=== PATIENT | female | born 1940 | race Caucasian/White ===

== ENCOUNTER 2020-08-02 10:29 | Outpatient (REF) | payer MEDICARE, SELFPAY ==
[2020-08-02 11:45] LABS: Estimated Average Glucose 192 mg/dL; Hemoglobin A1c % 8.3 %
[2020-08-02 12:05] LABS: Alanine Aminotransferase 16 U/L (0-31); Albumin Level 4.2 g/dL (3.5-5.0); Alkaline Phosphatase 49 U/L (39-117); Anion Gap 13 (12-20); Aspartate Amino Transferase 18 U/L (5-31); Bilirubin Total 0.3 mg/dL (0.0-1.0); Blood Urea Nitrogen 17 mg/dL (9-16); Calcium 9.1 mg/dL (8.4-10.2); Carbon Dioxide 25 mmol/L (22-29); Chloride 106 mmol/L (96-108); Estimated Glomerular Filt Rate > 60; Glucose Random 160 mg/dL (60-115); Potassium 4.1 mmol/l (3.3-5.1); Sodium 140 mmol/L (135-145); Total Protein 7.2 g/dL (6.5-8.0)
[2020-08-02 12:15] LABS: Ferritin 18 ng/mL (10-250)
== END 2020-08-02 10:30 | disposition home or self-care (01) ==
LOC: HO.LAB 10:29
PROVIDERS: PCP Internal Medicine; Visit Provider Internal Medicine
DX: Z00.01 Encounter for general adult medical examination with abnormal findings (principal); D64.89 Other specified anemias; E11.65 Type 2 diabetes mellitus with hyperglycemia; N18.30 Chronic kidney disease, stage 3 unspecified; E78.00 Pure hypercholesterolemia, unspecified
CPT/HCPCS: 80053; 82728; 83036

== ENCOUNTER 2020-10-19 10:38 | Outpatient (REF) | payer MEDICARE, SELFPAY ==
[2020-10-19 12:13] LABS: Blood Urea Nitrogen 19 mg/dL (9-16); Estimated Glomerular Filt Rate > 60
== END 2020-10-19 10:39 | disposition home or self-care (01) ==
LOC: HO.LAB 10:38
PROVIDERS: PCP Internal Medicine; Visit Provider Radiology Vascular & Interventional Radiology
DX: R79.89 Other specified abnormal findings of blood chemistry (principal); R94.4 Abnormal results of kidney function studies
CPT/HCPCS: 36415; 82565; 84520

== ENCOUNTER 2021-04-19 11:36 | Outpatient (REF) | payer MEDICARE, SELFPAY ==
[2021-04-19 12:38] LABS: MANUAL DIFF FLAG NO
[2021-04-19 12:45] LABS: Basophils Percent Auto 0.5 % (0-2); Eosinophils Absolute Auto 0.2 X10*3/uL (0.0-0.4); Eosinophils Percent Auto 2.1 % (0-4); Hematocrit 37.2 % (37-47); Imm Gran Abs Auto 0.03 X10*3/uL (0.00-0.03); Imm Gran Pct Auto 0.4 % (0.0-0.4); Lymphocytes Absolute Auto 3.1 X10*3/uL (1.2-4.9); Lymphocytes Percent Auto 39.8 % (20-40); Mean Corpuscular HGB Conc 32.3 g/dl (31.0-35.0); Mean Corpuscular Hemoglobin 29.6 pg (27.0-33.0); Mean Corpuscular Volume 91.9 fL (80-98); Mean Platelet Volume 10.5 fL (9.4-12.3); Monocytes Absolute Auto 0.9 X10*3/uL (0.1-1.2); Monocytes Percent Auto 12.1 % (2-11); Neutrophils Absolute Auto 3.5 X10*3/uL (2.0-8.3); Neutrophils Percent Auto 45.1 % (45-73); Platelet Count 244 X10*3/uL (160-400); Red Blood Count 4.05 X10*6/uL (4.20-5.50); Red Cell Distribution Width 13.9 % (11.0-16.0); White Blood Count 7.8 X10*3/uL (4.8-10.8)
[2021-04-19 13:52] LABS: Alanine Aminotransferase 14 U/L (0-31); Albumin Level 4.2 g/dL (3.5-5.0); Alkaline Phosphatase 52 U/L (39-117); Anion Gap 14 (12-20); Aspartate Amino Transferase 20 U/L (5-31); Bilirubin Total 0.5 mg/dL (0.0-1.0); Blood Urea Nitrogen 20 mg/dL (9-16); Calcium 9.8 mg/dL (8.4-10.2); Carbon Dioxide 23 mmol/L (22-29); Chloride 107 mmol/L (96-108); Estimated Glomerular Filt Rate 59; Glucose Random 146 mg/dL (60-115); Potassium 4.2 mmol/L (3.3-5.1); Sodium 140 mmol/L (135-145); Total Protein 7.2 g/dL (6.5-8.0)
[2021-04-19 13:57] LABS: Vitamin B12 840 pg/mL (200-900)
[2021-04-19 14:12] LABS: Ferritin 31 ng/mL (10-250)
[2021-04-19 14:25] LABS: Estimated Average Glucose 171 mg/dL; Hemoglobin A1c % 7.6 %
== END 2021-04-19 11:37 | disposition home or self-care (01) ==
LOC: HO.LAB 11:36
PROVIDERS: PCP Internal Medicine; Visit Provider Internal Medicine
DX: D50.8 Other iron deficiency anemias (principal); E11.9 Type 2 diabetes mellitus without complications; E78.00 Pure hypercholesterolemia, unspecified; R80.9 Proteinuria, unspecified
CPT/HCPCS: 36415; 80053; 82607; 82728; 83036; 85025

== ENCOUNTER 2021-09-04 09:35 | Outpatient (REF) | payer MEDICARE, SELFPAY ==
[2021-09-04 10:21] LABS: Estimated Average Glucose 148 mg/dL; Hemoglobin A1c % 6.8 %
[2021-09-04 10:34] LABS: Alanine Aminotransferase 24 U/L (0-31); Albumin Level 4.3 g/dL (3.5-5.0); Alkaline Phosphatase 50 U/L (39-117); Anion Gap 13 (12-20); Aspartate Amino Transferase 32 U/L (5-31); Bilirubin Total 0.7 mg/dL (0.0-1.0); Blood Urea Nitrogen 20 mg/dL (9-16); Calcium 10.2 mg/dL (8.4-10.2); Carbon Dioxide 24 mmol/L (22-29); Chloride 107 mmol/L (96-108); Cholesterol 117 mg/dL; Estimated Glomerular Filt Rate 58; Glucose Random 109 mg/dL (60-115); HDL Cholesterol 40 mg/dL; LDL Cholesterol Calculated 57 mg/dl; Potassium 3.9 mmol/L (3.3-5.1); Sodium 140 mmol/L (135-145); Total Protein 7.4 g/dL (6.5-8.0); Triglycerides 103 mg/dL
== END 2021-09-04 09:36 | disposition home or self-care (01) ==
LOC: HO.LAB 09:35
PROVIDERS: PCP Internal Medicine; Visit Provider Internal Medicine
DX: Z00.00 Encounter for general adult medical examination without abnormal findings (principal); E11.9 Type 2 diabetes mellitus without complications; E78.00 Pure hypercholesterolemia, unspecified; I10 Essential (primary) hypertension
CPT/HCPCS: 36415; 80053; 80061; 83036

== ENCOUNTER 2021-12-04 08:12 | Outpatient (REF) | payer MEDICARE, SELFPAY ==
[2021-12-04 09:00] LABS: MANUAL DIFF FLAG NO
[2021-12-04 09:51] LABS: Basophils Absolute Auto 0.1 X10*3/uL (0.0-0.2); Basophils Percent Auto 0.6 % (0-2); Eosinophils Absolute Auto 0.2 X10*3/uL (0.0-0.4); Eosinophils Percent Auto 1.8 % (0-4); Hemoglobin 11.3 g/dl (12.0-16.0); Imm Gran Abs Auto 0.04 X10*3/uL (0.00-0.03); Imm Gran Pct Auto 0.4 % (0.0-0.4); Lymphocytes Absolute Auto 2.8 X10*3/uL (1.2-4.9); Lymphocytes Percent Auto 31.1 % (20-40); Mean Corpuscular HGB Conc 31.4 g/dl (31.0-35.0); Mean Corpuscular Hemoglobin 29.7 pg (27.0-33.0); Mean Corpuscular Volume 94.7 fL (80.0-98.0); Mean Platelet Volume 10.8 fL (9.4-12.3); Monocytes Absolute Auto 1.2 X10*3/uL (0.1-1.2); Monocytes Percent Auto 13.6 % (2-11); Neutrophils Absolute Auto 4.7 x10*3/uL (2.0-8.3); Neutrophils Percent Auto 52.5 % (45-73); Platelet Count 221 X10*3/uL (160-400); Red Cell Distribution Width 13.3 % (11.0-16.0); White Blood Count 8.9 X10*3/uL (4.8-10.8)
[2021-12-04 10:10] LABS: Estimated Average Glucose 143 mg/dL; Hemoglobin A1C 152.2565 umol/L; Hemoglobin A1c % 6.6 %
[2021-12-04 10:32] LABS: Alanine Aminotransferase 22 U/L (0-31); Albumin Level 4.1 g/dL (3.5-5.0); Alkaline Phosphatase 43 U/L (39-117); Anion Gap 15 (12-20); Aspartate Amino Transferase 26 U/L (5-31); Bilirubin Total 0.5 mg/dL (0.0-1.0); Blood Urea Nitrogen 16 mg/dL (9-16); Calcium 9.7 mg/dL (8.4-10.2); Carbon Dioxide 22 mmol/L (22-29); Chloride 105 mmol/L (96-108); Estimated Glomerular Filt Rate > 60; Glucose Random 125 mg/dL (60-115); Potassium 3.9 mmol/L (3.3-5.1); Sodium 138 mmol/L (135-145); Total Protein 6.8 g/dL (6.5-8.0)
[2021-12-04 10:51] LABS: Vitamin B12 1290 pg/mL (200-900)
[2021-12-04 11:29] LABS: Microalbum/Creatinine Ratio Ur 48.4 ug/mg cr
== END 2021-12-04 08:13 | disposition home or self-care (01) ==
LOC: HO.LAB 08:12
PROVIDERS: PCP Internal Medicine; Visit Provider Internal Medicine
DX: D51.0 Vitamin B12 deficiency anemia due to intrinsic factor deficiency (principal); E11.9 Type 2 diabetes mellitus without complications; E78.00 Pure hypercholesterolemia, unspecified; I10 Essential (primary) hypertension
CPT/HCPCS: 36415; 80053; 82043; 82607; 83036; 85025

== ENCOUNTER 2022-05-04 08:19 | Outpatient (REF) | payer MEDICARE, SELFPAY ==
[2022-05-04 08:37] LABS: MANUAL DIFF FLAG NO
[2022-05-04 09:30] LABS: Estimated Average Glucose 137 mg/dL; Hemoglobin A1c % 6.4 %
[2022-05-04 09:33] LABS: Basophils Absolute Auto 0.1 X10*3/uL (0.0-0.2); Basophils Percent Auto 0.6 % (0-2); Eosinophils Absolute Auto 0.2 X10*3/uL (0.0-0.4); Eosinophils Percent Auto 2.2 % (0-4); Hematocrit 35.6 % (37.0-47.0); Hemoglobin 11.7 g/dl (12.0-16.0); Imm Gran Abs Auto 0.04 X10*3/uL (0.00-0.03); Imm Gran Pct Auto 0.4 % (0.0-0.4); Lymphocytes Absolute Auto 3.1 X10*3/uL (1.2-4.9); Lymphocytes Percent Auto 32.7 % (20-40); Mean Corpuscular HGB Conc 32.9 g/dl (31.0-35.0); Mean Corpuscular Hemoglobin 30.6 pg (27.0-33.0); Mean Corpuscular Volume 93.2 fL (80.0-98.0); Mean Platelet Volume 10.7 fL (9.4-12.3); Monocytes Absolute Auto 1.1 X10*3/uL (0.1-1.2); Monocytes Percent Auto 11.4 % (2-11); Neutrophils Absolute Auto 4.9 x10*3/uL (2.0-8.3); Neutrophils Percent Auto 52.7 % (45-73); Platelet Count 248 X10*3/uL (160-400); Red Blood Count 3.82 X10*6/uL (4.20-5.50); White Blood Count 9.4 X10*3/uL (4.8-10.8)
[2022-05-04 09:51] LABS: Alanine Aminotransferase 17 U/L (0-31); Albumin Level 4.2 g/dL (3.5-5.0); Alkaline Phosphatase 47 U/L (39-117); Anion Gap 17 (12-20); Aspartate Amino Transferase 26 U/L (5-31); Bilirubin Total 0.5 mg/dL (0.0-1.0); Blood Urea Nitrogen 17 mg/dL (9-16); Calcium 10.1 mg/dL (8.4-10.2); Carbon Dioxide 23 mmol/L (22-29); Chloride 106 mmol/L (96-108); Cholesterol 130 mg/dL; Estimated Glomerular Filt Rate 54; Glucose Random 125 mg/dL (60-115); HDL Cholesterol 46 mg/dL; LDL Cholesterol Calculated 60 mg/dl; Potassium 4.3 mmol/L (3.3-5.1); Sodium 142 mmol/L (135-145); Triglycerides 120 mg/dL
== END 2022-05-04 08:20 | disposition home or self-care (01) ==
LOC: HO.LAB 08:19
PROVIDERS: PCP Internal Medicine; Visit Provider Internal Medicine
DX: E11.9 Type 2 diabetes mellitus without complications (principal); E78.00 Pure hypercholesterolemia, unspecified; I10 Essential (primary) hypertension
CPT/HCPCS: 36415; 80053; 80061; 83036; 85025

== ENCOUNTER 2023-08-06 10:25 | Inpatient (IN) | payer MEDICARE, OTHER, SELFPAY ==
--- NOTE | ~2023-08-06 | CT_ITS ---
EXAMINATION: CT HEAD WITHOUT CONTRAST CT CERVICAL SPINE WITHOUT CONTRAST CLINICAL INFORMATION: Fall. Head strike. COMPARISON: None available. TECHNIQUE: Contiguous axial imaging was performed from the skull base to vertex without intravenous administration of contrast. This CT examination was performed using dose optimization techniques as appropriate, variously including the following: *Automated exposure control *Adjustment of mA and/or kV according to patient size (this includes techniques or standardized protocols for targeted exams where dose is matched to indication/reason for exam; i.e. extremities or head) *Use of iterative reconstruction technique DLP: 863 mGy-cm FINDINGS: There is mild cerebral volume loss with prominence of the lateral and the third ventricles. The cortical sulci are widened appropriately. The fourth ventricle and basal cisterns are normally outlined. There is mild bilateral periventricular and central white matter diminished attenuation. There is no acute territorial defect, hemorrhage or midline shift. The extra-axial spaces are unremarkable. Calvarium: Intact. Maxilla facial sinuses and mastoids: Clear as visualized. Cervical spine: The alignment is within normal limits. There is mild diffuse cervical disc degenerative change with mild loss of disc space, mild endplate change and posterior osteophytes associated with facet osteoarthritic change with multilevel mild spinal canal and neuroforaminal narrowing. There is no fracture. The soft tissues are unremarkable. The visualized upper lung jackson are clear. CT/CT head/brain wo IV con IMPRESSION: Mild cerebral volume loss and mild bilateral periventricular and central white matter diminished attenuation which is nonspecific but likely represent microvascular disease. No acute intracranial abnormality. Mild cervical disc degenerative change. No fracture or malalignment.
--- NOTE | ~2023-08-06 | CT_ITS ---
EXAMINATION: CT CHEST, ABDOMEN AND PELVIS WITH CONTRAST. CLINICAL INFORMATION: fall urinating blood + thinners. COMPARISON: 11/22/2016. TECHNIQUE: Multidetector volumetric imaging was performed from the thoracic inlet through the pubic symphysis following administration of 85 mL Omnipaque 300 intravenous contrast. Sagittal and coronal reformatted images were obtained on the technologist's workstation. This CT examination was performed using dose optimization techniques as appropriate, variously including the following: *Automated exposure control *Adjustment of mA and/or kV according to patient size (this includes techniques or standardized protocols for targeted exams where dose is matched to indication/reason for exam; i.e. extremities or head) *Use of iterative reconstruction technique DLP: 565 mGy-cm FINDINGS: CHEST: Lung: Bibasilar dependent airspace changes more likely due to atelectasis. No dense consolidation or significant nodularity. Central airways unremarkable. Mediastinum: Vascular calcification within the aorta. Central vessels are patent with prominent vascular calcification in the aorta and coronary vessels. Small hiatal hernia. Pericardium/Pleura: Small pericardial effusion and tiny bilateral pleural effusions. Chest Wall/Axilla: Unremarkable. ABDOMEN/PELVIS: Peritoneal Space:No significant free air or free fluid identified. Liver, Gallbladder, Biliary Tree: The liver is normal in size, shape, and attenuation. No focal hepatic lesion or biliary ductal dilatation is present. The gallbladder is unremarkable with no evidence of radiopaque gallstones, gallbladder wall thickening, or obvious pericholecystic inflammatory changes. Pancreas: Atrophic Spleen: Unremarkable. Adrenal Glands: Mild fullness to the left adrenal gland similar to the 2017 study. Right adrenal gland unremarkable Kidneys and Ureters: Bilateral hydronephrosis and hydroureter with some heterogeneous attenuation within the left renal parenchyma. Pyelonephritis would be difficult to exclude in the acute setting. Bladder: Markedly abnormal bladder with a large 5 cm bladder calculi. There is concentric bladder wall thickening and mucosal enhancement concerning for underlying infectious etiology. Low-lying bladder Gastrointestinal Tract: Colon is redundant with scattered colonic diverticulosis. Majority of the colon is decompressed which makes evaluation for wall thickening difficult. Visualized small bowel is grossly unremarkable. Stomach is decompressed. Abdominal Wall: No significant hernia is appreciated. Lymphovascular Structures: Extensive vascular calcification within the aorta iliac system.. Pelvic Viscera: Unremarkable. Osseus Structures: Multilevel degenerative changes in the spine. I do not appreciate any acute bony abnormality on these images. CT/CT abdomen pelvis w IV con IMPRESSION: 1. I do not appreciate any acute bony abnormality. Chronic appearing changes as described above. 2. Markedly abnormal bladder with concentric bladder wall thickening and mucosal enhancement concerning for underlying infectious etiology. There is bilateral hydronephrosis and hydroureter with some heterogeneous attenuation to the left renal parenchyma. Pyelonephritis would be difficult to exclude in the acute setting.
--- NOTE | ~2023-08-06 | CT_ITS ---
EXAMINATION: CT ABDOMEN AND PELVIS WITH CONTRAST CLINICAL INFORMATION: Hydronephrosis COMPARISON: CT abdomen and pelvis 08/06/2023 TECHNIQUE: Multidetector volumetric images were obtained from the superior aspect of the liver through the pubic symphysis following administration 85 mL of Omnipaque 350 intravenous contrast. Sagittal and coronal reformatted images were obtained on the technologist's workstation. Oral contrast: No This CT examination was performed using dose optimization techniques as appropriate, variously including the following: *Automated exposure control *Adjustment of mA and/or kV according to patient size (this includes techniques or standardized protocols for targeted exams where dose is matched to indication/reason for exam; i.e. extremities or head) *Use of iterative reconstruction technique DLP: 565 mGy-cm FINDINGS: LUNG BASES: There is bibasilar dependent atelectasis. Is a small left pleural effusion LIVER, GALLBLADDER, AND BILIARY TREE: The liver is normal in size, shape, and attenuation. No focal hepatic lesion or biliary ductal dilatation is present. The gallbladder is unremarkable with no evidence of radiopaque gallstones, gallbladder wall thickening, or obvious pericholecystic inflammatory changes. PANCREAS: The pancreas is atrophic. SPLEEN: Unremarkable. ADRENAL GLANDS: The left adrenal gland is enlarged measuring 1.9 x 1.5 cm. Right adrenal gland is normal. KIDNEYS AND URETERS: The kidneys are normal in size, shape, and attenuation. There is mild bilateral hydroureteronephrosis with dilated ureter extending into the bladder. BLADDER: Bladder is mildly distended with a large radiopaque measuring 5 cm. There is mild bladder wall thickening. GASTROINTESTINAL TRACT: There is scattered diverticula and moderate stool seen throughout the colon without colonic distention. The small bowel loops are normal caliber. The stomach is distended and recently ingested food. The appendix is normal caliber. ABDOMINAL WALL: No significant hernia is appreciated. LYMPH NODES: Normal. VASCULAR: Unremarkable. PELVIC VISCERA: No free fluid or free air. The uterus is midline. OSSEOUS STRUCTURES: Degenerative disc changes with vacuum disc phenomena at every disc level. Grade [address] over L[address]/CT abdomen pelvis w IV con IMPRESSION: 1. Mild bilateral hydroureteronephrosis with dilated ureter extending into the bladder. There is a large bladder calculus measuring 5 cm. There is mild bladder wall thickening. 2. Colonic diverticulosis without diverticulitis. 3. Small left pleural effusion with bibasilar dependent atelectasis. 4. Left adrenal gland enlargement. 5. Degenerative disc changes with vacuum disc phenomena at every disc level. Grade 1 anterolisthesis L4 over L5. 6. There is no major change compared to previous CT abdomen exam 08/06/2023 Fleischner guidelines were followed.
--- NOTE | ~2023-08-06 | CT_ITS ---
EXAMINATION: CT HEAD WITHOUT CONTRAST CT CERVICAL SPINE WITHOUT CONTRAST CLINICAL INFORMATION: Fall. Head strike. COMPARISON: None available. TECHNIQUE: Contiguous axial imaging was performed from the skull base to vertex without intravenous administration of contrast. This CT examination was performed using dose optimization techniques as appropriate, variously including the following: *Automated exposure control *Adjustment of mA and/or kV according to patient size (this includes techniques or standardized protocols for targeted exams where dose is matched to indication/reason for exam; i.e. extremities or head) *Use of iterative reconstruction technique DLP: 863 mGy-cm FINDINGS: There is mild cerebral volume loss with prominence of the lateral and the third ventricles. The cortical sulci are widened appropriately. The fourth ventricle and basal cisterns are normally outlined. There is mild bilateral periventricular and central white matter diminished attenuation. There is no acute territorial defect, hemorrhage or midline shift. The extra-axial spaces are unremarkable. Calvarium: Intact. Maxilla facial sinuses and mastoids: Clear as visualized. Cervical spine: The alignment is within normal limits. There is mild diffuse cervical disc degenerative change with mild loss of disc space, mild endplate change and posterior osteophytes associated with facet osteoarthritic change with multilevel mild spinal canal and neuroforaminal narrowing. There is no fracture. The soft tissues are unremarkable. The visualized upper lung jackson are clear. CT/CT cervical spine wo IV con IMPRESSION: Mild cerebral volume loss and mild bilateral periventricular and central white matter diminished attenuation which is nonspecific but likely represent microvascular disease. No acute intracranial abnormality. Mild cervical disc degenerative change. No fracture or malalignment.
[2023-08-06 10:52] VITALS: BP 120/72; BP 128/51; PULSE 69; PULSE 74; RESP 14; TEMP 36.7; O2SAT 97; O2SAT 98; BMI 19.7
[2023-08-06 11:08] LABS: Glucose, Whole Blood 172 mg/dL (60-115)
[2023-08-06 12:18] VITALS: BP 123/44; PULSE 73; RESP 15; O2SAT 98
--- NOTE | 2023-08-06 12:59 | MHC.EDTECH ---
pt was cleaned and changed into hospital gown. pt in bed comfortable with warm blankets. rn aware.
[2023-08-06 14:06] VITALS: BP 124/51; PULSE 67; RESP 20; TEMP 37; O2SAT 98
--- NOTE | 2023-08-06 15:34 | PC.NURSE ---
LATE ENTRY: PT FROM HOME VIA AMBULANCE. PER EMS PT FELL DOWN CARPETED STAIRS ON SATURDAY. PT'S SON RANCHO REPORTED THAT HE HEARD HE FALL AND FOUND HER LAYING ON HER BACK. HE HELPED HER UP OFF THE FLOOR. SINCE FALL PT HAS HAD INCREASED WEAKNESS. PT REPORTED THAT SHE HAS PAIN IN HER R ARM, R LEG, AND LOWER BACK. SHE DENIES HEADACHE/DIZZINESS.
--- NOTE | 2023-08-06 16:08 | ED.FALL ---
HPI - Fall General Chief Complaint: Fall Stated Complaint: FALL T-2,+HS,+THINNERS,HEAD LAC Time Seen by Provider: 08/06/23 16:05 Source: patient and EMS Mode of arrival: EMS Limitations: other (poor historian ) History of Present Illness HPI Narrative: 83-year-old female presents today for evaluation of sustaining a fall down 5 stairs 2 days ago. She reports head strike but denies loss of consciousness. Her son was there to assist here. She reports pain of the right hip and lower back worsened by weightbearing. Ambulation is difficult due to the pain. She reports increased weakness and slight confusion. She denies loss of sensation and foot drop. Patient has history of urinary incontinence-- she denies worsening of this. No nausea or vomiting. Reports hematuria this morning, no dysuria. No chest pain, palpitations, or shortness of breath. No dizziness or syncope. Related Data Home Medications Medication Instructions Recorded Confirmed atorvastatin 40 mg tablet 40 mg PO DAILY 08/06/23 08/06/23 clopidogrel 75 mg tablet 75 mg PO DAILY 08/06/23 08/06/23 metformin 1,000 mg tablet 1,000 mg PO Q12H 08/06/23 08/06/23 nitrofurantoin 1 cap PO BID 08/06/23 08/06/23 monohydrate/macrocrystals 100 mg capsule sitagliptin phosphate 100 mg 100 mg PO DAILY 08/06/23 08/06/23 tablet (Januvia) Allergies Allergy/AdvReac Type Severity Reaction Status Date / Time No Known Allergies Allergy Verified 08/06/23 11:19 [No Known Allergies*] Review of Systems Review of Systems: Constitutional : No Weight loss, No Fever, No Chills, ENT:: No visual changes Cardiovascular : No Chest Pain, No SOB Respiratory : No Cough, No Dyspnea Gastrointestinal : No Nausea, No Vomiting, No Diarrhea, No abdominal Pain, No Hematochezia, No Melena Genitourinary : No Dysuria, No Urinary Frequency, No Hematuria, No Urinary Incontinence, Musculoskeletal : positive lower back pain and hip pain Skin : No Skin Lesions, No rash Neuro : +Weakness. No Numbness, No Paresthesias, no loss of bowel or bladder incontinence, no saddle anesthesia PMFSH Past Medical History Medical History Mixed hyperlipidemia Essential hypertension Non-insulin dependent type 2 diabetes mellitus Social History Patient Tobacco Use Status: Never used Tobacco Physical Exam Vital Signs: Vital Signs: Last Vital Signs Temp 97.9 F 08/06/23 19:34 Pulse 74 08/06/23 19:34 Resp 16 08/06/23 19:34 BP 147/60 H 08/06/23 19:34 Pulse Ox 98 08/06/23 19:34 O2 Del Method Room Air 08/06/23 19:34 BMI result Body Mass Index 19.7 Appearance: Alert.? Oriented X3.? No acute distress.?Slow to follow commands. Head: Normocephalic, atraumatic, no step-offs or deformities Eyes: Pupils equal, round and reactive to light.? Neck: Normal inspection.? Neck supple.? CVS: Normal heart rate and rhythm.? Pulses normal.? Respiratory: No respiratory distress.? Breath sounds normal.? Abdomen: Soft and nontender.? Skin: Skin warm and dry.? Normal skin color.? Normal skin turgor.? Extremities: + echymosis overlying the right elbow. +Pain to palpation of the right hip. No overlying echymosis of the right hip. Right hip ROM limited by pain. Left hip with 5/5 strength and full ROM. 2+ DP and PT pulses bilaterally. Sensation intact in bilateral lower extremities. No lower extremity edema.? No calf ttp. Back: No midline tenderness, no C-spine tenderness, full range of motion, no CVA tenderness bilaterally Neuro: Oriented X 3.? No motor deficit.? No sensory deficit. CN 2-12 intact Course Reevaluation(s) Reevaluation #1: CBC with leukocytosis and a normocytic anemia significantly deviating from her baseline, will obtain an OBS rule out lower GI bleed. Chemistry revealing slightly elevated BUN likely secondary to poor p.o. intake dehydration, CPK within normal limits. Troponin 12.2, EKG nonischemic unlikely ACS. Urine is grossly infected 4+ bacteria, at this time infection suspected blood cultures, lactic acid and ceftriaxone ordered. Time: 18:09 Reevaluation #2: No bony abnormality. On CT chest. Markedly abnormal bladder with concentric bladder wall thickening and mucosal enhancement bilateral hydronephrosis and hydroureter with some heterogeneous attenuation in the left renal parenchyma pyelo cannot be excluded patient receiving ceftriaxone. No CVA tenderness. She is complaining of back pain but no acute findings of osseous structures on CT. The pelvis unremarkable. Head CT no acute intracranial abnormality no fracture or malalignment of cervical spine. Cerebral volume loss. Plan is hospital admission. Time: 19:48 Reevaluation #3: OBS negative. COVID negative. Patient will be seen by Urology tomorrow I did discuss this case with them. Plan hospital admission Time: 21:10 Medications Administered Discontinued Medications Generic Name Dose Route Start Last Admin Trade Name Freq PRN Reason Stop Dose Admin Ceftriaxone Sodium 1 gm/ 50 mls @ 100 mls/hr 08/06/23 18:08 08/06/23 19:55 Sodium Chloride IV 08/06/23 18:37 Infused ONCE ONE Infusion Iohexol 100 ml 08/06/23 18:34 08/06/23 18:35 Iohexol 350 Mg/Ml 100 Ml Infus..Btl IV 08/06/23 18:35 85 ml ONCE ONE Administration Medical Decision Making Medical Decision Making [facility] Narrative: 83-year-old female here for evaluation of increased weakness and right hip and lower back pain after sustaining a witnessed fall down carpeted stairs with associated head strike and no LOC. Physical exam + echymosis overlying the right elbow. +Pain to palpation of the right hip. No overlying echymosis of the right hip. Right hip ROM limited by pain. Left hip with 5/5 strength and full ROM. 2+ DP and PT pulses bilaterally. Sensation intact in bilateral lower extremities. No lower extremity edema.? No calf ttp. Likely right hip fracture, lumbar fracture, UTI, concussion unlikely rhabdomyolisis, cauda equinae, intracranial hemorrhage, ischemic stroke, posterior stroke, osteomyelitis, DE. Will rule out dysrthmia, electrolyte abnormalities and anemia . No preceding sx to fall unlikley acs, pe Plan: CT of chest, abdomen, and pelvis, CMP, CBC, CPK, urinalysis, lipase, troponin Differential Diagnosis Differential Diagnoses: The differential diagnosis associated with the presentation includes Likely right hip fracture, lumbar fracture, UTI, concussion unlikely rhabdomyolisis, cauda equinae, intracranial hemorrhage, ischemic stroke, posterior stroke, osteomyelitis, DE. Will rule out dysrthmia, electrolyte abnormalities and anemia . No preceding sx to fall unlikley acs, pe Admission/Observation Consideration of admission/observation: Escalation of care including admission/observation considered Consult Healthcare Provider Management of the patient was discussed with: Hospitalist Lab Data MDM Lab Attestation statement: I reviewed the patient's lab results. 08/06/23 17:07 08/06/23 17:07 Labs: Lab Results 08/06/23 08/06/23 08/06/23 Range/Units 11:05 16:55 17:07 WBC 15.0 H (4.8-10.8) X10*3/uL RBC 2.74 L D (4.20-5.50) X10*6/uL Hgb 7.4 L D (12.0-16.0) g/dl Hct 23.1 L D (37.0-47.0) % MCV 84.3 (80.0-98.0) fL MCH 27.0 (27.0-33.0) pg MCHC 32.0 (31.0-35.0) g/dl RDW 15.9 (11.0-16.0) % Plt Count 417 H D (160-400) X10*3/uL MPV 10.1 (9.4-12.3) fL Immature Gran % (Auto) 2.3 H (0.0-0.4) % Neut % (Auto) 71.2 (45-73) % Lymph % (Auto) 12.7 L (20-40) % [place] % (Auto) 12.7 H (2-11) % Eos % (Auto) 0.9 (0-4) % Baso % (Auto) 0.2 (0-2) % Lymph # (Auto) 1.9 (1.2-4.9) X10*3/uL [place] # (Auto) 1.9 H (0.1-1.2) X10*3/uL Eos # (Auto) 0.1 (0.0-0.4) X10*3/uL Baso # (Auto) 0.0 (0.0-0.2) X10*3/uL Abs Immat Gran (auto) 0.34 H (0.00-0.03) X10*3/uL Absolute Neuts (auto) 10.7 H (2.0-8.3) x10*3/uL Absolute Nucleated RBC 0.000 (0.0-0.012) X10*3/uL Nucleated RBC % (auto) 0.0 (0.0-0.2) /100WBC Smear Tech's Comments VERIFIED Sodium 134 L (135-145) mmol/L Potassium 4.3 (3.3-5.1) mmol/L Chloride 104 (96-108) mmol/L Carbon Dioxide 21 L (22-29) mmol/L Anion Gap 13 (12-20) BUN 19 H (9-16) mg/dL Creatinine 0.98 (0.5-1.4) mg/dL Estim Creat Clear Calc 37.4 Estimated GFR 54 POC Glucose 172 H (60-115) mg/dL Random Glucose 139 H (60-115) mg/dL Lactic Acid (0.5-2.0) mmol/L Calcium 8.3 L D (8.4-10.2) mg/dL Magnesium 1.7 (1.6-2.6) mg/dL Total Bilirubin 0.7 (0.0-1.0) mg/dL AST 48 H (5-31) U/L ALT 27 (0-31) U/L Alkaline Phosphatase 62 (39-117) U/L Total Creatine Kinase 55 (26-140) U/L Troponin I High Sens 12.2 (<3.5-17.0) ng/L Total Protein 6.3 L (6.5-8.0) g/dL Albumin 2.7 L (3.5-5.0) g/dL Lipase 18 (8-78) U/L Urine Color Yellow Urine Appearance Turbid Urine pH 7.0 (5.0-9.0) Ur Specific [place] 1.010 (1.005-1.025) Urine Protein 300 (3+) H (Neg-Trace) mg/dL Urine Glucose (UA) Negative (Negative) mg/dL Urine Ketones Negative (Negative) mg/dL Urine Blood Moderate (2+) H (Negative) Urine Nitrite Negative (Negative) Ur Leukocyte Esterase Large (3+) H (Negative) Urine RBC >20 H (0-2) /HPF Urine WBC >50 H (0-5) /HPF Ur Squamous Epith Cells 6-10 (0-2) /HPF Urine Bacteria 4+ (None Seen) Hyaline Casts 0-2 (0-2) /LPF COVID-19 (ABIODUN) Negative (Negative) COVID-19 Clin Com See Note 08/06/23 Range/Units 19:01 WBC (4.8-10.8) X10*3/uL RBC (4.20-5.50) X10*6/uL Hgb (12.0-16.0) g/dl Hct (37.0-47.0) % MCV (80.0-98.0) fL MCH (27.0-33.0) pg MCHC (31.0-35.0) g/dl RDW (11.0-16.0) % Plt Count (160-400) X10*3/uL MPV (9.4-12.3) fL Immature Gran % (Auto) (0.0-0.4) % Neut % (Auto) (45-73) % Lymph % (Auto) (20-40) % [place] % (Auto) (2-11) % Eos % (Auto) (0-4) % Baso % (Auto) (0-2) % Lymph # (Auto) (1.2-4.9) X10*3/uL [place] # (Auto) (0.1-1.2) X10*3/uL Eos # (Auto) (0.0-0.4) X10*3/uL Baso # (Auto) (0.0-0.2) X10*3/uL Abs Immat Gran (auto) (0.00-0.03) X10*3/uL Absolute Neuts (auto) (2.0-8.3) x10*3/uL Absolute Nucleated RBC (0.0-0.012) X10*3/uL Nucleated RBC % (auto) (0.0-0.2) /100WBC Smear Tech's Comments Sodium (135-145) mmol/L Potassium (3.3-5.1) mmol/L Chloride (96-108) mmol/L Carbon Dioxide (22-29) mmol/L Anion Gap (12-20) BUN (9-16) mg/dL Creatinine (0.5-1.4) mg/dL Estim Creat Clear Calc Estimated GFR POC Glucose (60-115) mg/dL Random Glucose (60-115) mg/dL Lactic Acid 1.1 (0.5-2.0) mmol/L Calcium (8.4-10.2) mg/dL Magnesium (1.6-2.6) mg/dL Total Bilirubin (0.0-1.0) mg/dL AST (5-31) U/L ALT (0-31) U/L Alkaline Phosphatase (39-117) U/L Total Creatine Kinase (26-140) U/L Troponin I High Sens (<3.5-17.0) ng/L Total Protein (6.5-8.0) g/dL Albumin (3.5-5.0) g/dL Lipase (8-78) U/L Urine Color Urine Appearance Urine pH (5.0-9.0) Ur Specific [place] (1.005-1.025) Urine Protein (Neg-Trace) mg/dL Urine Glucose (UA) (Negative) mg/dL Urine Ketones (Negative) mg/dL Urine Blood (Negative) Urine Nitrite (Negative) Ur Leukocyte Esterase (Negative) Urine RBC (0-2) /HPF Urine WBC (0-5) /HPF Ur Squamous Epith Cells (0-2) /HPF Urine Bacteria (None Seen) Hyaline Casts (0-2) /LPF COVID-19 (ABIODUN) (Negative) COVID-19 Clin Com Independent Interpretation I performed an independent interpretation of an: Plain X-Ray and CT Scan Radiology Impression Discussion of test interpretation with radiology: I have reviewed the radiologist's reading. Critical Care Time Critical Care Time Critical Care Time: Yes Total Critical Care Time: 45 Attestation: I attest to this time spent taking care of the patient, obtaining history, physical, reviewing labs, imaging, speaking to my attending, speaking to specialist. Discharge Plan Discharge Clinical Impression: Fall, Acute UTI, Physical deconditioning, Lower back pain, Bladder outlet obstruction Patient Disposition: Admitted As Inpatient Interventions: Admission Worksheet (ED) Last Done: 08/06/23 20:49 Discharge Date/Time: 08/06/23 20:49
--- NOTE | 2023-08-06 16:10 | ECG_ITS ---
Test Reason : FALL Blood Pressure : / mmHG Vent. Rate : 070 BPM Atrial Rate : 070 BPM P-R Int : 156 ms QRS Dur : 138 ms QT Int : 474 ms P-R-T Axes : 051 081 001 degrees QTc Int : 511 ms Normal sinus rhythm Right bundle branch block Abnormal ECG When compared with ECG of 27-NOV-2017 22:14, Minimal criteria for Inferior infarct are no longer Present Referred By: Iam Medina Electronically Signed By:SHANDA CLARK MD
[2023-08-06 16:30] VITALS: BP 164/66; PULSE 70; RESP 16; TEMP 37.1; O2SAT 98
--- NOTE | 2023-08-06 16:31 | MHC.EDTECH ---
This pct assumed care of pt at 1500 ,vitals taken ,ekg done and was read by Provider Pt was incontinent of urine ,vito care given ,clen gown on ,bed pads change and warm blanket given ,Pt call gonzalez within reach .
--- NOTE | 2023-08-06 16:56 | MHC.EDTECH ---
Patient was assisted unto bedpan ,void ,care given ,urine sample collected ,also covid swab all sent to lab .
[2023-08-06 17:06] LABS: Appearance Urine Turbid; Color Urine Yellow; Glucose Urine UA Negative (Negative); Leukocyte Esterase Urine Large (3+) (Negative); Nitrite Urine Negative (Negative); UMIC TRIGGER UACC YES; Urine Blood Moderate (2+) (Negative); Urine Ketones Negative (Negative); Urine Protein 300 (3+) mg/dL (Neg-Trace)
[2023-08-06 17:15] LABS: Bacteria Urine 4+ (None Seen); Hyaline Casts Urine 0-2 /LPF (0-2); RBC Urine >20 /HPF (0-2); UACC Culture Trigger YES; WBC Urine >50 /HPF (0-5)
[2023-08-06 17:17] LABS: COVID-19 Test Negative (Negative); IDNOW Serial# 08D9AD1C
[2023-08-06 17:28] LABS: Basophils Percent Auto 0.2 % (0-2); Eosinophils Absolute Auto 0.1 X10*3/uL (0.0-0.4); Eosinophils Percent Auto 0.9 % (0-4); Hematocrit 23.1 % (37.0-47.0); Hemoglobin 7.4 g/dl (12.0-16.0); Imm Gran Abs Auto 0.34 X10*3/uL (0.00-0.03); Imm Gran Pct Auto 2.3 % (0.0-0.4); Lymphocytes Absolute Auto 1.9 X10*3/uL (1.2-4.9); Lymphocytes Percent Auto 12.7 % (20-40); MANUAL DIFF FLAG SCAN; Mean Corpuscular Volume 84.3 fL (80.0-98.0); Mean Platelet Volume 10.1 fL (9.4-12.3); Monocytes Absolute Auto 1.9 X10*3/uL (0.1-1.2); Monocytes Percent Auto 12.7 % (2-11); Neutrophils Absolute Auto 10.7 x10*3/uL (2.0-8.3); Neutrophils Percent Auto 71.2 % (45-73); Platelet Count 417 X10*3/uL (160-400); Red Blood Count 2.74 X10*6/uL (4.20-5.50); Red Cell Distribution Width 15.9 % (11.0-16.0); SCAN SMEAR FLAG 1
[2023-08-06 17:34] LABS: Alanine Aminotransferase 27 U/L (0-31); Albumin Level 2.7 g/dL (3.5-5.0); Alkaline Phosphatase 62 U/L (39-117); Anion Gap 13 (12-20); Aspartate Amino Transferase 48 U/L (5-31); Bilirubin Total 0.7 mg/dL (0.0-1.0); Blood Urea Nitrogen 19 mg/dL (9-16); Calcium 8.3 mg/dL (8.4-10.2); Carbon Dioxide 21 mmol/L (22-29); Chloride 104 mmol/L (96-108); Creatinine Clr Calc Pharmacy 37.4; Estimated Glomerular Filt Rate 54; Glucose Random 139 mg/dL (60-115); Lipase 18 U/L (8-78); Magnesium 1.7 mg/dL (1.6-2.6); Potassium 4.3 mmol/L (3.3-5.1); Sodium 134 mmol/L (135-145); Total Protein 6.3 g/dL (6.5-8.0)
[2023-08-06 17:41] LABS: Troponin-I High Sensitivity 12.2 ng/L (<3.5-17.0)
[2023-08-06 18:11] LABS: SLIDE REVIEW VERIFIED
--- NOTE | 2023-08-06 18:15 | PC.NURSE ---
20g iv inserted in LAC. labs drawn and sent. pt tolerated well.
[2023-08-06] MEDS: iohexoL 350 MG/ML 100 ML INFUS..BTL IV (18:35)
[2023-08-06 19:04] VITALS: BP 156/57; PULSE 72; RESP 16; TEMP 36.7
--- NOTE | 2023-08-06 19:04 | MHC.EDTECH ---
lACTIC ACID DRAWN INCLUDING BOTH SETS OF BLOOD CULTURE ,AND SENT TO LAB ,VITALS TAKEN ,PATIENT CALL HOLMAN WITHIN PT REACH .
--- NOTE | 2023-08-06 19:07 | PC.NURSE ---
assumed care of pt at this time 2nd blood cultures drawn however pt ripped out iv. attempting to reestablish access at this time.
[2023-08-06 19:16] LABS: Lactic Acid 1.1 mmol/L (0.5-2.0)
[2023-08-06] MEDS: cefTRIAXone sodium 1 GM in 0.9 % Sodium Chloride 50 ML IV (19:19)
--- NOTE | 2023-08-06 19:22 | PC.NURSE ---
iv established; abx infusing.
--- NOTE | 2023-08-06 19:33 | MHC.EDTECH ---
Patient was inconient of urine ,care given and bedding change ,warm blanket given .
[2023-08-06 19:34] VITALS: BP 147/60; PULSE 74; RESP 16; TEMP 36.6; O2SAT 98
--- NOTE | 2023-08-06 19:46 | P.HPHOSP_ITS ---
History of Present Illness Date of Service: 08/06/23 Chief Complaint: Fall This is a 83-year-old female with pertinent history of tqq-zspzgja-rrldekapt diabetes mellitus, essential hypertension, mixed hyperlipidemia who presents to the emergency department after a fall. Patient states she missed a step and fell down from the stairs. Did hit her head and has pain of the right hip after the fall. Did not lose consciousness prior to the fall. No chest pain or palpitations prior to the fall. No dizziness, lightheadedness or loss of consciousness. Has associated generalized weakness. Patient also complains of difficulty with urination, unclear duration. No dysuria. No fever, chills, chest discomfort, nausea, vomiting, palpitations, shortness of breath, abdominal pain, changes in bowel habits In the emergency department, imaging with bladder wall thickening and bilateral hydronephrosis with hydroureter. Urine concerning for UTI. Review of Systems 2 Constitutional: Constitutional: Reports fatigue and Reports weakness Cardiovascular: Cardiovascular: Reports no additional cardiovascular complaints Respiratory: Respiratory: Reports no additional respiratory complaints Gastrointestinal: Gastrointestinal: Reports no additional gastrointestinal complaints Genitourinary: Genitourinary: Reports urinary incontinence and Reports urinary hesitancy Neurologic: Reports weakness Endocrine: Endocrine: Reports fatigue PMFSH Medical History Mixed hyperlipidemia Essential hypertension Non-insulin dependent type 2 diabetes mellitus Pertinent family history: No family history of early CAD Patient Tobacco Use Status: Never used Tobacco Meds Allergies Allergy/AdvReac Type Severity Reaction Status Date / Time No Known Allergies Allergy Verified 08/06/23 11:19 [No Known Allergies*] Active Medications: Current Medications Acetaminophen (Acetaminophen 325 Mg Tablet) 650 mg PO Q6H PRN PRN Reason: Pain, Mild (Pain Scale 1-3) Dextrose (Dextrose 50 % 25 Gm/50 Ml Syringe) 25 gm IVPUSH Q15M PRN; Protocol PRN Reason: per Hypoglycemia Standing Ord. Enoxaparin Sodium (Enoxaparin Sodium 40 Mg/0.4 Ml Syringe) 40 mg SUBCUT Q24H JAZMYN Glucose (Glucose Gel 15 Gm Gel..Gram.) 15 gm PO Q15M PRN; Protocol PRN Reason: per Hypoglycemia Standing Ord. Ceftriaxone Sodium 1 gm/ (Sodium Chloride) 50 mls @ 100 mls/hr IV Q24H [facility] Insulin Human Lispro (Insulin Lispro 100 Unit/Ml 3 Ml Vial) 0 unit SUBCUT QIDACHS [facility]; Protocol Melatonin (Melatonin 3 Mg Tablet) 6 mg PO BEDTIME PRN PRN Reason: Insomnia Ondansetron HCl (Ondansetron Hcl 4 Mg/2 Ml Vial) 4 mg IVPUSH Q8H PRN PRN Reason: Nausea and Vomiting Sodium Chloride (0.9 % Sodium Chloride Flush 3 Ml Syringe) 3 ml IVFLUSH QSHIFT [facility] Home Medications Medication Instructions Recorded Confirmed Last Taken Type atorvastatin 40 mg tablet 40 mg PO DAILY 08/06/23 08/06/23 Unknown History clopidogrel 75 mg tablet 75 mg PO DAILY 08/06/23 08/06/23 Unknown History metformin 1,000 mg tablet 1,000 mg PO Q12H 08/06/23 08/06/23 Unknown History nitrofurantoin 1 cap PO BID 08/06/23 08/06/23 Unknown History monohydrate/macrocrystals 100 mg capsule sitagliptin phosphate 100 mg 100 mg PO DAILY 08/06/23 08/06/23 Unknown History tablet (Januvia) Physical Exam 2 Vital Signs and Narrative: Vital Signs: Last Vital Signs Temp 97.9 F 08/06/23 19:34 Pulse 74 08/06/23 19:34 Resp 16 08/06/23 19:34 BP 147/60 H 08/06/23 19:34 Pulse Ox 98 08/06/23 19:34 O2 Del Method Room Air 08/06/23 19:34 BMI result Body Mass Index 19.7 Elderly female lying in bed in no distress Neck supple, no JVD Regular rate and rhythm, S1-S2 heard Regular breath sounds bilaterally, no wheezing or crackles appreciated Abdomen soft nontender, no guarding, no rigidity, no CVA tenderness Patient is awake, alert and oriented to self, place, time and person ; follows commands Extremities: Ecchymosis over right upper extremity, limited range of motion of her right lower extremity due to pain Psych: Normal mood No pedal edema Results Labs 08/06/23 17:07 08/06/23 17:07 Labs: Laboratory Results - last 24 hr 08/06/23 08/06/23 08/06/23 11:05 16:55 17:07 MCV 84.3 MCH 27.0 MCHC 32.0 RDW 15.9 Plt Count 417 H D MPV 10.1 Immature Gran % (Auto) 2.3 H Neut % (Auto) 71.2 Lymph % (Auto) 12.7 L [place] % (Auto) 12.7 H Eos % (Auto) 0.9 Baso % (Auto) 0.2 Lymph # (Auto) 1.9 [place] # (Auto) 1.9 H Eos # (Auto) 0.1 Baso # (Auto) 0.0 Abs Immat Gran (auto) 0.34 H Absolute Neuts (auto) 10.7 H Absolute Nucleated RBC 0.000 Nucleated RBC % (auto) 0.0 Smear Tech's Comments VERIFIED Anion Gap 13 Estim Creat Clear Calc 37.4 Estimated GFR 54 POC Glucose 172 H Random Glucose 139 H Lactic Acid Calcium 8.3 L D Magnesium 1.7 Total Bilirubin 0.7 AST 48 H ALT 27 Alkaline Phosphatase 62 Total Creatine Kinase 55 Total Protein 6.3 L Albumin 2.7 L Lipase 18 Urine Color Yellow Urine Appearance Turbid Urine pH 7.0 Ur Specific [place] 1.010 Urine Protein 300 (3+) H Urine Glucose (UA) Negative Urine Ketones Negative Urine Blood Moderate (2+) H Urine Nitrite Negative Ur Leukocyte Esterase Large (3+) H Urine RBC >20 H Urine WBC >50 H Ur Squamous Epith Cells 6-10 Urine Bacteria 4+ Hyaline Casts 0-2 COVID-19 (ABIODUN) Negative COVID-19 Clin Com See Note 08/06/23 19:01 MCV MCH MCHC RDW Plt Count MPV Immature Gran % (Auto) Neut % (Auto) Lymph % (Auto) [place] % (Auto) Eos % (Auto) Baso % (Auto) Lymph # (Auto) [place] # (Auto) Eos # (Auto) Baso # (Auto) Abs Immat Gran (auto) Absolute Neuts (auto) Absolute Nucleated RBC Nucleated RBC % (auto) Smear Tech's Comments Anion Gap Estim Creat Clear Calc Estimated GFR POC Glucose Random Glucose Lactic Acid 1.1 Calcium Magnesium Total Bilirubin AST ALT Alkaline Phosphatase Total Creatine Kinase Total Protein Albumin Lipase Urine Color Urine Appearance Urine pH Ur Specific [place] Urine Protein Urine Glucose (UA) Urine Ketones Urine Blood Urine Nitrite Ur Leukocyte Esterase Urine RBC Urine WBC Ur Squamous Epith Cells Urine Bacteria Hyaline Casts COVID-19 (ABIODUN) COVID-19 Clin Com Imaging Radiologist's Impressions: Impressions Cervical Spine CT 08/06/23 18:35 IMPRESSION: Mild cerebral volume loss and mild bilateral periventricular and central white matter diminished attenuation which is nonspecific but likely represent microvascular disease. No acute intracranial abnormality. Mild cervical disc degenerative change. No fracture or malalignment. Head CT 08/06/23 18:35 IMPRESSION: Mild cerebral volume loss and mild bilateral periventricular and central white matter diminished attenuation which is nonspecific but likely represent microvascular disease. No acute intracranial abnormality. Mild cervical disc degenerative change. No fracture or malalignment. Abdomen/Pelvis CT 08/06/23 18:37 IMPRESSION: 1. I do not appreciate any acute bony abnormality. Chronic appearing changes as described above. 2. Markedly abnormal bladder with concentric bladder wall thickening and mucosal enhancement concerning for underlying infectious etiology. There is bilateral hydronephrosis and hydroureter with some heterogeneous attenuation to the left renal parenchyma. Pyelonephritis would be difficult to exclude in the acute setting. Chest CT 08/06/23 18:37 IMPRESSION: 1. I do not appreciate any acute bony abnormality. Chronic appearing changes as described above. 2. Markedly abnormal bladder with concentric bladder wall thickening and mucosal enhancement concerning for underlying infectious etiology. There is bilateral hydronephrosis and hydroureter with some heterogeneous attenuation to the left renal parenchyma. Pyelonephritis would be difficult to exclude in the acute setting. Assessment and Plan (1) Bilateral hydronephrosis: Status: Acute (2) Acute UTI: Status: Acute (3) Fall: Status: Acute Plan This is a 83-year-old female with pertinent history of vqr-lvbpccm-clugnvpuz diabetes mellitus, essential hypertension, mixed hyperlipidemia who presents to the emergency department after a fall. #. Acute UTI: Initiating empiric IV antibiotics. Follow urine culture. No sepsis #. Bilateral hydronephrosis with bilateral hydroureter: Grace catheter placed in the ER due to urinary retention. Urology consulted, appreciate assistance #. Right lower extremity pain with difficulty ambulation in the setting of mechanical fall: Consulting Physical therapy to evaluate and treat #. Normocytic anemia: Monitor H&H. Stool occult negative in the ER #. Asv-gkfnmbd-zlhvzwgzx diabetes mellitus: Initiating Accu-Cheks with sliding scale insulin #. Mixed hyperlipidemia: On statin DVT prophylaxis: Lovenox Admit as inpatient and will require two night minimum hospital stay for treatment of acute UTI with bilateral hydronephrosis with IV antibiotics (as above), which is not possible in a lesser acute setting. Specialist consult pending Quality Stroke Does the patient have a stroke diagnosis?: No VTE Prior VTE?: No VTE Risk Level:: Medical - moderate - high VTE Device Contraindication: Treatment Not Indicated VTE Drug Contraindication: N/A - Med Ordered
--- NOTE | 2023-08-06 19:49 | MHC.EDTECH ---
Patient was given tuna fish sandwich ,pudding and yaquelin radha for dinner ,Pt belongings list done .
--- NOTE | 2023-08-06 19:55 | PHA.MEDREC ---
Pharmacy Consult ? Medication Reconciliation Pharmacy has completed the medication reconciliation. Spoke with patient's son Alvaro. He recognize some of the names but not all of them. He is unsure if patient on nitrofurantoin but it was filled 08/02 for a 7 day supply. Danelle Goodman, PharmD
--- NOTE | 2023-08-06 20:03 | MHC.EDTECH ---
Patient stool cult collected and sent to lab .
[2023-08-06 20:09] LABS: OBS Int Ctl Valid YES; OBS1 NEGATIVE (NEGATIVE)
[2023-08-06 22:07] LABS: Glucose, Whole Blood 201 mg/dL (60-115)
[2023-08-07] VITALS (7 sets, daily range): BP systolic 120–140; BP diastolic 59–81; PULSE 69–78; RESP 16–18; TEMP 36.1–36.8; O2SAT 96–99
[2023-08-07] MEDS: 0.9 % Sodium Chloride Flush 3 ML SYRINGE IVFLUSH ×4 (00:50→19:11)
[2023-08-07 06:27] LABS: Basophils Percent Auto 0.3 % (0-2); Eosinophils Absolute Auto 0.1 X10*3/uL (0.0-0.4); Eosinophils Percent Auto 0.3 % (0-4); Hematocrit 21.7 % (37.0-47.0); Imm Gran Abs Auto 0.24 X10*3/uL (0.00-0.03); Imm Gran Pct Auto 1.7 % (0.0-0.4); Lymphocytes Absolute Auto 1.6 X10*3/uL (1.2-4.9); MANUAL DIFF FLAG SCAN; Mean Corpuscular HGB Conc 32.3 g/dl (31.0-35.0); Mean Corpuscular Hemoglobin 27.8 pg (27.0-33.0); Mean Corpuscular Volume 86.1 fL (80.0-98.0); Mean Platelet Volume 10.6 fL (9.4-12.3); Monocytes Absolute Auto 1.7 X10*3/uL (0.1-1.2); Monocytes Percent Auto 11.8 % (2-11); Neutrophils Absolute Auto 10.8 x10*3/uL (2.0-8.3); Neutrophils Percent Auto 74.9 % (45-73); Platelet Count 425 X10*3/uL (160-400); Red Blood Count 2.52 X10*6/uL (4.20-5.50); Red Cell Distribution Width 16.2 % (11.0-16.0); SCAN SMEAR FLAG 1; White Blood Count 14.4 X10*3/uL (4.8-10.8)
[2023-08-07 06:43] LABS: Anion Gap 13 (12-20); Blood Urea Nitrogen 18 mg/dL (9-16); Calcium 8.1 mg/dL (8.4-10.2); Carbon Dioxide 20 mmol/L (22-29); Chloride 106 mmol/L (96-108); Creatinine Clr Calc Pharmacy 35.3; Estimated Glomerular Filt Rate 51; Glucose Random 167 mg/dL (60-115); Potassium 3.5 mmol/L (3.3-5.1); Sodium 135 mmol/L (135-145)
[2023-08-07 07:56] LABS: Iron 18 mcg/dL (30-160); Percent Iron Saturation 8 % (15-50); Total Iron Binding Capacity 213 mcg/dL (228-428); Unsaturated Iron Binding 195 ug/dL
[2023-08-07 07:57] LABS: Glucose, Whole Blood 149 mg/dL (60-115)
[2023-08-07 08:30] LABS: SLIDE REVIEW VERIFIED
--- NOTE | 2023-08-07 09:08 | MHC.CLN ---
NUTRITION DIET CHANGED TO DIABETIC 1800 KCALS. PATIENT WITH DX DM AND TAKES DM MEDS.
[2023-08-07] MEDS: Atorvastatin Calcium 40 MG TABLET PO (09:09)
[2023-08-07] MEDS: SITagliptin Phosphate 100 MG TABLET PO (09:10)
[2023-08-07] MEDS: metFORMIN HCl 1,000 MG TABLET 1000 MG PO ×2 (09:10→16:40)
--- NOTE | 2023-08-07 11:10 | MHC.CM.PN ---
EMR REVIEWED, H&H DECREASING, TRANSFUCING AT TIME OF THIS NOTE, PT EVAL PENDING, NO PLAN FOR DC AT THIS TIME, CM WILL CONT TO FOLLOW.
--- NOTE | 2023-08-07 11:48 | P.PNIM_ITS ---
Subjective Subjective Date of Service: 08/07/23 Interval History: Seen and evaluated Feels weak Hb close to 7 no reported bleeding pending urine culture Review of Systems Review of Systems: Yes all other systems are reviewed and are negative Physical Exam 2 Vital Signs: Vital Signs: Last Vital Signs Temp 98 F 08/07/23 11:06 Pulse 73 08/07/23 11:06 Resp 17 08/07/23 11:06 BP 132/61 08/07/23 11:06 Pulse Ox 99 08/07/23 07:44 O2 Del Method Room Air 08/07/23 07:44 BMI result Body Mass Index 19.7 Const: Other: Constitutional : Awake, interactive, frail looking ,not in distress Neck : Normal inspection, Supple Cardiovascular : RRR, no JVP, no lower extremity edema Respiratory : good bilateral air entry, no crackles, wheezes or rhonchi Gastrointestinal: soft, lax, Normal bowel sounds, Non tender Skin : Warm, Dry Neurological : Alert & oriented to self and place, No focal deficit Objective Data Active Medications Acetaminophen (Acetaminophen 325 Mg Tablet) 650 mg PO Q6H PRN PRN Reason: Pain, Mild (Pain Scale 1-3) Atorvastatin Calcium (Atorvastatin Calcium 40 Mg Tablet) 40 mg PO DAILY [facility] Last Admin: 08/07/23 09:09 Dose: 40 mg Documented By: ALISON Clopidogrel Bisulfate (Clopidogrel Bisulfate 75 Mg Tablet) 75 mg PO DAILY [facility] Last Admin: 08/07/23 10:07 Dose: Not Given Documented By: ALISON Non-Admin Reason: hold per Dextrose (Dextrose 50 % 25 Gm/50 Ml Syringe) 25 gm IVPUSH Q15M PRN; Protocol PRN Reason: per Hypoglycemia Standing Ord. Enoxaparin Sodium (Enoxaparin Sodium 40 Mg/0.4 Ml Syringe) 40 mg SUBCUT Q24H [facility] Last Admin: 08/06/23 22:13 Dose: Not Given Documented By: ELLIE Non-Admin Reason: Patient Refused Glucose (Glucose Gel 15 Gm Gel..Gram.) 15 gm PO Q15M PRN; Protocol PRN Reason: per Hypoglycemia Standing Ord. Ceftriaxone Sodium 1 gm/ (Sodium Chloride) 50 mls @ 100 mls/hr IV Q24H [facility] Insulin Human Lispro (Insulin Lispro 100 Unit/Ml 3 Ml Vial) 0 unit SUBCUT QIDACHS [facility]; Protocol Last Admin: 08/07/23 08:39 Dose: Not Given Documented By: ALISON Non-Admin Reason: No Insulin Coverage Melatonin (Melatonin 3 Mg Tablet) 6 mg PO BEDTIME PRN PRN Reason: Insomnia Metformin HCl (Metformin Hcl 1,000 Mg Tablet) 1,000 mg PO BIDWM [facility] Last Admin: 08/07/23 09:10 Dose: 1,000 mg Documented By: ALISON Ondansetron HCl (Ondansetron Hcl 4 Mg/2 Ml Vial) 4 mg IVPUSH Q8H PRN PRN Reason: Nausea and Vomiting Sitagliptin Phosphate (Sitagliptin Phosphate 100 Mg Tablet) 100 mg PO DAILY [facility] Last Admin: 08/07/23 09:10 Dose: 100 mg Documented By: ALISON Sodium Chloride (0.9 % Sodium Chloride Flush 3 Ml Syringe) 3 ml IVFLUSH QSHIFT [facility] Last Admin: 08/07/23 09:10 Dose: 3 ml Documented By: ALISON Labs 08/08/23 05:45 08/08/23 05:45 Labs: Laboratory Results - last 24 hr 08/06/23 08/06/23 08/06/23 11:05 16:55 17:07 MCV 84.3 MCH 27.0 MCHC 32.0 RDW 15.9 Plt Count 417 H D MPV 10.1 Immature Gran % (Auto) 2.3 H Neut % (Auto) 71.2 Lymph % (Auto) 12.7 L [place] % (Auto) 12.7 H Eos % (Auto) 0.9 Baso % (Auto) 0.2 Lymph # (Auto) 1.9 [place] # (Auto) 1.9 H Eos # (Auto) 0.1 Baso # (Auto) 0.0 Abs Immat Gran (auto) 0.34 H Absolute Neuts (auto) 10.7 H Absolute Nucleated RBC 0.000 Nucleated RBC % (auto) 0.0 Smear Tech's Comments VERIFIED Anion Gap 13 Estim Creat Clear Calc 37.4 Estimated GFR 54 POC Glucose 172 H Random Glucose 139 H Lactic Acid Calcium 8.3 L D Magnesium 1.7 Iron TIBC % Saturation Unsat Iron Binding Total Bilirubin 0.7 AST 48 H ALT 27 Alkaline Phosphatase 62 Total Creatine Kinase 55 Total Protein 6.3 L Albumin 2.7 L Lipase 18 Urine Color Yellow Urine Appearance Turbid Urine pH 7.0 Ur Specific [place] 1.010 Urine Protein 300 (3+) H Urine Glucose (UA) Negative Urine Ketones Negative Urine Blood Moderate (2+) H Urine Nitrite Negative Ur Leukocyte Esterase Large (3+) H Urine RBC >20 H Urine WBC >50 H Ur Squamous Epith Cells 6-10 Urine Bacteria 4+ Hyaline Casts 0-2 Stool Occult Blood COVID-19 (ABIODUN) Negative COVID-19 Clin Com See Note Blood Type Antibody Screen Crossmatch 08/06/23 08/06/23 08/06/23 19:01 20:03 21:05 MCV MCH MCHC RDW Plt Count MPV Immature Gran % (Auto) Neut % (Auto) Lymph % (Auto) [place] % (Auto) Eos % (Auto) Baso % (Auto) Lymph # (Auto) [place] # (Auto) Eos # (Auto) Baso # (Auto) Abs Immat Gran (auto) Absolute Neuts (auto) Absolute Nucleated RBC Nucleated RBC % (auto) Smear Tech's Comments Anion Gap Estim Creat Clear Calc Estimated GFR POC Glucose 201 H Random Glucose Lactic Acid 1.1 Calcium Magnesium Iron TIBC % Saturation Unsat Iron Binding Total Bilirubin AST ALT Alkaline Phosphatase Total Creatine Kinase Total Protein Albumin Lipase Urine Color Urine Appearance Urine pH Ur Specific [place] Urine Protein Urine Glucose (UA) Urine Ketones Urine Blood Urine Nitrite Ur Leukocyte Esterase Urine RBC Urine WBC Ur Squamous Epith Cells Urine Bacteria Hyaline Casts Stool Occult Blood NEGATIVE COVID-19 (ABIODUN) COVID-19 Clin Com Blood Type Antibody Screen Crossmatch 08/07/23 08/07/23 08/07/23 05:36 07:43 08:49 MCV 86.1 MCH 27.8 MCHC 32.3 RDW 16.2 H Plt Count 425 H MPV 10.6 Immature Gran % (Auto) 1.7 H Neut % (Auto) 74.9 H Lymph % (Auto) 11.0 L [place] % (Auto) 11.8 H Eos % (Auto) 0.3 Baso % (Auto) 0.3 Lymph # (Auto) 1.6 [place] # (Auto) 1.7 H Eos # (Auto) 0.1 Baso # (Auto) 0.0 Abs Immat Gran (auto) 0.24 H Absolute Neuts (auto) 10.8 H Absolute Nucleated RBC 0.000 Nucleated RBC % (auto) 0.0 Smear Tech's Comments VERIFIED Anion Gap 13 Estim Creat Clear Calc 35.3 Estimated GFR 51 POC Glucose 149 H Random Glucose 167 H Lactic Acid Calcium 8.1 L Magnesium Iron 18 L TIBC 213 L % Saturation 8 L Unsat Iron Binding 195 Total Bilirubin AST ALT Alkaline Phosphatase Total Creatine Kinase Total Protein Albumin Lipase Urine Color Urine Appearance Urine pH Ur Specific [place] Urine Protein Urine Glucose (UA) Urine Ketones Urine Blood Urine Nitrite Ur Leukocyte Esterase Urine RBC Urine WBC Ur Squamous Epith Cells Urine Bacteria Hyaline Casts Stool Occult Blood COVID-19 (ABIODUN) COVID-19 Clin Com Blood Type A Negative Antibody Screen NEGATIVE Crossmatch See Detail Assessment and Plan (1) Symptomatic anemia: Status: Acute (2) Bilateral hydronephrosis: Status: Acute (3) Bladder outlet obstruction: Status: Acute (4) Acute UTI: Status: Acute (5) Fall: Status: Acute Plan This is a 83-year-old female with pertinent history of [id number] diabetes mellitus, essential hypertension, mixed hyperlipidemia who presents to the emergency department after a fall. # Acute UTI Pending urine culture IV antibiotics # Bilateral hydronephrosis with bilateral hydroureter Grace catheter placed urinary retention Urology consult # Right lower extremity pain with difficulty ambulation in the setting of mechanical fall Physical therapy to evaluate and treat # symptomatic Iron def. anemia patient feels weak and lethargic Hb down to 7 Transfuse a unit of PRBCs Stool occult negative, has mild Urine blood get GI eval # Nlo-[id number] diabetes mellitus Initiating Accu-Cheks with sliding scale insulin # Mixed hyperlipidemia On statin DVT prophylaxis: Lovenox Admit as inpatient and will require overnight hospital stay for treatment of acute UTI with bilateral hydronephrosis with IV antibiotics (as above), which is not possible in a lesser acute setting. Specialist consult pending Quality Stroke Does the patient have a stroke diagnosis?: No VTE Prior VTE?: No VTE Risk Level:: Medical - moderate - high VTE Device Contraindication: Treatment Not Indicated VTE Drug Contraindication: N/A - Med Ordered
[2023-08-07 11:49] LABS: Glucose, Whole Blood 206 mg/dL (60-115)
[2023-08-07] MEDS: Insulin Lispro 100 UNIT/ML 3 ML VIAL SUBCUT ×2 (11:55→20:59)
--- NOTE | 2023-08-07 12:17 | P.CNUR_ITS ---
History of Present Illness Consult details Consult date: 08/07/23 Narrative: CC: Bilateral hydronephrosis 83-year-old female Consult repeat bilateral hydronephrosis found on imaging Baseline creatinine 1.0 CT scan - Kidneys and Ureters: Bilateral hydronephrosis and hydroureter with some heterogeneous attenuation within the left renal parenchyma. Pyelonephritis would be difficult to exclude in the acute setting. Bladder: Markedly abnormal bladder with a large 5 cm bladder calculi. There is concentric bladder wall thickening and mucosal enhancement concerning for underlying infectious etiology. Low-lying bladder Neurogenic bladder with large bladder stone. Likely secondary to long-term diabetes although HbA1c has been relatively well controlled. Recommend Grace catheter at current hospital admission Will need outpatient bladder stone removal at later date. Review of Systems 2 Constitutional: Constitutional: Reports as per HPI and Reports no additional constitutional complaints Cardiovascular: Cardiovascular: Reports as per HPI and Reports no additional cardiovascular complaints Respiratory: Respiratory: Reports as per HPI and Reports no additional respiratory complaints Gastrointestinal: Gastrointestinal: Reports as per HPI and Reports no additional gastrointestinal complaints Genitourinary: Genitourinary: Reports as per HPI Musculoskeletal: Musculoskeletal: Reports no additional musculoskeletal complaints and Reports as per HPI Neurologic: Reports system reviewed and no additional complaints, except as documented and Reports as per HPI [facility] Past Medical History Medical History Mixed hyperlipidemia Essential hypertension Non-insulin dependent type 2 diabetes mellitus Social History Household Members: Family Housing: House Do you presently have visiting nurse or other home services: No Patient Tobacco Use Status: Never used Tobacco Meds Allergies Allergy/AdvReac Type Severity Reaction Status Date / Time No Known Allergies Allergy Verified 08/06/23 11:19 [No Known Allergies*] Active Medications: Current Medications Acetaminophen (Acetaminophen 325 Mg Tablet) 650 mg PO Q6H PRN PRN Reason: Pain, Mild (Pain Scale 1-3) Atorvastatin Calcium (Atorvastatin Calcium 40 Mg Tablet) 40 mg PO DAILY [facility] Last Admin: 08/07/23 09:09 Dose: 40 mg Clopidogrel Bisulfate (Clopidogrel Bisulfate 75 Mg Tablet) 75 mg PO DAILY [facility] Last Admin: 08/07/23 10:07 Dose: Not Given Dextrose (Dextrose 50 % 25 Gm/50 Ml Syringe) 25 gm IVPUSH Q15M PRN; Protocol PRN Reason: per Hypoglycemia Standing Ord. Enoxaparin Sodium (Enoxaparin Sodium 40 Mg/0.4 Ml Syringe) 40 mg SUBCUT Q24H [facility] Last Admin: 08/06/23 22:13 Dose: Not Given Glucose (Glucose Gel 15 Gm Gel..Gram.) 15 gm PO Q15M PRN; Protocol PRN Reason: per Hypoglycemia Standing Ord. Ceftriaxone Sodium 1 gm/ (Sodium Chloride) 50 mls @ 100 mls/hr IV Q24H [facility] Insulin Human Lispro (Insulin Lispro 100 Unit/Ml 3 Ml Vial) 0 unit SUBCUT QIDACHS [facility]; Protocol Last Admin: 08/07/23 11:55 Dose: 4 unit Melatonin (Melatonin 3 Mg Tablet) 6 mg PO BEDTIME PRN PRN Reason: Insomnia Metformin HCl (Metformin Hcl 1,000 Mg Tablet) 1,000 mg PO BIDWM [facility] Last Admin: 08/07/23 09:10 Dose: 1,000 mg Ondansetron HCl (Ondansetron Hcl 4 Mg/2 Ml Vial) 4 mg IVPUSH Q8H PRN PRN Reason: Nausea and Vomiting Sitagliptin Phosphate (Sitagliptin Phosphate 100 Mg Tablet) 100 mg PO DAILY [facility] Last Admin: 08/07/23 09:10 Dose: 100 mg Sodium Chloride (0.9 % Sodium Chloride Flush 3 Ml Syringe) 3 ml IVFLUSH QSHIFT [facility] Last Admin: 08/07/23 09:10 Dose: 3 ml Home Medications Medication Instructions Recorded Confirmed Last Taken Type atorvastatin 40 mg tablet 40 mg PO DAILY 08/06/23 08/06/23 Unknown History clopidogrel 75 mg tablet 75 mg PO DAILY 08/06/23 08/06/23 Unknown History metformin 1,000 mg tablet 1,000 mg PO Q12H 08/06/23 08/06/23 Unknown History nitrofurantoin 1 cap PO BID 08/06/23 08/06/23 Unknown History monohydrate/macrocrystals 100 mg capsule sitagliptin phosphate 100 mg 100 mg PO DAILY 08/06/23 08/06/23 Unknown History tablet (Januvia) Physical Exam 2 Vital Signs: Vital Signs: Last Vital Signs Temp 98 F 08/07/23 11:06 Pulse 73 08/07/23 11:06 Resp 17 08/07/23 11:06 BP 132/61 08/07/23 11:06 Pulse Ox 99 08/07/23 07:44 O2 Del Method Room Air 08/07/23 07:44 BMI result Body Mass Index 19.7 Const: General: cooperative, healthy appearing, comfortable and no acute distress Orientation/consciousness: patient oriented x3 HEENT: Face and sinus: Yes normal facial exam Mouth: moist mucous membranes Neck: Neck: Yes normal visual inspection, Yes full ROM and Yes trachea midline Chest: Chest palpation & inspection: normal inspection of the chest Resp: Effort & Inspection: normal respiratory effort, able to speak in complete sentences and no respiratory distress GI: Inspection: Yes normal to inspection Back/Spine/Pelvis: Cervical Spine: normal cervical lordosis Thoracic/Lumbar Spine: thoracic and lumbar spine normal to inspection Skin: General skin exam: no rashes or lesions noted Neuro: General: patient oriented x3, tone normal and moves all extremities Extrem: General: Yes normal to inspection and Yes capillary refill normal Results Labs 08/07/23 05:36 08/07/23 05:36 Labs: Abnormal lab results 08/06/23 08/06/23 08/06/23 Range/Units 11:05 16:55 17:07 WBC 15.0 H (4.8-10.8) X10*3/uL RBC 2.74 L D (4.20-5.50) X10*6/uL Hgb 7.4 L D (12.0-16.0) g/dl Hct 23.1 L D (37.0-47.0) % RDW (11.0-16.0) % Plt Count 417 H D (160-400) X10*3/uL Immature Gran % (Auto) 2.3 H (0.0-0.4) % Neut % (Auto) (45-73) % Lymph % (Auto) 12.7 L (20-40) % [place] % (Auto) 12.7 H (2-11) % [place] # (Auto) 1.9 H (0.1-1.2) X10*3/uL Abs Immat Gran (auto) 0.34 H (0.00-0.03) X10*3/uL Absolute Neuts (auto) 10.7 H (2.0-8.3) x10*3/uL Sodium 134 L (135-145) mmol/L Carbon Dioxide 21 L (22-29) mmol/L BUN 19 H (9-16) mg/dL POC Glucose 172 H (60-115) mg/dL Random Glucose 139 H (60-115) mg/dL Calcium 8.3 L D (8.4-10.2) mg/dL Iron (30-160) mcg/dL TIBC (228-428) mcg/dL % Saturation (15-50) % AST 48 H (5-31) U/L Total Protein 6.3 L (6.5-8.0) g/dL Albumin 2.7 L (3.5-5.0) g/dL Urine Protein 300 (3+) H (Neg-Trace) mg/dL Urine Blood Moderate (2+) H (Negative) Ur Leukocyte Esterase Large (3+) H (Negative) Urine RBC >20 H (0-2) /HPF Urine WBC >50 H (0-5) /HPF Crossmatch 08/06/23 08/07/23 08/07/23 Range/Units 21:05 05:36 07:43 WBC 14.4 H (4.8-10.8) X10*3/uL RBC 2.52 L (4.20-5.50) X10*6/uL Hgb 7.0 L* (12.0-16.0) g/dl Hct 21.7 L (37.0-47.0) % RDW 16.2 H (11.0-16.0) % Plt Count 425 H (160-400) X10*3/uL Immature Gran % (Auto) 1.7 H (0.0-0.4) % Neut % (Auto) 74.9 H (45-73) % Lymph % (Auto) 11.0 L (20-40) % [place] % (Auto) 11.8 H (2-11) % [place] # (Auto) 1.7 H (0.1-1.2) X10*3/uL Abs Immat Gran (auto) 0.24 H (0.00-0.03) X10*3/uL Absolute Neuts (auto) 10.8 H (2.0-8.3) x10*3/uL Sodium (135-145) mmol/L Carbon Dioxide 20 L (22-29) mmol/L BUN 18 H (9-16) mg/dL POC Glucose 201 H 149 H (60-115) mg/dL Random Glucose 167 H (60-115) mg/dL Calcium 8.1 L (8.4-10.2) mg/dL Iron 18 L (30-160) mcg/dL TIBC 213 L (228-428) mcg/dL % Saturation 8 L (15-50) % AST (5-31) U/L Total Protein (6.5-8.0) g/dL Albumin (3.5-5.0) g/dL Urine Protein (Neg-Trace) mg/dL Urine Blood (Negative) Ur Leukocyte Esterase (Negative) Urine RBC (0-2) /HPF Urine WBC (0-5) /HPF Crossmatch 08/07/23 08/07/23 Range/Units 08:49 11:34 WBC (4.8-10.8) X10*3/uL RBC (4.20-5.50) X10*6/uL Hgb (12.0-16.0) g/dl Hct (37.0-47.0) % RDW (11.0-16.0) % Plt Count (160-400) X10*3/uL Immature Gran % (Auto) (0.0-0.4) % Neut % (Auto) (45-73) % Lymph % (Auto) (20-40) % [place] % (Auto) (2-11) % [place] # (Auto) (0.1-1.2) X10*3/uL Abs Immat Gran (auto) (0.00-0.03) X10*3/uL Absolute Neuts (auto) (2.0-8.3) x10*3/uL Sodium (135-145) mmol/L Carbon Dioxide (22-29) mmol/L BUN (9-16) mg/dL POC Glucose 206 H (60-115) mg/dL Random Glucose (60-115) mg/dL Calcium (8.4-10.2) mg/dL Iron (30-160) mcg/dL TIBC (228-428) mcg/dL % Saturation (15-50) % AST (5-31) U/L Total Protein (6.5-8.0) g/dL Albumin (3.5-5.0) g/dL Urine Protein (Neg-Trace) mg/dL Urine Blood (Negative) Ur Leukocyte Esterase (Negative) Urine RBC (0-2) /HPF Urine WBC (0-5) /HPF Crossmatch See Detail Short CBC 08/06/23 08/07/23 Range/Units 17:07 05:36 WBC 15.0 H 14.4 H (4.8-10.8) X10*3/uL Hgb 7.4 L D 7.0 L* (12.0-16.0) g/dl Hct 23.1 L D 21.7 L (37.0-47.0) % Plt Count 417 H D 425 H (160-400) X10*3/uL BMP 08/06/23 08/07/23 17:07 05:36 Sodium 134 L 135 Potassium 4.3 3.5 Chloride 104 106 Carbon Dioxide 21 L 20 L BUN 19 H 18 H Creatinine 0.98 1.04 Calcium 8.3 L D 8.1 L Cardiac Enzymes 08/06/23 Range/Units 17:07 Total Creatine Kinase 55 (26-140) U/L Liver Function 08/06/23 Range/Units 17:07 Total Bilirubin 0.7 (0.0-1.0) mg/dL AST 48 H (5-31) U/L ALT 27 (0-31) U/L Alkaline Phosphatase 62 (39-117) U/L Albumin 2.7 L (3.5-5.0) g/dL Urine 08/06/23 Range/Units 16:55 Urine Color Yellow Urine Appearance Turbid Urine pH 7.0 (5.0-9.0) Ur Specific [place] 1.010 (1.005-1.025) Urine Protein 300 (3+) H (Neg-Trace) mg/dL Urine Glucose (UA) Negative (Negative) mg/dL All other labs normal. Assessment and Plan (1) Bilateral hydronephrosis: Status: Acute (2) Bladder outlet obstruction: Status: Acute (3) Bladder stones: Status: Acute (4) Diabetic neuropathy associated with diabetes mellitus due to underlying condition: Qualifiers: Diabetes mellitus complication detail: with other neurological complication Qualified Code(s): E08.49 - Diabetes mellitus due to underlying condition with other diabetic neurological complication Status: Acute Plan Grace catheter for current admission Outpatient stone procedure Procedures Date of Service Date of Service: 08/07/23
--- NOTE | 2023-08-07 14:44 | MHC.CM.PN ---
IMM 08/07/23, EMR REVIEWED, PT ADMITTED S/P FALL, PT WITH UTI AND KIDNEY STONE WILL NEED OUTPT FOLLOW-UP, CM MET W/PT AND PT'S SON, PT'S UNDERSTANDS /SPEAKS SOME DJIBOUTIAN HOWEVER PT'S SON RANCHO ANSWERED MOST QUESTIONS. PT LIVES W/ AND SON, IS INDEP W/ALL CARE, DENIES USE OF DME/SERVICES, GOAL FOR DC IS HOME SELF CARE. PT VERIFIES PCP IS DR SALDIVAR, SAROJ VACC X2, CM AWAITING GROUP FITNESS INSTRUCTOR/COMPUTER TO REVIEW HCP, PT WILL LIKELY COMPLETE.
[2023-08-07 16:11] LABS: Glucose, Whole Blood 107 mg/dL (60-115)
[2023-08-07] MEDS: cefTRIAXone sodium 1 GM in 0.9 % Sodium Chloride 50 ML IV (18:26)
[2023-08-07] MEDS: Enoxaparin Sodium 40 MG/0.4 ML SYRINGE SUBCUT (19:11)
[2023-08-07 20:36] LABS: Glucose, Whole Blood 159 mg/dL (60-115)
[2023-08-08 04:00] VITALS: BP 130/59; PULSE 69; RESP 16; TEMP 36; O2SAT 97
[2023-08-08 06:25] LABS: Hematocrit 23.9 % (37.0-47.0); Hemoglobin 7.8 g/dl (12.0-16.0); Mean Corpuscular HGB Conc 32.6 g/dl (31.0-35.0); Mean Corpuscular Hemoglobin 28.8 pg (27.0-33.0); Mean Corpuscular Volume 88.2 fL (80.0-98.0); Mean Platelet Volume 10.3 fL (9.4-12.3); Platelet Count 388 X10*3/uL (160-400); Red Blood Count 2.71 X10*6/uL (4.20-5.50); Red Cell Distribution Width 17.3 % (11.0-16.0); White Blood Count 12.7 X10*3/uL (4.8-10.8)
[2023-08-08 06:42] LABS: Anion Gap 11 (12-20); Blood Urea Nitrogen 22 mg/dL (9-16); Calcium 7.9 mg/dL (8.4-10.2); Carbon Dioxide 21 mmol/L (22-29); Chloride 108 mmol/L (96-108); Creatinine Clr Calc Pharmacy 35.3; Estimated Glomerular Filt Rate 51; Glucose Random 151 mg/dL (60-115); Potassium 3.6 mmol/L (3.3-5.1); Sodium 136 mmol/L (135-145)
[2023-08-08 07:29] VITALS: BP 138/62; PULSE 70; RESP 18; TEMP 36.6; O2SAT 97
[2023-08-08 07:42] LABS: Glucose, Whole Blood 138 mg/dL (60-115)
[2023-08-08] MEDS: Acetaminophen 325 MG TABLET 650 MG PO (08:38)
[2023-08-08] MEDS: Iron Sucrose Complex 200 MG in 0.9 % Sodium Chloride 100 ML 440 MG IV (08:39)
[2023-08-08] MEDS: SITagliptin Phosphate 100 MG TABLET PO (08:39)
[2023-08-08] MEDS: Atorvastatin Calcium 40 MG TABLET PO (08:39)
[2023-08-08] MEDS: metFORMIN HCl 1,000 MG TABLET 1000 MG PO ×2 (08:39→17:03)
[2023-08-08] MEDS: 0.9 % Sodium Chloride Flush 3 ML SYRINGE IVFLUSH ×3 (08:39→23:45)
--- NOTE | 2023-08-08 11:01 | P.CNGI_ITS ---
History of Present Illness Data of Consult Service Date: 08/08/23 Requesting physician: Nahun Escobar Primary Care Provider: Unknown Physician HPI Reason for consult: anemia 83-year-old female with history of [id number]-elcnqoisa diabetes mellitus, essential hypertension, mixed hyperlipidemia who I am seeing for assessment for anemia. Patient initially presented with a fall after she missed a step and fell down the stairs. She denies LOC but did hit her head and right hip. She denies chest pain or palpitations prior to the fall. Imaging revealed bladder wall thickening and bilateral hydronephrosis with hydroureter. She was assessed by urology for large bladder stone and neurogenic bladder and had brewer placed. She has moderate blood on UA. She denies melena, no rectal bleeding, nose bleeds or gum bleeding. During the admission her HGB was noted to be drifting down -she does admit to tiredness and feeling weak. Her mother had CRC aged 46, patient herself may have had a colonoscopy 20 yrs ago which was nml per her report Review of Systems 2 Review of Systems: Constitutional : No Weight loss, No Fever, No Chills ENT/Mouth : No sore throat, No Rhinorrhea Eyes: No Swelling, No Redness Cardiovascular : No Chest Pain, No SOB, No Edema Respiratory : No Cough, No Sputum, No Wheezing Gastrointestinal : see HPI Genitourinary : NO Dysuria, No Urinary Frequency, No Hematuria, No Urgency Musculoskeletal : No joint pain, No Myalgias, No Joint Swelling Skin : No Skin Lesions, No rash Neuro : + Weakness, No Numbness, No Dizziness, No Headache Psych : No Anxiety/Panic, No Depression Heme/Lymph: No Bruising, No Lymphadenopathy Endocrine : No Polyuria, No Polydipsia All other systems reviewed and are negative. [facility] Past Medical History Medical History Mixed hyperlipidemia Essential hypertension Non-insulin dependent type 2 diabetes mellitus Family History Pertinent family history: mother-CRC aged 46 Social History Household Members: Family Housing: House Do you presently have visiting nurse or other home services: No Patient Tobacco Use Status: Never used Tobacco service: No Meds Allergies Allergy/AdvReac Type Severity Reaction Status Date / Time No Known Allergies Allergy Verified 08/06/23 11:19 [No Known Allergies*] Active Medications: Current Medications Acetaminophen (Acetaminophen 325 Mg Tablet) 650 mg PO Q6H PRN PRN Reason: Pain, Mild (Pain Scale 1-3) Last Admin: 08/08/23 08:38 Dose: 650 mg Atorvastatin Calcium (Atorvastatin Calcium 40 Mg Tablet) 40 mg PO DAILY [facility] Last Admin: 08/08/23 08:39 Dose: 40 mg Clopidogrel Bisulfate (Clopidogrel Bisulfate 75 Mg Tablet) 75 mg PO DAILY [facility] Last Admin: 08/07/23 10:07 Dose: Not Given Dextrose (Dextrose 50 % 25 Gm/50 Ml Syringe) 25 gm IVPUSH Q15M PRN; Protocol PRN Reason: per Hypoglycemia Standing Ord. Enoxaparin Sodium (Enoxaparin Sodium 40 Mg/0.4 Ml Syringe) 40 mg SUBCUT Q24H [facility] Last Admin: 08/07/23 19:11 Dose: 40 mg Glucose (Glucose Gel 15 Gm Gel..Gram.) 15 gm PO Q15M PRN; Protocol PRN Reason: per Hypoglycemia Standing Ord. Ceftriaxone Sodium 1 gm/ (Sodium Chloride) 50 mls @ 100 mls/hr IV Q24H [facility] Last Infusion: 08/07/23 19:10 Dose: Infused Iron Sucrose 200 mg/ Sodium (Chloride) 110 mls @ 440 mls/hr IV DAILY [facility] Stop: 08/10/23 09:14 Last Infusion: 08/08/23 09:12 Dose: Infused Insulin Human Lispro (Insulin Lispro 100 Unit/Ml 3 Ml Vial) 0 unit SUBCUT QIDACHS [facility]; Protocol Last Admin: 08/08/23 08:33 Dose: Not Given Melatonin (Melatonin 3 Mg Tablet) 6 mg PO BEDTIME PRN PRN Reason: Insomnia Metformin HCl (Metformin Hcl 1,000 Mg Tablet) 1,000 mg PO BIDWM [facility] Last Admin: 08/08/23 08:39 Dose: 1,000 mg Ondansetron HCl (Ondansetron Hcl 4 Mg/2 Ml Vial) 4 mg IVPUSH Q8H PRN PRN Reason: Nausea and Vomiting Sitagliptin Phosphate (Sitagliptin Phosphate 100 Mg Tablet) 100 mg PO DAILY [facility] Last Admin: 08/08/23 08:39 Dose: 100 mg Sodium Chloride (0.9 % Sodium Chloride Flush 3 Ml Syringe) 3 ml IVFLUSH QSHIFT [facility] Last Admin: 08/08/23 08:39 Dose: 3 ml Home Medications Medication Instructions Recorded Confirmed Last Taken Type atorvastatin 40 mg tablet 40 mg PO DAILY 08/06/23 08/06/23 Unknown History clopidogrel 75 mg tablet 75 mg PO DAILY 08/06/23 08/06/23 Unknown History metformin 1,000 mg tablet 1,000 mg PO Q12H 08/06/23 08/06/23 Unknown History nitrofurantoin 1 cap PO BID 08/06/23 08/06/23 Unknown History monohydrate/macrocrystals 100 mg capsule sitagliptin phosphate 100 mg 100 mg PO DAILY 08/06/23 08/06/23 Unknown History tablet (Januvia) Physical Exam 2 Vital Signs: Vital Signs: Last Vital Signs Temp 97.8 F 08/08/23 07:29 Pulse 70 08/08/23 07:29 Resp 18 08/08/23 07:29 BP 138/62 08/08/23 07:29 Pulse Ox 97 08/08/23 07:29 O2 Del Method Room Air 08/08/23 07:29 BMI result Body Mass Index 19.7 EXAM: GENERAL: The patient is frail VITAL SIGNS:see workflow HEENT: Nonicteric sclerae, PERRLA, EOMI. Oropharynx clear. Moist mucous membranes. Conjunctivae appear pale. No thyroid mass. CHEST: Chest wall is nontender. HEART: Regular rate and rhythm without murmurs. LUNGS: Clear to auscultation bilaterally. ABDOMEN: Soft, positive bowel sounds, nontender, no organomegaly.no flank tenderness SKIN: No rash, no excessive bruising, petechiae, or purpura. NEUROLOGIC: Cranial nerves II-XII intact without motor/sensory deficit. Psych: Appearance: grossly normal Results Labs 08/08/23 05:45 08/08/23 05:45 Labs: Short CBC 08/08/23 Range/Units 05:45 WBC 12.7 H (4.8-10.8) X10*3/uL Hgb 7.8 L (12.0-16.0) g/dl Hct 23.9 L (37.0-47.0) % Plt Count 388 (160-400) X10*3/uL BMP 08/08/23 05:45 Sodium 136 Potassium 3.6 Chloride 108 Carbon Dioxide 21 L BUN 22 H Creatinine 1.04 Calcium 7.9 L Microbiology Microbiology Results: Microbiology 08/06/23 Unknown Urine clean catch Urine Culture - Preliminary Culture in progress. 08/06/23 19:02 Blood - Venous Blood Culture - Preliminary No growth after 24 hours. 08/06/23 19:02 Blood - Venous Blood Culture - Preliminary No growth after [address] scan - abdomen: Attestation: I personally reviewed and interpreted this imaging study as follows: (hydronephrosis,scoliosis, atherosclerosis) Assessment and Plan (1) Symptomatic anemia: Status: Acute Plan 1/ Anemia, no overt GIB, does have moderate blood on UA which may be the cause but given the family hx of CRC need to consider GI cause as well. She is also on plavix so slow blood loss mucosal bleeding also possible PLAN: 1/ Patient was offered EGD and colonoscopy for further investigation but she declined at this time, advised if she wishes to pursue can come back and discuss w/ her 2/ cont low dose PPi meantime ketan wth plavix hx. Procedures Date of Service Date of Service: 08/08/23
[2023-08-08 11:19] LABS: Glucose, Whole Blood 142 mg/dL (60-115)
--- NOTE | 2023-08-08 12:06 | P.PNIM_ITS ---
Subjective Subjective Date of Service: 08/08/23 Interval History: Seen and evaluated Feels weak and tired Hb improved to 7.8 no reported bleeding pending urine culture Review of Systems Review of Systems: Yes all other systems are reviewed and are negative Physical Exam 2 Vital Signs: Vital Signs: Last Vital Signs Temp 97.8 F 08/08/23 07:29 Pulse 70 08/08/23 07:29 Resp 18 08/08/23 07:29 BP 138/62 08/08/23 07:29 Pulse Ox 97 08/08/23 07:29 O2 Del Method Room Air 08/08/23 07:29 BMI result Body Mass Index 19.7 Const: Other: Constitutional : Awake, interactive, frail looking ,not in distress Neck : Normal inspection, Supple Cardiovascular : RRR, no JVP, no lower extremity edema Respiratory : good bilateral air entry, no crackles, wheezes or rhonchi Gastrointestinal: soft, lax, Normal bowel sounds, Non tender Skin : Warm, Dry Neurological : Alert & oriented to self and place, No focal deficit Objective Data Active Medications Acetaminophen (Acetaminophen 325 Mg Tablet) 650 mg PO Q6H PRN PRN Reason: Pain, Mild (Pain Scale 1-3) Last Admin: 08/08/23 08:38 Dose: 650 mg Documented By: ALISON Atorvastatin Calcium (Atorvastatin Calcium 40 Mg Tablet) 40 mg PO DAILY [facility] Last Admin: 08/08/23 08:39 Dose: 40 mg Documented By: ALISON Clopidogrel Bisulfate (Clopidogrel Bisulfate 75 Mg Tablet) 75 mg PO DAILY [facility] Last Admin: 08/07/23 10:07 Dose: Not Given Documented By: ALISON Non-Admin Reason: hold per Dextrose (Dextrose 50 % 25 Gm/50 Ml Syringe) 25 gm IVPUSH Q15M PRN; Protocol PRN Reason: per Hypoglycemia Standing Ord. Enoxaparin Sodium (Enoxaparin Sodium 40 Mg/0.4 Ml Syringe) 40 mg SUBCUT Q24H [facility] Last Admin: 08/07/23 19:11 Dose: 40 mg Documented By: [place] Glucose (Glucose Gel 15 Gm Gel..Gram.) 15 gm PO Q15M PRN; Protocol PRN Reason: per Hypoglycemia Standing Ord. Ceftriaxone Sodium 1 gm/ (Sodium Chloride) 50 mls @ 100 mls/hr IV Q24H [facility] Last Infusion: 08/07/23 19:10 Dose: Infused Documented By: [place] Iron Sucrose 200 mg/ Sodium (Chloride) 110 mls @ 440 mls/hr IV DAILY [facility] Stop: 08/10/23 09:14 Last Infusion: 08/08/23 09:12 Dose: Infused Documented By: ALISON Insulin Human Lispro (Insulin Lispro 100 Unit/Ml 3 Ml Vial) 0 unit SUBCUT QIDACHS [facility]; Protocol Last Admin: 08/08/23 08:33 Dose: Not Given Documented By: LAISON Non-Admin Reason: No Insulin Coverage Melatonin (Melatonin 3 Mg Tablet) 6 mg PO BEDTIME PRN PRN Reason: Insomnia Metformin HCl (Metformin Hcl 1,000 Mg Tablet) 1,000 mg PO BIDWM [facility] Last Admin: 08/08/23 08:39 Dose: 1,000 mg Documented By: ALISON Ondansetron HCl (Ondansetron Hcl 4 Mg/2 Ml Vial) 4 mg IVPUSH Q8H PRN PRN Reason: Nausea and Vomiting Sitagliptin Phosphate (Sitagliptin Phosphate 100 Mg Tablet) 100 mg PO DAILY [facility] Last Admin: 08/08/23 08:39 Dose: 100 mg Documented By: ALISON Sodium Chloride (0.9 % Sodium Chloride Flush 3 Ml Syringe) 3 ml IVFLUSH QSHIFT [facility] Last Admin: 08/08/23 08:39 Dose: 3 ml Documented By: ALISON Labs 08/08/23 05:45 08/08/23 05:45 Labs: Laboratory Results - last 24 hr 08/07/23 08/07/23 08/07/23 05:36 08:49 16:07 MCV MCH MCHC RDW Plt Count MPV Absolute Nucleated RBC Nucleated RBC % (auto) Smear Path Review SEE NOTE Anion Gap Estim Creat Clear Calc Estimated GFR POC Glucose 107 Random Glucose Calcium Crossmatch See Detail 08/07/23 08/08/23 08/08/23 20:29 05:45 07:27 MCV 88.2 MCH 28.8 MCHC 32.6 RDW 17.3 H Plt Count 388 MPV 10.3 Absolute Nucleated RBC 0.000 Nucleated RBC % (auto) 0.0 Smear Path Review Anion Gap 11 L Estim Creat Clear Calc 35.3 Estimated GFR 51 POC Glucose 159 H 138 H Random Glucose 151 H Calcium 7.9 L Crossmatch 08/08/23 11:00 MCV MCH MCHC RDW Plt Count MPV Absolute Nucleated RBC Nucleated RBC % (auto) Smear Path Review Anion Gap Estim Creat Clear Calc Estimated GFR POC Glucose 142 H Random Glucose Calcium Crossmatch Microbiology Microbiology Results: Microbiology 08/06/23 Unknown Urine Culture - Preliminary Urine clean catch Culture in progress. 08/06/23 19:02 Blood Culture - Preliminary Blood - Venous No growth after 24 hours. 08/06/23 19:02 Blood Culture - Preliminary Blood - Venous No growth after 24 hours. Assessment and Plan (1) Symptomatic anemia: Status: Acute (2) Bilateral hydronephrosis: Status: Acute (3) Bladder outlet obstruction: Status: Acute (4) Acute UTI: Status: Acute (5) Physical deconditioning: Status: Acute Plan This is a 83-year-old female with pertinent history of [id number] diabetes mellitus, essential hypertension, mixed hyperlipidemia who presents to the emergency department after a fall. # Acute UTI Pending urine culture IV Ceftriaxone # symptomatic Iron def. anemia patient feels weak and lethargic Hb down to 7 Transfuse a unit of PRBCs Stool occult negative, has mild Urine blood Plavix held for now Pending GI eval IV Iron while inpatient # Bilateral hydronephrosis with bilateral hydroureter Grace catheter placed urinary retention Urology consult # Right lower extremity pain with difficulty ambulation in the setting of mechanical fall Physical therapy to evaluate and treat # Qwg-[id number]-[id number] diabetes mellitus Initiating Accu-Cheks with sliding scale insulin # Mixed hyperlipidemia On statin DVT prophylaxis: SCDs Admit as inpatient and will require overnight hospital stay for treatment of acute UTI with bilateral hydronephrosis with IV antibiotics (as above), Eval symptomatic anemia which is not possible in a lesser acute setting. GI Specialist consult pending Quality Stroke Does the patient have a stroke diagnosis?: No VTE Prior VTE?: No VTE Risk Level:: Medical - moderate - high VTE Device Contraindication: Treatment Not Indicated VTE Drug Contraindication: N/A - Med Ordered
--- NOTE | 2023-08-08 12:47 | PC.NURSE ---
MD made aware pt is refusng to get out of bed into chair., offered multiple times. Pt did accept AM care.
[2023-08-08 15:54] VITALS: BP 130/60; PULSE 72; RESP 18; TEMP 36.5; O2SAT 94
[2023-08-08 16:27] LABS: Glucose, Whole Blood 156 mg/dL (60-115)
[2023-08-08] MEDS: Insulin Lispro 100 UNIT/ML 3 ML VIAL SUBCUT (17:02)
[2023-08-08] MEDS: cefTRIAXone sodium 1 GM in 0.9 % Sodium Chloride 50 ML IV (19:39)
[2023-08-08 19:43] VITALS: BP 109/59; PULSE 66; RESP 18; TEMP 36.3; O2SAT 96
[2023-08-08 20:38] LABS: Glucose, Whole Blood 138 mg/dL (60-115)
[2023-08-09 03:16] VITALS: BP 132/63; PULSE 69; RESP 16; TEMP 36.1; O2SAT 97
[2023-08-09 06:35] LABS: Hemoglobin 7.4 g/dl (12.0-16.0); Mean Corpuscular HGB Conc 32.2 g/dl (31.0-35.0); Mean Corpuscular Hemoglobin 28.2 pg (27.0-33.0); Mean Corpuscular Volume 87.8 fL (80.0-98.0); Mean Platelet Volume 10.1 fL (9.4-12.3); NRBC Pct Auto 0.1 /100WBC (0.0-0.2); Platelet Count 408 X10*3/uL (160-400); Red Blood Count 2.62 X10*6/uL (4.20-5.50); Red Cell Distribution Width 17.7 % (11.0-16.0); White Blood Count 14.6 X10*3/uL (4.8-10.8)
[2023-08-09 06:51] LABS: Anion Gap 11 (12-20); Blood Urea Nitrogen 19 mg/dL (9-16); Carbon Dioxide 20 mmol/L (22-29); Chloride 109 mmol/L (96-108); Creatinine Clr Calc Pharmacy 39.4; Estimated Glomerular Filt Rate 58; Glucose Random 158 mg/dL (60-115); Potassium 3.4 mmol/L (3.3-5.1); Sodium 137 mmol/L (135-145)
[2023-08-09 07:22] LABS: Glucose, Whole Blood 146 mg/dL (60-115)
[2023-08-09 07:42] VITALS: BP 126/60; PULSE 74; RESP 16; TEMP 36.4; O2SAT 96
[2023-08-09] MEDS: 0.9 % Sodium Chloride Flush 3 ML SYRINGE IVFLUSH ×2 (08:50→19:49)
[2023-08-09] MEDS: Iron Sucrose Complex 200 MG in 0.9 % Sodium Chloride 100 ML 440 MG IV (08:50)
[2023-08-09] MEDS: SITagliptin Phosphate 100 MG TABLET PO (08:50)
[2023-08-09] MEDS: metFORMIN HCl 1,000 MG TABLET 1000 MG PO ×2 (08:50→18:22)
[2023-08-09] MEDS: Atorvastatin Calcium 40 MG TABLET PO (08:50)
--- NOTE | 2023-08-09 10:11 | MHC.CM.PN ---
PER MD ROUNDS, PT IS NOT READY TO DC, WHITE COUNT STILL ELEVATED DCP STILL TBD PENDING PT EVAL
[2023-08-09 11:42] LABS: Glucose, Whole Blood 167 mg/dL (60-115)
--- NOTE | 2023-08-09 12:12 | HO.PM.IMPN ---
Subjective Subjective Date of Service: 08/09/23 Interval History: Notes improvement however still feels unwell. Review of Systems Denies chest pain Denies shortness of breath Denies nausea vomiting diarrhea Denies fever chills Physical Exam Vital Signs: Vital Signs: Last Vital Signs Temp 97.6 F 08/09/23 07:42 Pulse 74 08/09/23 07:42 Resp 16 08/09/23 07:42 BP 126/60 08/09/23 07:42 Pulse Ox 96 08/09/23 07:42 O2 Del Method Room Air 08/09/23 07:42 BMI result Body Mass Index 19.7 Const: Other: Awake alert no acute distress Resp: Other: Clear to auscultation bilaterally no rales rhonchi or wheezes Cardio: Other: No S4; positive S1-S2; no S3 murmurs rubs or gallops GI: Other: Soft nontender nondistended normoactive bowel sounds Extrem: Other: No edema bilaterally Objective Data Active Medications Acetaminophen (Acetaminophen 325 Mg Tablet) 650 mg PO Q6H PRN PRN Reason: Pain, Mild (Pain Scale 1-3) Last Admin: 08/08/23 08:38 Dose: 650 mg Documented By: ALISON Atorvastatin Calcium (Atorvastatin Calcium 40 Mg Tablet) 40 mg PO DAILY [facility] Last Admin: 08/09/23 08:50 Dose: 40 mg Documented By: SAE Clopidogrel Bisulfate (Clopidogrel Bisulfate 75 Mg Tablet) 75 mg PO DAILY [facility] Last Admin: 08/07/23 10:07 Dose: Not Given Documented By: ALISON Non-Admin Reason: hold per Dextrose (Dextrose 50 % 25 Gm/50 Ml Syringe) 25 gm IVPUSH Q15M PRN; Protocol PRN Reason: per Hypoglycemia Standing Ord. Enoxaparin Sodium (Enoxaparin Sodium 40 Mg/0.4 Ml Syringe) 40 mg SUBCUT Q24H [facility] Last Admin: 08/07/23 19:11 Dose: 40 mg Documented By: DAYTON Glucose (Glucose Gel 15 Gm Gel..Gram.) 15 gm PO Q15M PRN; Protocol PRN Reason: per Hypoglycemia Standing Ord. Ceftriaxone Sodium 1 gm/ (Sodium Chloride) 50 mls @ 100 mls/hr IV Q24H [facility] Last Infusion: 08/08/23 20:54 Dose: Infused Documented By: NATHALIA Iron Sucrose 200 mg/ Sodium (Chloride) 110 mls @ 440 mls/hr IV DAILY [facility] Stop: 08/10/23 09:14 Last Infusion: 08/09/23 09:27 Dose: Infused Documented By: SAE Insulin Human Lispro (Insulin Lispro 100 Unit/Ml 3 Ml Vial) 0 unit SUBCUT QIDACHS [facility]; Protocol Last Admin: 08/09/23 07:56 Dose: Not Given Documented By: SAE Non-Admin Reason: No Insulin Coverage Melatonin (Melatonin 3 Mg Tablet) 6 mg PO BEDTIME PRN PRN Reason: Insomnia Metformin HCl (Metformin Hcl 1,000 Mg Tablet) 1,000 mg PO BIDWM [facility] Last Admin: 08/09/23 08:50 Dose: 1,000 mg Documented By: SAE Ondansetron HCl (Ondansetron Hcl 4 Mg/2 Ml Vial) 4 mg IVPUSH Q8H PRN PRN Reason: Nausea and Vomiting Sitagliptin Phosphate (Sitagliptin Phosphate 100 Mg Tablet) 100 mg PO DAILY [facility] Last Admin: 08/09/23 08:50 Dose: 100 mg Documented By: SAE Sodium Chloride (0.9 % Sodium Chloride Flush 3 Ml Syringe) 3 ml IVFLUSH QSHIFT [facility] Last Admin: 08/09/23 08:50 Dose: 3 ml Documented By: SAE Labs 08/09/23 05:46 08/09/23 05:46 Labs: Laboratory Results - last 24 hr 08/08/23 08/08/23 08/09/23 16:19 20:29 05:46 MCV 87.8 MCH 28.2 MCHC 32.2 RDW 17.7 H Plt Count 408 H MPV 10.1 Absolute Nucleated RBC 0.020 H Nucleated RBC % (auto) 0.1 Anion Gap 11 L Estim Creat Clear Calc 39.4 Estimated GFR 58 POC Glucose 156 H 138 H Random Glucose 158 H Calcium 8.0 L 08/09/23 08/09/23 07:19 11:39 MCV MCH MCHC RDW Plt Count MPV Absolute Nucleated RBC Nucleated RBC % (auto) Anion Gap Estim Creat Clear Calc Estimated GFR POC Glucose 146 H 167 H Random Glucose Calcium Microbiology Microbiology Results: Microbiology 08/06/23 Unknown Urine Culture - Preliminary Urine clean catch Gram negative alyssia 08/06/23 19:02 Blood Culture - Preliminary Blood - Venous No growth after 48 hours. 08/06/23 19:02 Blood Culture - Preliminary Blood - Venous No growth after 48 hours. Assessment and Plan (1) Acute UTI: Status: Acute (2) Symptomatic anemia: Status: Acute (3) Bilateral hydronephrosis: Status: Acute (4) Essential hypertension: Status: Acute (5) Non-insulin dependent type 2 diabetes mellitus: Status: Acute Plan This is a 83-year-old female with pertinent history of maj-qqlmdhr-uufkdtyje diabetes mellitus, essential hypertension, mixed hyperlipidemia who presents to the emergency department after a fall; presenting CT demonstrated hydronephrosis and urine with active sediment. Started on ceftriaxone however white count persistently elevated 1.Acute UTI -urine culture with 50-100 K mixed bettina; given persistent elevated white count and clinical presentation will continue ceftriaxone and re-culture urine -follow daily CBCs -ceftriaxone(3) -await Urologuy input 2.Symptomatic -fair response to 1 unit packed cells; hemoglobin stable -Stool occult negative, has mild Urine blood -plavix on hold. Repeat CBC in a.m. and decide appropriateness -GI eval ; recommends: EGD/colon however patient declines at this time -IV Iron while inpatient 3.Bilateral hydronephrosis with bilateral hydroureter -Grace catheter placed .. Good output -await Urology input; may need repeat imaging if white count persistent 4.Fng-cjtcgba-pxfbmloxv diabetes mellitus -acceptable control on current therapies -lispro correctional scale -adjust as indicated SCDs Full code Requires ongoing hospitalization for IV antibiotics to treat with likely acute UTI in backdrop of persistent leukocytosis. Await specialist's input Quality Stroke Does the patient have a stroke diagnosis?: No VTE Prior VTE?: No VTE Risk Level:: Medical - moderate - high VTE Device Contraindication: Treatment Not Indicated VTE Drug Contraindication: N/A - Med Ordered
[2023-08-09] MEDS: Insulin Lispro 100 UNIT/ML 3 ML VIAL SUBCUT (12:56)
[2023-08-09 16:00] VITALS: BP 120/62; PULSE 72; RESP 16; TEMP 36.2; O2SAT 94
[2023-08-09 17:07] LABS: Glucose, Whole Blood 93 mg/dL (60-115)
[2023-08-09 19:28] VITALS: BP 134/68; PULSE 73; RESP 16; TEMP 36.5; O2SAT 93
[2023-08-09] MEDS: cefTRIAXone sodium 1 GM in 0.9 % Sodium Chloride 50 ML IV (19:49)
[2023-08-09 21:31] LABS: Glucose, Whole Blood 107 mg/dL (60-115)
[2023-08-10 03:18] VITALS: BP 145/63; PULSE 74; RESP 17; TEMP 36.2; O2SAT 97
[2023-08-10 06:15] LABS: MANUAL DIFF FLAG NO
[2023-08-10 06:21] LABS: Basophils Absolute Auto 0.1 X10*3/uL (0.0-0.2); Basophils Percent Auto 0.4 % (0-2); Eosinophils Absolute Auto 0.1 X10*3/uL (0.0-0.4); Eosinophils Percent Auto 0.9 % (0-4); Hematocrit 25.7 % (37.0-47.0); Hemoglobin 8.3 g/dl (12.0-16.0); Imm Gran Abs Auto 0.15 X10*3/uL (0.00-0.03); Imm Gran Pct Auto 1.3 % (0.0-0.4); Lymphocytes Absolute Auto 1.8 X10*3/uL (1.2-4.9); Lymphocytes Percent Auto 15.9 % (20-40); Mean Corpuscular HGB Conc 32.3 g/dl (31.0-35.0); Mean Corpuscular Hemoglobin 28.7 pg (27.0-33.0); Mean Corpuscular Volume 88.9 fL (80.0-98.0); Monocytes Percent Auto 8.4 % (2-11); Neutrophils Absolute Auto 8.3 x10*3/uL (2.0-8.3); Neutrophils Percent Auto 73.1 % (45-73); Platelet Count 451 X10*3/uL (160-400); Red Blood Count 2.89 X10*6/uL (4.20-5.50); Red Cell Distribution Width 18.4 % (11.0-16.0); White Blood Count 11.4 X10*3/uL (4.8-10.8)
[2023-08-10 06:41] LABS: Alanine Aminotransferase 18 U/L (0-31); Albumin Level 2.6 g/dL (3.5-5.0); Alkaline Phosphatase 56 U/L (39-117); Anion Gap 11 (12-20); Aspartate Amino Transferase 28 U/L (5-31); Bilirubin Total 0.6 mg/dL (0.0-1.0); Blood Urea Nitrogen 17 mg/dL (9-16); Calcium 7.9 mg/dL (8.4-10.2); Carbon Dioxide 21 mmol/L (22-29); Chloride 108 mmol/L (96-108); Creatinine Clr Calc Pharmacy 45.3; Estimated Glomerular Filt Rate > 60; Glucose Fasting 120 mg/dL (60-99); Potassium 3.5 mmol/L (3.3-5.1); Sodium 136 mmol/L (135-145); Total Protein 5.3 g/dL (6.5-8.0)
[2023-08-10 07:20] VITALS: BP 137/61; PULSE 76; RESP 20; TEMP 36.2; O2SAT 99
[2023-08-10] MEDS: SITagliptin Phosphate 100 MG TABLET PO (08:19)
[2023-08-10] MEDS: Atorvastatin Calcium 40 MG TABLET PO (08:19)
[2023-08-10] MEDS: Iron Sucrose Complex 200 MG in 0.9 % Sodium Chloride 100 ML 440 MG IV (08:19)
[2023-08-10] MEDS: metFORMIN HCl 1,000 MG TABLET 1000 MG PO ×2 (08:19→16:56)
[2023-08-10 08:20] LABS: Glucose, Whole Blood 105 mg/dL (60-115)
[2023-08-10] MEDS: 0.9 % Sodium Chloride Flush 3 ML SYRINGE IVFLUSH ×2 (08:20→19:25)
[2023-08-10 10:26] VITALS: BP 137/61
[2023-08-10 11:14] LABS: Glucose, Whole Blood 140 mg/dL (60-115)
--- NOTE | 2023-08-10 13:24 | P.PNIM_ITS ---
Subjective Subjective Date of Service: 08/10/23 Interval History: Continues to improve; brighter today. Seen by PT this a.m. Review of Systems Denies chest pain Denies shortness of breath Denies nausea vomiting diarrhea Denies fever chills Physical Exam 2 Vital Signs: Vital Signs: Last Vital Signs Temp 97.2 F 08/10/23 07:20 Pulse 76 08/10/23 07:20 Resp 20 08/10/23 07:20 BP 137/61 08/10/23 10:26 Pulse Ox 99 08/10/23 07:20 O2 Del Method Room Air 08/10/23 07:20 BMI result Body Mass Index 19.7 Const: Other: Awake alert no acute distress Resp: Other: Clear to auscultation bilaterally no rales rhonchi or wheezes Cardio: Other: No S4; positive S1-S2; no S3 murmurs rubs or gallops GI: Other: Soft nontender nondistended normoactive bowel sounds Extrem: Other: No edema bilaterally Objective Data Active Medications Acetaminophen (Acetaminophen 325 Mg Tablet) 650 mg PO Q6H PRN PRN Reason: Pain, Mild (Pain Scale 1-3) Last Admin: 08/08/23 08:38 Dose: 650 mg Documented By: ALISON Atorvastatin Calcium (Atorvastatin Calcium 40 Mg Tablet) 40 mg PO DAILY [facility] Last Admin: 08/10/23 08:19 Dose: 40 mg Documented By: SAE Clopidogrel Bisulfate (Clopidogrel Bisulfate 75 Mg Tablet) 75 mg PO DAILY [facility] Last Admin: 08/07/23 10:07 Dose: Not Given Documented By: ALISON Non-Admin Reason: hold per Dextrose (Dextrose 50 % 25 Gm/50 Ml Syringe) 25 gm IVPUSH Q15M PRN; Protocol PRN Reason: per Hypoglycemia Standing Ord. Enoxaparin Sodium (Enoxaparin Sodium 40 Mg/0.4 Ml Syringe) 40 mg SUBCUT Q24H [facility] Last Admin: 08/07/23 19:11 Dose: 40 mg Documented By: DAYTON Glucose (Glucose Gel 15 Gm Gel..Gram.) 15 gm PO Q15M PRN; Protocol PRN Reason: per Hypoglycemia Standing Ord. Ceftriaxone Sodium 1 gm/ (Sodium Chloride) 50 mls @ 100 mls/hr IV Q24H [facility] Last Infusion: 08/09/23 20:19 Dose: Infused Documented By: NEREIDA Insulin Human Lispro (Insulin Lispro 100 Unit/Ml 3 Ml Vial) 0 unit SUBCUT QIDACHS [facility]; Protocol Last Admin: 08/10/23 11:18 Dose: Not Given Documented By: SAE Non-Admin Reason: No Insulin Coverage Melatonin (Melatonin 3 Mg Tablet) 6 mg PO BEDTIME PRN PRN Reason: Insomnia Metformin HCl (Metformin Hcl 1,000 Mg Tablet) 1,000 mg PO BIDWM [facility] Last Admin: 08/10/23 08:19 Dose: 1,000 mg Documented By: SAE Ondansetron HCl (Ondansetron Hcl 4 Mg/2 Ml Vial) 4 mg IVPUSH Q8H PRN PRN Reason: Nausea and Vomiting Sitagliptin Phosphate (Sitagliptin Phosphate 100 Mg Tablet) 100 mg PO DAILY [facility] Last Admin: 08/10/23 08:19 Dose: 100 mg Documented By: SAE Sodium Chloride (0.9 % Sodium Chloride Flush 3 Ml Syringe) 3 ml IVFLUSH QSHIFT [facility] Last Admin: 08/10/23 08:20 Dose: 3 ml Documented By: SAE Labs 08/10/23 05:56 08/10/23 05:56 Labs: Laboratory Results - last 24 hr 08/09/23 08/09/23 08/10/23 16:51 20:49 05:56 MCV 88.9 MCH 28.7 MCHC 32.3 RDW 18.4 H Plt Count 451 H MPV 10.0 Immature Gran % (Auto) 1.3 H Neut % (Auto) 73.1 H Lymph % (Auto) 15.9 L Winn % (Auto) 8.4 Eos % (Auto) 0.9 Baso % (Auto) 0.4 Lymph # (Auto) 1.8 Winn # (Auto) 1.0 Eos # (Auto) 0.1 Baso # (Auto) 0.1 Abs Immat Gran (auto) 0.15 H Absolute Neuts (auto) 8.3 Absolute Nucleated RBC 0.000 Nucleated RBC % (auto) 0.0 Anion Gap 11 L Estim Creat Clear Calc 45.3 Estimated GFR > 60 POC Glucose 93 107 Fasting Glucose 120 H Calcium 7.9 L Total Bilirubin 0.6 AST 28 ALT 18 Alkaline Phosphatase 56 Total Protein 5.3 L Albumin 2.6 L 08/10/23 08/10/23 07:24 11:07 MCV MCH MCHC RDW Plt Count MPV Immature Gran % (Auto) Neut % (Auto) Lymph % (Auto) Winn % (Auto) Eos % (Auto) Baso % (Auto) Lymph # (Auto) Winn # (Auto) Eos # (Auto) Baso # (Auto) Abs Immat Gran (auto) Absolute Neuts (auto) Absolute Nucleated RBC Nucleated RBC % (auto) Anion Gap Estim Creat Clear Calc Estimated GFR POC Glucose 105 140 H Fasting Glucose Calcium Total Bilirubin AST ALT Alkaline Phosphatase Total Protein Albumin Microbiology Microbiology Results: Microbiology 08/06/23 Unknown Urine Culture - Final Urine clean catch Escherichia coli Assessment and Plan (1) Acute UTI: Status: Acute (2) Symptomatic anemia: Status: Acute Plan This is a 83-year-old female with pertinent history of laz-wmtwqci-eqatsvkeh diabetes mellitus, essential hypertension, mixed hyperlipidemia who presents to the emergency department after a fall; presenting CT demonstrated hydronephrosis and urine with active sediment. Started on ceftriaxone ; urine culture E coli sensitive to ceftriaxone 1.Acute UTI.. E coli sensitive to ceftriaxone -urine culture with 50-100 K mixed bettian; given persistent elevated white count and clinical presentation will continue ceftriaxone and re-culture urine -follow daily CBCs -ceftriaxone(3).. Switch to Ceftin upon DC -voiding trial 2.Symptomatic anemia -fair response to 1 unit packed cells; hemoglobin stable -Stool occult negative, has mild Urine blood -plavix on hold. Repeat CBC in a.m. and decide appropriateness -GI eval ; recommends: EGD/colon however patient declines at this time -IV Iron while inpatient 3.Bilateral hydronephrosis with bilateral hydroureter -Grace catheter placed .. Good output -await Urology input; may need repeat imaging if white count persistent 4.Vje-mytjqid-vivifwdqg diabetes mellitus -acceptable control on current therapies -lispro correctional scale -adjust as indicated SCDs Full code Requires ongoing hospitalization for IV antibiotics to treat with likely acute UTI in backdrop of persistent leukocytosis. Await specialist's input Quality Stroke Does the patient have a stroke diagnosis?: No VTE Prior VTE?: No VTE Risk Level:: Medical - moderate - high VTE Device Contraindication: Treatment Not Indicated VTE Drug Contraindication: N/A - Med Ordered
[2023-08-10 15:16] VITALS: BP 128/60; PULSE 74; RESP 20; TEMP 36.6; O2SAT 97
[2023-08-10 16:09] LABS: Glucose, Whole Blood 110 mg/dL (60-115)
--- NOTE | 2023-08-10 18:10 | PC.NURSE ---
Indwelling urinary catheter removed at 1240. Patient due to void by 1840. Approx 1800: non-measurable void due to incontinence. Disposable bed pad moderately soaked with urine. PVR bladder scan for 98mL.
[2023-08-10 19:06] VITALS: BP 116/63; PULSE 68; RESP 16; TEMP 36.1; O2SAT 97
[2023-08-10] MEDS: cefTRIAXone sodium 1 GM in 0.9 % Sodium Chloride 50 ML IV (19:25)
[2023-08-10 20:33] LABS: Glucose, Whole Blood 116 mg/dL (60-115)
[2023-08-11 03:46] VITALS: BP 145/69; PULSE 69; RESP 16; TEMP 37; O2SAT 97
[2023-08-11 06:24] LABS: MANUAL DIFF FLAG NO
[2023-08-11 06:42] LABS: Alanine Aminotransferase 21 U/L (0-31); Albumin Level 2.7 g/dL (3.5-5.0); Alkaline Phosphatase 59 U/L (39-117); Anion Gap 11 (12-20); Aspartate Amino Transferase 34 U/L (5-31); Basophils Absolute Auto 0.1 X10*3/uL (0.0-0.2); Basophils Percent Auto 0.5 % (0-2); Bilirubin Total 0.6 mg/dL (0.0-1.0); Blood Urea Nitrogen 18 mg/dL (9-16); Calcium 8.1 mg/dL (8.4-10.2); Carbon Dioxide 22 mmol/L (22-29); Chloride 109 mmol/L (96-108); Creatinine Clr Calc Pharmacy 41.2; Eosinophils Absolute Auto 0.1 X10*3/uL (0.0-0.4); Eosinophils Percent Auto 0.4 % (0-4); Estimated Glomerular Filt Rate > 60; Glucose Fasting 121 mg/dL (60-99); Hemoglobin 8.7 g/dl (12.0-16.0); Imm Gran Abs Auto 0.12 X10*3/uL (0.00-0.03); Imm Gran Pct Auto 0.8 % (0.0-0.4); Lymphocytes Percent Auto 12.9 % (20-40); Mean Corpuscular HGB Conc 32.2 g/dl (31.0-35.0); Mean Corpuscular Hemoglobin 29.4 pg (27.0-33.0); Mean Corpuscular Volume 91.2 fL (80.0-98.0); Mean Platelet Volume 10.3 fL (9.4-12.3); Monocytes Absolute Auto 1.1 X10*3/uL (0.1-1.2); Neutrophils Percent Auto 78.4 % (45-73); Platelet Count 481 X10*3/uL (160-400); Red Blood Count 2.96 X10*6/uL (4.20-5.50); Red Cell Distribution Width 18.9 % (11.0-16.0); Sodium 138 mmol/L (135-145); Total Protein 5.5 g/dL (6.5-8.0); White Blood Count 15.3 X10*3/uL (4.8-10.8)
[2023-08-11 07:49] VITALS: BP 150/70; PULSE 67; RESP 18; TEMP 36.1; O2SAT 97
[2023-08-11 07:49] LABS: Glucose, Whole Blood 105 mg/dL (60-115)
[2023-08-11] MEDS: Atorvastatin Calcium 40 MG TABLET PO (08:36)
[2023-08-11] MEDS: SITagliptin Phosphate 100 MG TABLET PO (08:36)
[2023-08-11] MEDS: 0.9 % Sodium Chloride Flush 3 ML SYRINGE IVFLUSH ×3 (08:38→19:24)
--- NOTE | 2023-08-11 11:22 | P.DS_ITS ---
DS: Providers Provider Date of Service: 08/11/23 Date of admission: 08/06/23 19:44 Date of discharge: 08/11/23 Primary care physician: Unknown Physician Consults: 08/06/23 19:59 Consult to Urology Routine Consulting Provider: Jacky Kurtz Reason for consultation: bilateral hydronephrosis 08/08/23 07:09 Consult to Gastroenterology Routine Consulting Provider: Jayson Gonzales Reason for consultation: CLARK, negative occult stool DS: Diagnosis Discharge Diagnosis (1) Acute UTI: Status: Acute (2) Symptomatic anemia: Status: Acute DS: Summary Hospital Course Hospital Course: 83-year-old female with pertinent history of cxr-zemxtyh-xgkexyflh diabetes mellitus, essential hypertension, mixed hyperlipidemia who presents to the emergency department after a fall. Patient states she missed a step and fell down from the stairs. Did hit her head and has pain of the right hip after the fall. Did not lose consciousness prior to the fall. No chest pain or palpitations prior to the fall. No dizziness, lightheadedness or loss of consciousness. Has associated generalized weakness. Patient also complains of difficulty with urination, unclear duration. No dysuria. No fever, chills, chest discomfort, nausea, vomiting, palpitations, shortness of breath, abdominal pain, changes in bowel habits In the emergency department, imaging with bladder wall thickening and bilateral hydronephrosis with hydroureter. Urine concerning for UTI. Hospital Course Admitted to general medical floor; Grace was placed with good output. She was empirically placed on ceftriaxone for active urinary sediment. Ultimately urine grew E coli sensitive to ceftriaxone. She continued to improve over the course of the next 72 hours. On the day prior to discharge her Grace was removed and she is voiding fine with limited residuals. At this point in time she is medically acceptable for discharge to a course of oral Ceftin and can follow-up with Urology as an outpatient Time Attestation Discharge coordination time: Greater than 30 minutes Quality: Safe Use of Opioids Does Pt have an Active Cancer Diagnosis on the Problem List?: No Quality: Stroke Does the patient have a stroke diagnosis?: No Physical Exam Vital Signs: Vital Signs: Last Vital Signs Temp 97 F 08/11/23 07:49 Pulse 67 08/11/23 07:49 Resp 18 08/11/23 07:49 BP 150/70 H 08/11/23 07:49 Pulse Ox 97 08/11/23 07:49 O2 Del Method Room Air 08/11/23 07:49 BMI result Body Mass Index 19.7 Const: Other: Awake alert no acute distress Resp: Other: Clear to auscultation bilaterally no rales rhonchi or wheezes Cardio: Other: No S4; positive S1-S2; no S3 murmurs rubs or gallops GI: Other: Soft nontender nondistended normoactive bowel sounds Extrem: Other: No edema bilaterally DS: Data Data Completed and Pending Labs on day of discharge: Laboratory Results - last 24 hr 08/10/23 08/10/23 08/11/23 16:02 20:19 05:50 WBC 15.3 H RBC 2.96 L Hgb 8.7 L Hct 27.0 L MCV 91.2 MCH 29.4 MCHC 32.2 RDW 18.9 H Plt Count 481 H MPV 10.3 Immature Gran % (Auto) 0.8 H Neut % (Auto) 78.4 H Lymph % (Auto) 12.9 L Trigg % (Auto) 7.0 Eos % (Auto) 0.4 Baso % (Auto) 0.5 Lymph # (Auto) 2.0 Trigg # (Auto) 1.1 Eos # (Auto) 0.1 Baso # (Auto) 0.1 Abs Immat Gran (auto) 0.12 H Absolute Neuts (auto) 12.0 H Absolute Nucleated RBC 0.000 Nucleated RBC % (auto) 0.0 Sodium 138 Potassium 4.0 Chloride 109 H Carbon Dioxide 22 Anion Gap 11 L BUN 18 H Creatinine 0.89 Estim Creat Clear Calc 41.2 Estimated GFR > 60 POC Glucose 110 116 H Fasting Glucose 121 H Calcium 8.1 L Total Bilirubin 0.6 AST 34 H ALT 21 Alkaline Phosphatase 59 Total Protein 5.5 L Albumin 2.7 L 08/11/23 07:37 WBC RBC Hgb Hct MCV MCH MCHC RDW Plt Count MPV Immature Gran % (Auto) Neut % (Auto) Lymph % (Auto) Trigg % (Auto) Eos % (Auto) Baso % (Auto) Lymph # (Auto) Trigg # (Auto) Eos # (Auto) Baso # (Auto) Abs Immat Gran (auto) Absolute Neuts (auto) Absolute Nucleated RBC Nucleated RBC % (auto) Sodium Potassium Chloride Carbon Dioxide Anion Gap BUN Creatinine Estim Creat Clear Calc Estimated GFR POC Glucose 105 Fasting Glucose Calcium Total Bilirubin AST ALT Alkaline Phosphatase Total Protein Albumin Preliminary micro results at discharge 08/06/23 19:02 Blood Culture - Preliminary Blood - Venous No growth after 48 hours. 08/06/23 19:02 Blood Culture - Preliminary Blood - Venous No growth after 48 hours. Discharge Plan Discharge Anticipated Discharge Date/Time: 08/11/23 11:18 Patient Disposition: Home Health Service Discharge Diagnosis: E coli UTI Referrals: Tana Ortega MD [Physician] - 1 Week Discharge Medications: Continued atorvastatin 40 mg tablet 40 mg PO DAILY clopidogrel 75 mg tablet 75 mg PO DAILY metformin 1,000 mg tablet 1,000 mg PO Q12H nitrofurantoin monohyd/m-cryst 100 mg capsule 1 cap PO BID Januvia 100 mg tablet 100 mg PO DAILY Discharge Orders: Discharge Order (Routine); Ordered 08/11/23 Ordered By: Clayton Doran Diet: Advance to usual diet Activity on Discharge: As tolerated Stand Alone Forms: Patient Portal Discharge page Care Plan Goals: Resume all medicines as taken before the hospital Health Concerns: Ceftin 250 mg twice daily has been added to your regimen. He will take this twice daily for 1 week Plan of Treatment: Follow-up with Dr. Guardado in 2 weeks Assessment: See discharge summary
--- NOTE | 2023-08-11 11:32 | W.MHC.F2F ---
Service Date Service Date: 08/11/23 Encounter Date of encounter: 08/11/23 Encounter: Acute hospitalization Reasons for Services Signs and symptoms assessed: Cognitive status and dysuric symptoms Homebound: Leaving the home is medically contraindicated at this time without the asist of a device and/or another person due th the listed conditions above and below. Reason homebound: unsteady gait / fall risk, poor balance / fall risk and unable to drive Certification: Based on the above findings, I certify that this patient is confined to the home and needs intermittent long-term care, physical therapy and/or speech therapy, or continues to need occupational therapy. The patient is under my care, and I have initiated the establishment of the plan of care. The patient will be followed by a physician who will periodically review the plan of care. Time Spent With Patient Time: Total time managing care of this patient today ____ minutes.
[2023-08-11 11:33] LABS: Glucose, Whole Blood 139 mg/dL (60-115)
--- NOTE | 2023-08-11 11:43 | MHC.CM.PN ---
PT WILL DC HOME TODAY WITH HOME HEALTH SERVICES ORDERED REFERRAL BROADCASTED TO [facility] CONTRACTED WITH [facility] AWAITING RESPONSES
[2023-08-11] MEDS: iohexoL 350 MG/ML 100 ML INFUS..BTL IV (14:45)
--- NOTE | 2023-08-11 14:51 | MHC.CM.PN ---
Addendum entered by Dottie Geiger 08/11/23 14:53: SHAHLA: [phone] Original Note: CM MET WITH PT AND SON, SHAHLA, PER HIS REQUEST HE REPORTS THE PT LIVES AT HOME WITH HER AND ANOTHER SON HE SAYS THE PT DOES ALL THE CARE FOR THE OTHER TWO INCLUDING WALKING TWO FLIGHTS TO DO THEIR LAUNDRY HE REPORTS THEY ALSO LIVE IN THE [address]LO[address] AND HE IS WORRIED SHE WILL NOT BE ABLE TO DO THIS MUCH LONGER HE REPORTS HE HAS ASKED HIS PARENTS TO MOVE INTO HIS HOME BUT THEY REFUSE PER DISCUSSION, HE WAS PROVIDED A LIST OF [facility] AND MH RECIPIENTS A REFERRALS WAS ALSO MADE TO [facility] [place] A [place] [facility]
[2023-08-11 16:00] VITALS: BP 142/65; PULSE 74; RESP 18; TEMP 36.4; O2SAT 97
[2023-08-11 17:12] LABS: Glucose, Whole Blood 155 mg/dL (60-115)
[2023-08-11] MEDS: Insulin Lispro 100 UNIT/ML 3 ML VIAL SUBCUT (17:42)
[2023-08-11] MEDS: cefTRIAXone sodium 1 GM in 0.9 % Sodium Chloride 50 ML IV (19:23)
[2023-08-11 20:00] VITALS: BP 128/60; PULSE 73; RESP 18; TEMP 37; O2SAT 98
[2023-08-11 20:34] LABS: Glucose, Whole Blood 105 mg/dL (60-115)
[2023-08-12 04:00] VITALS: BP 142/63; PULSE 71; RESP 16; TEMP 36.3; O2SAT 96
[2023-08-12 06:05] LABS: MANUAL DIFF FLAG NO
[2023-08-12 06:25] LABS: Alanine Aminotransferase 20 U/L (0-31); Albumin Level 2.7 g/dL (3.5-5.0); Alkaline Phosphatase 62 U/L (39-117); Anion Gap 12 (12-20); Aspartate Amino Transferase 26 U/L (5-31); Basophils Absolute Auto 0.1 X10*3/uL (0.0-0.2); Basophils Percent Auto 0.5 % (0-2); Bilirubin Total 0.4 mg/dL (0.0-1.0); Blood Urea Nitrogen 17 mg/dL (9-16); Calcium 8.2 mg/dL (8.4-10.2); Carbon Dioxide 20 mmol/L (22-29); Chloride 108 mmol/L (96-108); Creatinine Clr Calc Pharmacy 40.7; Eosinophils Absolute Auto 0.1 X10*3/uL (0.0-0.4); Eosinophils Percent Auto 0.9 % (0-4); Estimated Glomerular Filt Rate 60; Glucose Fasting 147 mg/dL (60-99); Hematocrit 24.4 % (37.0-47.0); Hemoglobin 7.7 g/dl (12.0-16.0); Imm Gran Abs Auto 0.09 X10*3/uL (0.00-0.03); Imm Gran Pct Auto 0.7 % (0.0-0.4); Lymphocytes Absolute Auto 1.7 X10*3/uL (1.2-4.9); Lymphocytes Percent Auto 13.8 % (20-40); Mean Corpuscular HGB Conc 31.6 g/dl (31.0-35.0); Mean Corpuscular Hemoglobin 29.1 pg (27.0-33.0); Mean Corpuscular Volume 92.1 fL (80.0-98.0); Mean Platelet Volume 10.7 fL (9.4-12.3); Monocytes Absolute Auto 1.3 X10*3/uL (0.1-1.2); Monocytes Percent Auto 9.9 % (2-11); Neutrophils Absolute Auto 9.3 x10*3/uL (2.0-8.3); Neutrophils Percent Auto 74.2 % (45-73); Platelet Count 422 X10*3/uL (160-400); Potassium 3.7 mmol/L (3.3-5.1); Red Blood Count 2.65 X10*6/uL (4.20-5.50); Red Cell Distribution Width 19.4 % (11.0-16.0); Sodium 136 mmol/L (135-145); Total Protein 5.5 g/dL (6.5-8.0); White Blood Count 12.6 X10*3/uL (4.8-10.8)
[2023-08-12 07:13] VITALS: BP 133/61; PULSE 72; RESP 16; TEMP 36.9; O2SAT 97
[2023-08-12 07:29] LABS: Glucose, Whole Blood 142 mg/dL (60-115)
[2023-08-12] MEDS: 0.9 % Sodium Chloride Flush 3 ML SYRINGE IVFLUSH ×3 (08:48→21:30)
[2023-08-12] MEDS: Atorvastatin Calcium 40 MG TABLET PO (08:48)
[2023-08-12] MEDS: SITagliptin Phosphate 100 MG TABLET PO (08:48)
[2023-08-12] MEDS: metFORMIN HCl 1,000 MG TABLET 1000 MG PO ×2 (08:48→18:02)
[2023-08-12 11:20] LABS: Glucose, Whole Blood 189 mg/dL (60-115)
[2023-08-12] MEDS: Insulin Lispro 100 UNIT/ML 3 ML VIAL SUBCUT ×2 (12:05→21:30)
--- NOTE | 2023-08-12 12:33 | HO.PM.IMPN ---
Subjective Subjective Date of Service: 08/12/23 Interval History: Remains confused; CT scan without changes. No acute issues overnight Review of Systems Denies chest pain Denies shortness of breath Denies nausea vomiting diarrhea Denies fever chills Physical Exam Vital Signs: Vital Signs: Last Vital Signs Temp 98.4 F 08/12/23 07:13 Pulse 72 08/12/23 07:13 Resp 16 08/12/23 07:13 BP 133/61 08/12/23 07:13 Pulse Ox 97 08/12/23 07:13 O2 Del Method Room Air 08/12/23 07:13 BMI result Body Mass Index 19.7 Const: Other: Awake alert no acute distress Resp: Other: Clear to auscultation bilaterally no rales rhonchi or wheezes Cardio: Other: No S4; positive S1-S2; no S3 murmurs rubs or gallops GI: Other: Soft nontender nondistended normoactive bowel sounds Extrem: Other: No edema bilaterally Objective Data Active Medications Acetaminophen (Acetaminophen 325 Mg Tablet) 650 mg PO Q6H PRN PRN Reason: Pain, Mild (Pain Scale 1-3) Last Admin: 08/08/23 08:38 Dose: 650 mg Documented By: ALISON Atorvastatin Calcium (Atorvastatin Calcium 40 Mg Tablet) 40 mg PO DAILY [facility] Last Admin: 08/12/23 08:48 Dose: 40 mg Documented By: KALYAN Clopidogrel Bisulfate (Clopidogrel Bisulfate 75 Mg Tablet) 75 mg PO DAILY [facility] Last Admin: 08/07/23 10:07 Dose: Not Given Documented By: ALISON Non-Admin Reason: hold per Dextrose (Dextrose 50 % 25 Gm/50 Ml Syringe) 25 gm IVPUSH Q15M PRN; Protocol PRN Reason: per Hypoglycemia Standing Ord. Enoxaparin Sodium (Enoxaparin Sodium 40 Mg/0.4 Ml Syringe) 40 mg SUBCUT Q24H [facility] Last Admin: 08/07/23 19:11 Dose: 40 mg Documented By: DAYTON Glucose (Glucose Gel 15 Gm Gel..Gram.) 15 gm PO Q15M PRN; Protocol PRN Reason: per Hypoglycemia Standing Ord. Ceftriaxone Sodium 1 gm/ (Sodium Chloride) 50 mls @ 100 mls/hr IV Q24H [facility] Last Infusion: 08/11/23 19:57 Dose: Infused Documented By: DAYTON Insulin Human Lispro (Insulin Lispro 100 Unit/Ml 3 Ml Vial) 0 unit SUBCUT QIDACHS [facility]; Protocol Last Admin: 08/12/23 12:05 Dose: 2 unit Documented By: KALYAN Melatonin (Melatonin 3 Mg Tablet) 6 mg PO BEDTIME PRN PRN Reason: Insomnia Metformin HCl (Metformin Hcl 1,000 Mg Tablet) 1,000 mg PO BIDWM [facility] Last Admin: 08/12/23 08:48 Dose: 1,000 mg Documented By: KALYAN Ondansetron HCl (Ondansetron Hcl 4 Mg/2 Ml Vial) 4 mg IVPUSH Q8H PRN PRN Reason: Nausea and Vomiting Sitagliptin Phosphate (Sitagliptin Phosphate 100 Mg Tablet) 100 mg PO DAILY [facility] Last Admin: 08/12/23 08:48 Dose: 100 mg Documented By: KALYAN Sodium Chloride (0.9 % Sodium Chloride Flush 3 Ml Syringe) 3 ml IVFLUSH QSHIFT [facility] Last Admin: 08/12/23 08:48 Dose: 3 ml Documented By: KALYAN Labs 08/12/23 05:31 08/12/23 05:31 Labs: Laboratory Results - last 24 hr 08/11/23 08/11/23 08/12/23 17:09 20:25 05:31 MCV 92.1 MCH 29.1 MCHC 31.6 RDW 19.4 H Plt Count 422 H MPV 10.7 Immature Gran % (Auto) 0.7 H Neut % (Auto) 74.2 H Lymph % (Auto) 13.8 L [place] % (Auto) 9.9 Eos % (Auto) 0.9 Baso % (Auto) 0.5 Lymph # (Auto) 1.7 [place] # (Auto) 1.3 H Eos # (Auto) 0.1 Baso # (Auto) 0.1 Abs Immat Gran (auto) 0.09 H Absolute Neuts (auto) 9.3 H Absolute Nucleated RBC 0.000 Nucleated RBC % (auto) 0.0 Anion Gap 12 Estim Creat Clear Calc 40.7 Estimated GFR 60 POC Glucose 155 H 105 Fasting Glucose 147 H Calcium 8.2 L Total Bilirubin 0.4 AST 26 ALT 20 Alkaline Phosphatase 62 Total Protein 5.5 L Albumin 2.7 L 08/12/23 08/12/23 07:16 11:16 MCV MCH MCHC RDW Plt Count MPV Immature Gran % (Auto) Neut % (Auto) Lymph % (Auto) [place] % (Auto) Eos % (Auto) Baso % (Auto) Lymph # (Auto) [place] # (Auto) Eos # (Auto) Baso # (Auto) Abs Immat Gran (auto) Absolute Neuts (auto) Absolute Nucleated RBC Nucleated RBC % (auto) Anion Gap Estim Creat Clear Calc Estimated GFR POC Glucose 142 H 189 H Fasting Glucose Calcium Total Bilirubin AST ALT Alkaline Phosphatase Total Protein Albumin Microbiology Microbiology Results: Microbiology 08/06/23 19:02 Blood Culture - Final Blood - Venous No growth after 5 days. 08/06/23 19:02 Blood Culture - Final Blood - Venous No growth after 5 days. Assessment and Plan (1) Acute UTI: Status: Acute (2) Bladder outlet obstruction: Status: Acute (3) Bladder stones: Status: Acute Plan This is a 83-year-old female with pertinent history of xmu-jyuctdx-shqtepocv diabetes mellitus, essential hypertension, mixed hyperlipidemia who presents to the emergency department after a fall; presenting CT demonstrated hydronephrosis and urine with active sediment. Started on ceftriaxone ; urine culture E coli sensitive to ceftriaxone 1.Acute UTI.. E coli sensitive to ceftriaxone -urine culture with 50-100 K mixed bettina; given persistent elevated white count and clinical presentation will continue ceftriaxone and re-culture urine -follow daily CBCs -ceftriaxone(3).. Switch to Ceftin upon DC -discussed with urology; Grace replaced and will follow-up in 2 weeks for removal bladder stone. Call placed to son Alvaro who can care for mother and will pick her up after 10 tomorrow. All parties in agreement 2.Symptomatic anemia -fair response to 1 unit packed cells; hemoglobin stable -Stool occult negative, has mild Urine blood -hold Plavix. Can be reassessed by PCP 3.Bilateral hydronephrosis with bilateral hydroureter -as per 1. Grace reinserted to prevent outlet obstruction. Urology to follow up 2 weeks with stone removal 4.Apr-hgfuerw-qpkeevngg diabetes mellitus -acceptable control on current therapies -lispro correctional scale -adjust as indicated SCDs Full code Requires ongoing hospitalization for IV antibiotics to treat with likely acute UTI in backdrop of persistent leukocytosis. Quality Stroke Does the patient have a stroke diagnosis?: No VTE Prior VTE?: No VTE Risk Level:: Medical - moderate - high VTE Device Contraindication: Treatment Not Indicated VTE Drug Contraindication: N/A - Med Ordered
--- NOTE | 2023-08-12 13:40 | MHC.CM.PN ---
dc plan ,pt will be going home with son and vna son to transport imm updated
[2023-08-12 15:40] VITALS: BP 122/60; PULSE 78; RESP 16; TEMP 37; O2SAT 95
[2023-08-12 16:30] LABS: Glucose, Whole Blood 106 mg/dL (60-115)
[2023-08-12] MEDS: cefTRIAXone sodium 1 GM in 0.9 % Sodium Chloride 50 ML IV (18:02)
[2023-08-12 19:35] VITALS: BP 137/63; PULSE 78; RESP 18; TEMP 36.6; O2SAT 97
[2023-08-12 20:37] LABS: Glucose, Whole Blood 164 mg/dL (60-115)
[2023-08-13 03:22] VITALS: BP 128/59; PULSE 77; RESP 17; TEMP 36.6; O2SAT 95
[2023-08-13 07:16] LABS: Glucose, Whole Blood 118 mg/dL (60-115)
[2023-08-13 08:00] VITALS: BP 137/63; PULSE 75; RESP 18; TEMP 36.2; O2SAT 95
[2023-08-13] MEDS: 0.9 % Sodium Chloride Flush 3 ML SYRINGE IVFLUSH (09:34)
[2023-08-13] MEDS: metFORMIN HCl 1,000 MG TABLET 1000 MG PO (09:35)
[2023-08-13] MEDS: Acetaminophen 325 MG TABLET 650 MG PO (09:35)
[2023-08-13] MEDS: SITagliptin Phosphate 100 MG TABLET PO (09:35)
[2023-08-13] MEDS: Atorvastatin Calcium 40 MG TABLET PO (09:36)
--- NOTE | 2023-08-13 11:06 | PM.DS ---
DS: Providers Provider Date of Service: 08/13/23 Date of admission: 08/06/23 19:44 Date of discharge: 09/12/23 Primary care physician: Tana Ortega MD Consults: 08/06/23 19:59 Consult to Urology Routine Consulting Provider: Jacky Kurtz Reason for consultation: bilateral hydronephrosis 08/08/23 07:09 Consult to Gastroenterology Routine Consulting Provider: Jayson Gonzales Reason for consultation: CLARK, negative occult stool Attending physician on discharge: Parish Oliva Discharging clinician: Parish Oliva DS: Diagnosis Discharge Diagnosis (1) Acute UTI: Status: Acute (2) Bladder outlet obstruction: Status: Acute (3) Bladder stones: Status: Acute DS: Summary Hospital Course Hospital Course: 83-year-old female with pertinent history of sqq-mstyvkx-utvdgnnur diabetes mellitus, essential hypertension, mixed hyperlipidemia who presents to the emergency department after a fall. Patient states she missed a step and fell down from the stairs. Did hit her head and has pain of the right hip after the fall. Did not lose consciousness prior to the fall. No chest pain or palpitations prior to the fall. No dizziness, lightheadedness or loss of consciousness. Has associated generalized weakness. Patient also complains of difficulty with urination, unclear duration. No dysuria. No fever, chills, chest discomfort, nausea, vomiting, palpitations, shortness of breath, abdominal pain, changes in bowel habits In the emergency department, imaging with bladder wall thickening and bilateral hydronephrosis with hydroureter. Urine concerning for UTI. Hospital Course: Admitted to Urinary retention: found to have on imaging with bladder wall thickening and bilateral hydronephrosis with hydroureter. Urine concerning for UTI. started on antibiotics, urine cultures sent,Grace was placed with good output. She was empirically placed on ceftriaxone for active urinary sediment. Ultimately urine grew E coli sensitive to ceftriaxone. She continued to improve over the course of the next 72 hours. At this point in time she is medically acceptable for discharge to a course of oral Ceftin and can follow-up with Urology as an outpatient. Patient has normocytic anemia: Stool occult blood was negative, iron studies: Iron and iron saturation low, TIBC low, unsaturated iron binding is normal: patient was seen by GI and offered colonoscopy patient currently declines it discussed with the GI patient is to follow up outpatient with GI for further workup. monitor CBC outpatient. use of Plavix we will leave up to the outpatient provider discussion- told the patient and family continue Plavix and monitor CBC with PCP outpatient. H&H currently running between 7.7/24.4 range . plan: Ceftin 250 mg twice daily has been added to your regimen. He will take this twice daily for 1 week symptomatic anemia: added ppi/iron. Plavix use Can be reassessed by PCP offered EGD and colonoscopy for further investigation but she declined at this time. above management discussed with the patient and her family in detail length they understand and in agreement with above plan, time spent 50 minute. Time Attestation Discharge coordination time: Greater than 30 minutes Quality: Safe Use of Opioids Does Pt have an Active Cancer Diagnosis on the Problem List?: No Quality: Stroke Does the patient have a stroke diagnosis?: No Physical Exam Vital Signs: Vital Signs: Last Vital Signs Temp 97.2 F 08/13/23 08:00 Pulse 75 08/13/23 08:00 Resp 18 08/13/23 08:00 BP 137/63 08/13/23 08:00 Pulse Ox 95 08/13/23 08:00 O2 Del Method Room Air 08/13/23 08:00 BMI result Body Mass Index 19.7 Appearance: Awake alert near her baseline Eyes: Pupils equal, round and reactive to light.? Sclera nonicteric.? ENT: Pharynx normal.? Moist mucous membranes. cvs: rrr, [id number] , no murmur res: clear to auscultation ,no rhonchii or wheezing abd: no rebound or guarding ,nt, bs present. ext pulses present , no cyanosis . neuro: nonfocal. DS: Data Data Completed and Pending Labs on day of discharge: Laboratory Results - last 24 hr 08/12/23 08/12/23 08/12/23 11:16 16:16 20:34 POC Glucose 189 H 106 164 H 08/13/23 07:04 POC Glucose 118 H Imaging Chest x-ray: Radiologist's impression: ITS Impressions Cervical Spine CT 08/06/23 18:35 IMPRESSION: Mild cerebral volume loss and mild bilateral periventricular and central white matter diminished attenuation which is nonspecific but likely represent microvascular disease. No acute intracranial abnormality. Mild cervical disc degenerative change. No fracture or malalignment. Head CT 08/06/23 18:35 IMPRESSION: Mild cerebral volume loss and mild bilateral periventricular and central white matter diminished attenuation which is nonspecific but likely represent microvascular disease. No acute intracranial abnormality. Mild cervical disc degenerative change. No fracture or malalignment. Abdomen/Pelvis CT 08/06/23 18:37 IMPRESSION: 1. I do not appreciate any acute bony abnormality. Chronic appearing changes as described above. 2. Markedly abnormal bladder with concentric bladder wall thickening and mucosal enhancement concerning for underlying infectious etiology. There is bilateral hydronephrosis and hydroureter with some heterogeneous attenuation to the left renal parenchyma. Pyelonephritis would be difficult to exclude in the acute setting. Chest CT 08/06/23 18:37 IMPRESSION: 1. I do not appreciate any acute bony abnormality. Chronic appearing changes as described above. 2. Markedly abnormal bladder with concentric bladder wall thickening and mucosal enhancement concerning for underlying infectious etiology. There is bilateral hydronephrosis and hydroureter with some heterogeneous attenuation to the left renal parenchyma. Pyelonephritis would be difficult to exclude in the acute setting. Abdomen/Pelvis CT 08/11/23 14:43 IMPRESSION: 1. Mild bilateral hydroureteronephrosis with dilated ureter extending into the bladder. There is a large bladder calculus measuring 5 cm. There is mild bladder wall thickening. 2. Colonic diverticulosis without diverticulitis. 3. Small left pleural effusion with bibasilar dependent atelectasis. 4. Left adrenal gland enlargement. 5. Degenerative disc changes with vacuum disc phenomena at every disc level. Grade 1 anterolisthesis L4 over L5. 6. There is no major change compared to previous CT abdomen exam 08/06/2023 Fleischner guidelines were followed. Discharge Plan Discharge Anticipated Discharge Date/Time: 08/11/23 11:18 Patient Disposition: Home Health Service Discharge Diagnosis: E coli UTI Referrals: [facility] [Other] - 1 Week [facility] [Other] - 1 Week Tana Ortega MD [Primary Care Provider] - 1 Week Jacky Kurtz MD [Physician] - 1 Week Jayson Gonzales MD [Physician] - 1 Week Discharge Medications: New cefuroxime axetil 250 mg tablet 250 mg PO BID 7 Days Qty: 14 0RF famotidine 20 mg tablet 20 mg PO BEDTIME Qty: 30 0RF ferrous sulfate [Iron (ferrous sulfate)] 325 mg (65 mg iron) tablet 325 mg PO BID Qty: 60 0RF Continued atorvastatin 40 mg tablet 40 mg PO DAILY clopidogrel 75 mg tablet 75 mg PO DAILY Hold Instructions: Resume on 08/19/23. need to repeat cbc and see pcp before starting. metformin 1,000 mg tablet 1,000 mg PO Q12H nitrofurantoin monohyd/m-cryst 100 mg capsule 1 cap PO BID Januvia 100 mg tablet 100 mg PO DAILY Discharge Orders: Discharge Order (Routine); Ordered 08/13/23 Ordered By: Parish Oliva Diet: Advance to usual diet Activity on Discharge: As tolerated Stand Alone Forms: Patient Portal Discharge page Other Ambulatory Orders: Complete Blood Count no Diff (Routine) Timeframe: 1 Week Facility: [facility] - Location: Laboratory Ordered By: Parish Oliva Care Plan Goals: Resume all medicines as taken before the hospital Health Concerns: Ceftin 250 mg twice daily has been added to your regimen. He will take this twice daily for 1 week symptomatic anemia: added ppi/iron. Plavix use Can be reassessed by PCP offered EGD and colonoscopy for further investigation but she declined at this time Plan of Treatment: Follow-up with Dr. Guardado in 2 weeks Assessment: See discharge summary Discharge Date/Time: 08/13/23 11:28
--- NOTE | 2023-08-13 12:09 | W.MHC.F2F ---
Service Date Service Date: 08/13/23 Encounter Date of encounter: 08/13/23 Encounter: anemia ,uti, hemtauria Bilateral hydronephrosis with bilateral hydroureter Reasons for Services Signs and symptoms assessed: Any worsening of urinary complaints fever, hematuria or any bleeding Reason for usp: medication management, medication treatment and teach disease management Reason for physical therapy: home safety and mobility, therapeutic exercises, restore joint function, gait/transfer training, assess need for DME, ADL training, energy conservation and other MD Overseeing Care: Tana Ortega Homebound: Leaving the home is medically contraindicated at this time without the asist of a device and/or another person due th the listed conditions above and below. Reason homebound: weakness related to hospital stay Homebound supporting statement: Patient is generalized weak and multiple comorbidities including UTI, anemia, hematuria-need help for PT, lab draws, appointments. Certification: Based on the above findings, I certify that this patient is confined to the home and needs intermittent usp care, physical therapy and/or speech therapy, or continues to need occupational therapy. The patient is under my care, and I have initiated the establishment of the plan of care. The patient will be followed by a physician who will periodically review the plan of care. Time Spent With Patient Time: Total time managing care of this patient today ____ minutes.
--- NOTE | 2023-08-16 08:06 | P.CDIM_ITS ---
PROVIDER RESPONSE TEXT: To clarify, the appropriate diagnosis supported by the clinical indicators: Underweight QUERY TEXT: PHYSICIAN'S DOCUMENTATION REQUEST Date of Query: 08/07/2023 01:45 PM EST Patient Name: Estella Nicole Admit Date: 08/07/2023 Dear Nahun Escobar, A review of the medical record indicates additional documentation may be needed. Please review below and update the documentation accordingly. Clinical Indicators: Height: ( ) 5'5 Weight: ( ) 53.6 kg BMI: ( ) 19.7 Other Clinical Notes Supporting Significance of the BMI: If possible, please provide an associated diagnosis related to the abnormal BMI, such as: Underweight Weight loss Cachexia Anorexia BMI is not significant Other (explain) Clinically unable to determine (explain) Thank you, Tabby Agudelo RN Use of terms such as suspected, likely, concern for, or probable (associated with a specific diagnosi s that is being evaluated, monitored, or treated as if it exists) are acceptable and can be coded in the inpatient se tting, when documented at the time of discharge. Please use your independent medical judgment in providing your response. THIS QUERY IS PART OF THE PERMANENT MEDICAL RECORD
== END 2023-08-13 11:28 | disposition home health service (06) | DRG 690 ==
LOC: HO.ED 18:33 → HO.EDOVER 19:49 → HO.S3 20:08
PROVIDERS: Hospitalist; Physician Assistant; Student in an Organized Health Care Education/Training Program; Admitting Provider Student in an Organized Health Care Education/Training Program; Emergency Provider Internal Medicine; PCP Internal Medicine; Visit Provider Internal Medicine
DX: N13.6 Pyonephrosis (principal); Z68.1 Body mass index [BMI] 19.9 or less, adult; E78.2 Mixed hyperlipidemia; E11.49 Type 2 diabetes mellitus with other diabetic neurological complication; B96.20 Unspecified Escherichia coli [E. coli] as the cause of diseases classified elsewhere; D50.9 Iron deficiency anemia, unspecified; R63.6 Underweight; N21.0 Calculus in bladder; N31.8 Other neuromuscular dysfunction of bladder; I10 Essential (primary) hypertension; Z20.822 Contact with and (suspected) exposure to COVID-19; Z79.02 Long term (current) use of antithrombotics/antiplatelets; Z79.84 Long term (current) use of oral hypoglycemic drugs; Z79.899 Other long term (current) drug therapy
CPT/HCPCS: 36415; 70450; 71260; 72125; 74177; 80048; 80053; 81001; 82272; 82550; 82947; 83540; 83605; 83690; 83735; 84484; 85025; 85027; 86850; 86900; 86901; 86923; 87040; 87086; 87088; 87186; 87635; 93005; 97161; 97162; 99285; C1758; J0696; J1650; J1756; P9016; Q9967

== ENCOUNTER → 2023-08-06 19:44 | Outpatient (BNV) | payer MEDICARE, SELFPAY | PROVIDERS: Admitting Provider Student in an Organized Health Care Education/Training Program; Emergency Provider Internal Medicine; Visit Provider Urology | DX: N13.30 Unspecified hydronephrosis (principal); N32.0 Bladder-neck obstruction; N21.0 Calculus in bladder; E11.49 Type 2 diabetes mellitus with other diabetic neurological complication | CPT/HCPCS: 99222 ==

== ENCOUNTER → 2023-08-06 19:44 | Outpatient (BNV) | payer MEDICARE, SELFPAY | PROVIDERS: Admitting Provider Student in an Organized Health Care Education/Training Program; Emergency Provider Internal Medicine; Visit Provider Internal Medicine Gastroenterology | DX: D64.9 Anemia, unspecified (principal) | CPT/HCPCS: 99223 ==

== ENCOUNTER → 2023-08-06 19:44 | Outpatient (BNV) | payer MEDICARE, SELFPAY | PROVIDERS: Admitting Provider Student in an Organized Health Care Education/Training Program; Emergency Provider Internal Medicine; Visit Provider Student in an Organized Health Care Education/Training Program | DX: N39.0 Urinary tract infection, site not specified (principal); N32.0 Bladder-neck obstruction; N21.0 Calculus in bladder | CPT/HCPCS: 99222; 99233; 99239; G0180 ==

== ENCOUNTER 2023-08-20 12:30 | Outpatient (REF) | payer MEDICARE, SELFPAY ==
[2023-08-20 12:36] LABS: Hematocrit 27.9 % (37.0-47.0); Hemoglobin 8.8 g/dl (12.0-16.0); Mean Corpuscular HGB Conc 31.5 g/dl (31.0-35.0); Mean Corpuscular Volume 92.1 fL (80.0-98.0); Mean Platelet Volume 10.5 fL (9.4-12.3); Platelet Count 300 X10*3/uL (160-400); Red Blood Count 3.03 X10*6/uL (4.20-5.50); Red Cell Distribution Width 19.2 % (11.0-16.0); White Blood Count 6.7 X10*3/uL (4.8-10.8)
== END 2023-08-20 12:31 | disposition home or self-care (01) ==
LOC: HO.LNP 12:30
PROVIDERS: Internal Medicine; Visit Provider Internal Medicine
DX: D64.9 Anemia, unspecified (principal); N39.0 Urinary tract infection, site not specified
CPT/HCPCS: 85027

== ENCOUNTER 2023-09-02 08:20 | Day surgery (SDC) | payer MEDICARE, OTHER, SELFPAY ==
[2023-08-29 11:37] VITALS: BMI 19.7
--- NOTE | 2023-08-30 08:30 | P.CONAN_ITS ---
Documented by User: Maryam Roman NP 08/30/23 08:34 HPI - Anesthesia Eval Consult details Narrative: 83yo F for Cystoscopy Bladder Stone Removal,using holmium laser Higher than average surgical risk per PCP Plavix for PVD on hold [facility] Active Problems Active Problems: All Active Problems (Updated 08/29/23 @ 11:47 by Kecia Joseph RN) Mixed hyperlipidemia (Acute) Past Medical History Medical History Osteoporosis History of urinary self-catheterization Neurogenic bladder PVD (peripheral vascular disease) HTN (hypertension) Grace catheter in place Diabetic neuropathy associated with diabetes mellitus due to underlying condition Bladder stones Mixed hyperlipidemia Essential hypertension Non-insulin dependent type 2 diabetes mellitus Lower back pain Physical deconditioning Fall Surgical History Surgical History History of surgery on left wrist Hx of colonoscopy History of pubovaginal sling Social History Social History Household Members: Family Housing: House Are you a primary foster care case manager to a significant other at home: No Do you presently have visiting nurse or other home services: Yes (VNA, PT) Patient Tobacco Use Status: Never used Tobacco Use of substances other than those prescribed or required for medical reasons: No Are you DNR?: No Advance Directives: No Advance Directives Information Provided: Yes Advance Directives on File: No Recently lost weight without trying: No Nutrition Risks: Surgical patient >75years service: No Meds Allergies Allergy/AdvReac Type Severity Reaction Status Date / Time No Known Allergies Allergy Verified 08/06/23 11:19 [No Known Allergies*] Home Medications Medication Instructions Recorded Confirmed Last Taken Type atorvastatin 40 mg tablet 40 mg PO DAILY 08/06/23 08/29/23 Unknown History clopidogrel 75 mg tablet 75 mg PO DAILY 08/06/23 08/29/23 08/23/23 History metformin 1,000 mg tablet 1,000 mg PO DAILY 08/06/23 08/29/23 Unknown History sitagliptin phosphate 100 mg 100 mg PO DAILY 08/06/23 08/29/23 Unknown History tablet (Januvia) aspirin 81 mg chewable tablet 81 mg PO DAILY 08/29/23 08/29/23 08/23/23 History multivitamin 1 tab PO DAILY 08/29/23 08/29/23 08/29/23 History vitamin E 08/29/23 08/29/23 History Exam Height,Weight and Vital Signs: Height 5 ft 5 in Weight 53.6 kg Pertinent Lab Results Pertinent Lab Results: Laboratory Tests 08/12/23 08/20/23 05:31 11:20 WBC 6.7 Hgb 8.8 L Hct 27.9 L Plt Count 300 D Sodium 136 Potassium 3.7 Chloride 108 Carbon Dioxide 20 L BUN 17 H Creatinine 0.90 Narrative Narrative: EKG 07/2023 Vent. Rate : 070 BPM Atrial Rate : 070 BPM P-R Int : 156 ms QRS Dur : 138 ms QT Int : 474 ms P-R-T Axes : 051 081 001 degrees QTc Int : 511 ms Normal sinus rhythm Right bundle branch block Abnormal ECG When compared with ECG of 27-NOV-2017 22:14, Minimal criteria for Inferior infarct are no longer Present Assessment and Plan Assessment Anesthesia Assessment: Chart Reviewed Documented by User: Lisa Limon MD 09/02/23 09:29 HPI - Anesthesia Eval Consult details Narrative: 83yo F for Cystoscopy Bladder Stone Removal,using holmium laser Higher than average surgical risk per PCP Plavix for PVD on hold , pt unable to answer simple questions, consent from son who is health care proxy [facility] Past Medical History Medical History Osteoporosis History of urinary self-catheterization Neurogenic bladder PVD (peripheral vascular disease) HTN (hypertension) Grace catheter in place Diabetic neuropathy associated with diabetes mellitus due to underlying condition Bladder stones Mixed hyperlipidemia Essential hypertension Non-insulin dependent type 2 diabetes mellitus Lower back pain Physical deconditioning Fall Family History Family history of problems with anesthesia: No Surgical History Surgical History History of surgery on left wrist Hx of colonoscopy History of pubovaginal sling History of Problems with Anesthesia: No Social History Social History Household Members: Family Housing: House Are you a primary foster care case manager to a significant other at home: No Do you presently have visiting nurse or other home services: Yes (VNA, PT) Patient Tobacco Use Status: Never used Tobacco Use of substances other than those prescribed or required for medical reasons: No Are you DNR?: No Advance Directives: No Advance Directives Information Provided: Yes Advance Directives on File: No Recently lost weight without trying: No Nutrition Risks: Surgical patient >75years service: No Meds Allergies Allergy/AdvReac Type Severity Reaction Status Date / Time No Known Allergies Allergy Verified 08/06/23 11:19 [No Known Allergies*] Home Medications Medication Instructions Recorded Confirmed Last Taken Type atorvastatin 40 mg tablet 40 mg PO DAILY 08/06/23 08/29/23 Unknown History clopidogrel 75 mg tablet 75 mg PO DAILY 08/06/23 08/29/23 08/23/23 History metformin 1,000 mg tablet 1,000 mg PO DAILY 08/06/23 08/29/23 Unknown History sitagliptin phosphate 100 mg 100 mg PO DAILY 08/06/23 08/29/23 Unknown History tablet (Januvia) aspirin 81 mg chewable tablet 81 mg PO DAILY 08/29/23 08/29/23 08/23/23 History multivitamin 1 tab PO DAILY 08/29/23 08/29/23 08/29/23 History vitamin E 08/29/23 08/29/23 History Exam Airway Mallampati Class: II TM Dist: >3cm Neck ROM: Full Denture: Upper and Lower Heart: rrr Lungs: cta Assessment and Plan Assessment Anesthesia Assessment: Anesthesia Plan Discussed Final Anesthetic Review Family History of Problems with Anesthesia: No History of Problems with Anesthesia: No NPO: Yes ASA Class: III Final Preanesthetic Review: No Changes in Pt Med Stat, Meds/Allgs Chart Reviewed, Consent Obtained/Reviewed and Anes Risks/Benef Reviewed Patient Risk: Intermediate Procedure Risk: Low Anesthetic Plan Anesthetic Plan: GA Disposition: Standard PACU
[2023-09-02 08:43] VITALS: BP 134/65; PULSE 76; RESP 18; TEMP 36.7; O2SAT 100
[2023-09-02] MEDS: Lactated Ringers 1,000 ML 100 ML IVCONT (08:49)
[2023-09-02 08:57] LABS: Glucose, Whole Blood 118 mg/dL (60-115)
--- NOTE | 2023-09-02 11:34 | MHC.SHP ---
Pre-Procedural Eval Section A Date of Service: 09/02/23 The patient is an INPATIENT: No Changes since office visit: No Cold of Flu in the past 2 weeks, No New Medical Problems, No Changes in Medication and No Patient answered all questions The History & Physical has been completed within 30 days and I have reviewed it.: Yes Section B Chief Complaint: Calculus in bladder Allergies: Allergies Allergy/AdvReac Type Severity Reaction Status Date / Time No Known Allergies Allergy Verified 08/06/23 11:19 [No Known Allergies*] Plan Diagnosis/Plan: Unchanged (bladder stone laser) I have reviewed the history and physical and performed a pertinent physical examination on my patient. No changes have occurred unless specified. Time Spent With Patient Time: Total time managing care of this patient today ____ minutes.
--- NOTE | 2023-09-02 11:53 | PC.NURSE ---
patient was alert to person and place only. poor historian regarding her past/current medical history. son, Alvaro, gave consents via telephone.
[2023-09-02 15:15] VITALS: BP 127/57; PULSE 83; RESP 16; TEMP 36.4; O2SAT 98
[2023-09-02 15:20] VITALS: BP 113/56; PULSE 79; RESP 16; O2SAT 99
[2023-09-02 15:30] VITALS: BP 115/58; BP 125/59; PULSE 81; PULSE 82; RESP 16; TEMP 36.2; O2SAT 98
[2023-09-02 15:45] VITALS: BP 121/60; PULSE 81; RESP 16; TEMP 36.3; O2SAT 99
[2023-09-02 15:58] LABS: Hematocrit 32.4 % (37.0-47.0); Hemoglobin 10.4 g/dl (12.0-16.0); Mean Corpuscular HGB Conc 32.1 g/dl (31.0-35.0); Mean Corpuscular Hemoglobin 29.9 pg (27.0-33.0); Mean Corpuscular Volume 93.1 fL (80.0-98.0); Mean Platelet Volume 10.3 fL (9.4-12.3); Platelet Count 231 X10*3/uL (160-400); Red Blood Count 3.48 X10*6/uL (4.20-5.50); Red Cell Distribution Width 17.8 % (11.0-16.0); White Blood Count 8.6 X10*3/uL (4.8-10.8)
[2023-09-02 16:00] VITALS: BP 128/60; PULSE 81; RESP 16; TEMP 36.1; O2SAT 99
[2023-09-02 16:02] LABS: Anion Gap 14 (12-20); Blood Urea Nitrogen 16 mg/dL (9-16); Calcium 8.5 mg/dL (8.4-10.2); Carbon Dioxide 22 mmol/L (22-29); Chloride 107 mmol/L (96-108); Creatinine Clr Calc Pharmacy 48.3; Estimated Glomerular Filt Rate > 60; Glucose Random 84 mg/dL (60-115); Potassium 3.7 mmol/L (3.3-5.1); Sodium 139 mmol/L (135-145)
--- NOTE | 2023-09-02 18:16 | P.OP_ITS ---
Operative Note Operative Note Date of Service: 09/02/23 Narrative: PreOperative Diagnosis: Large (6 cm) bladder stone Post Operative Diagnosis: As above Procedure: Laser holmium bladder stone modified 22 Surgeon: Dr Kofi Guardado Anesthesia: Spinal Indications for procedure: 83-year-old female. It nicely presented with retention and UTI. Found to have very large bladder stone on imaging. Recommendation for laser procedure given other comorbidities. Procedure: After informed consent was verified the patient was brought to the operating r oom and placed in a supine position. Anesthesia was administered per protocol. The patient was prepped and draped in a sterile fashion. Safety pause time-out was performed. Antibiotics being given. ClearPetra access sheath 18 [place]ican placed. Twelve [place]ican handpiece placed. 900 nm Holmium laser fiber placed. Using dusting settings with a total power proximally 25 w stone was initially addressed. Approximately 60 minutes was spent which is longer than typical on stone dusting and breakage of stones services. We switched to a continuous resectoscope 28 [place]ican with laser bridge. He using the 900 holmium 5 by this was placed at 4 joules with 20 hertz. The total power approximately 80 w. We then spent another 60 minutes breaking up the stone into small pieces. This was all flushed. There was continuous suction. Anesthesia requested case completion after approximately 2 hours regarding blood pressure stability concerns.. There is approximate 10% residual of the stone fragments left. Bladder irrigated Brewer catheter placed Pathology: stones Drains: brewer catheter
== END 2023-09-02 16:20 | disposition home or self-care (01) ==
PROVIDERS: Anesthesiology; PCP Internal Medicine; Visit Provider Urology
PROC: 0TCB8ZZ Extirpation of Matter from Bladder, Via Natural or Artificial Opening Endoscopic (ICD-10-PCS; CPT 52352; principal; 2023-09-02 10:30)
DX: N21.0 Calculus in bladder (principal); E11.40 Type 2 diabetes mellitus with diabetic neuropathy, unspecified; N13.39 Other hydronephrosis; N31.9 Neuromuscular dysfunction of bladder, unspecified; I10 Essential (primary) hypertension; N32.0 Bladder-neck obstruction; E78.2 Mixed hyperlipidemia; Z79.84 Long term (current) use of oral hypoglycemic drugs; Z79.899 Other long term (current) drug therapy
CPT/HCPCS: 52318; 36415; 80048; 82947; 85027; 88300; C1758; J0131; J1956; J2704; J3010

== ENCOUNTER → 2023-09-02 08:20 | Outpatient (BNV) | payer MEDICARE, SELFPAY | PROVIDERS: PCP Internal Medicine; Visit Provider Urology | DX: N21.0 Calculus in bladder (principal) | CPT/HCPCS: 52317 ==

== ENCOUNTER → 2023-09-05 09:31 | Outpatient (BNVA) | payer MEDICARE, SELFPAY | PROVIDERS: PCP Internal Medicine; Visit Provider Urology ==

== ENCOUNTER 2023-10-01 12:48 | Outpatient (REF) | payer MEDICARE, SELFPAY ==
[2023-10-01 14:52] LABS: Estimated Average Glucose 114 mg/dL; Hemoglobin A1c % 5.6 % (<6.0)
[2023-10-01 15:03] LABS: Alanine Aminotransferase 22 U/L (0-31); Albumin Level 3.5 g/dL (3.5-5.0); Alkaline Phosphatase 60 U/L (39-117); Anion Gap 16 (12-20); Aspartate Amino Transferase 23 U/L (5-31); Bilirubin Total 0.2 mg/dL (0.0-1.0); Blood Urea Nitrogen 16 mg/dL (9-16); Calcium 9.7 mg/dL (8.4-10.2); Carbon Dioxide 22 mmol/L (22-29); Chloride 106 mmol/L (96-108); Estimated Glomerular Filt Rate 60; Glucose Random 145 mg/dL (60-115); Potassium 4.5 mmol/L (3.3-5.1); Sodium 139 mmol/L (135-145); Total Protein 6.6 g/dL (6.5-8.0)
== END 2023-10-01 12:49 | disposition home or self-care (01) ==
LOC: HO.HVNA 12:48
PROVIDERS: Visit Provider Internal Medicine
DX: D50.8 Other iron deficiency anemias (principal); D51.9 Vitamin B12 deficiency anemia, unspecified; E11.9 Type 2 diabetes mellitus without complications
CPT/HCPCS: 36415; 80053; 83036

== ENCOUNTER 2023-12-10 11:24 | Outpatient (REF) | payer MEDICARE, SELFPAY ==
--- NOTE | ~2023-12-10 | XR_ITS ---
EXAMINATION: XR ABDOMEN KUB CLINICAL INDICATION: Calculus in bladder to be done in 3 months time. COMPARISON: CT abdomen and pelvis 08/11/2023. TECHNIQUE: 2 AP views of the abdomen. FINDINGS: S-shaped thoracolumbar scoliosis with advanced multilevel degenerative changes. Large amount of stool in the colon. Nonobstructive bowel gas pattern. No definitive renal calculi are appreciated, although evaluation is limited due to overlying bowel. Degenerative changes in the bilateral hips. 5 cm lobulated density in the pelvis may correlate with the calculus seen on prior CT scan. XR/XR KUB IMPRESSION: 5 cm lobulated density in the pelvis may correlate with the calculus seen on prior CT scan.
== END 2023-12-10 11:25 | disposition home or self-care (01) ==
LOC: HO.XRAY 11:24
PROVIDERS: PCP Internal Medicine; Visit Provider Urology
DX: N21.0 Calculus in bladder (principal)
CPT/HCPCS: 74018

== ENCOUNTER 2023-12-13 12:57 | Outpatient (AMB) | payer MEDICARE, SELFPAY ==
--- NOTE | 2023-12-13 12:58 | A.OFFVIS_ITS ---
Intake Intake Visit Reasons: 3m follow up/KUB Intake Note: Patient presents today for a follow up on KUB Meds- None Allergies to Antibiotic- No Known Allergies Blood Thinner- Aspirin Jewelry Mechanic Required: No Accompanied by: Son Allergies No Known Allergies [No Known Allergies*] Allergy (Verified 12/13/23 13:08) Medication List - Last Reconciled 12/13/23 by Kofi Guardado MD aspirin 81 mg PO DAILY atorvastatin 40 mg PO DAILY bethanechol chloride 50 mg PO BID 90 days clopidogrel 75 mg PO DAILY famotidine 20 mg PO BEDTIME metformin 1,000 mg PO DAILY multivitamin 1 tab PO DAILY sitagliptin phosphate (Januvia) 100 mg PO DAILY HPI HPI Comments History of Present Illness Details Estella is a pleasant Citizen Of [place] speaking female. She is a patient of Dr. Ortega. She is seen for the following urologic conditions - neurogenic bladder - bladder stone Brought to appointment by son who is translating Underwent a procedure approximately 1 month ago for large bladder stone Repeat KUB normal Creatinine normal Follow in 6 months with renal bladder ultrasound to ensure no hydronephrosis Given bethanechol to help with bladder emptying [facility] Medical History (Updated 12/13/23 @ 13:35 by Kofi Guardado MD) Bladder stones Osteoporosis History of urinary self-catheterization Neurogenic bladder PVD (peripheral vascular disease) HTN (hypertension) Grace catheter in place Diabetic neuropathy associated with diabetes mellitus due to underlying condition Mixed hyperlipidemia Essential hypertension Non-insulin dependent type 2 diabetes mellitus Lower back pain Physical deconditioning Fall Surgical History History of surgery on left wrist Hx of colonoscopy History of pubovaginal sling Social History Household Members: Family Housing: House Are you a primary primary care physician to a significant other at home: No Do you presently have visiting nurse or other home services: Yes (VNA, PT) Patient Tobacco Use Status: Never used Tobacco service: No Review of Systems Const Denies chills and Denies fever(s) Card Reports no additional complaints and Denies syncope Resp Denies cough GI Denies abdominal pain and Denies heartburn Reports as per HPI and Denies change in libido Neuro Denies syncope Psych Denies change in libido Endo Denies change in libido Physical Exam Const General: cooperative, healthy appearing, comfortable and no acute distress Orientation/consciousness: patient oriented x3 HEENT Face and sinus: Yes normal facial exam Mouth: moist mucous membranes Neck Neck: Yes normal visual inspection, Yes full ROM and Yes trachea midline Chest Chest palpation & inspection: normal inspection of the chest Resp Effort & Inspection: normal respiratory effort, able to speak in complete sentences and no respiratory distress GI Inspection: Yes normal to inspection Back/Spine/Pelvis Cervical Spine: normal cervical lordosis Thoracic/Lumbar Spine: thoracic and lumbar spine normal to inspection Skin General skin exam: no rashes or lesions noted Neuro General: patient oriented x3, gait normal, tone normal and moves all extremities Extrem General: Yes normal to inspection and Yes capillary refill normal Assessment & Plan Assessment & Plan (1) Bladder stones: Code(s): N21.0 - Calculus in bladder (2) Neurogenic bladder: Code(s): N31.9 - Neuromuscular dysfunction of bladder, unspecified Plan Six-month follow-up renal bladder ultrasound Orders: Orders US renal BI 6 Months N31.9 - Neuromuscular dysfunction of bladder, unspecified US bladder 6 Months N31.9 - Neuromuscular dysfunction of bladder, unspecified, R39.12 - Poor urinary stream Medications: New bethanechol chloride 50 mg PO BID 90 days 180 tabs 1RF N31.9 - Neuromuscular dysfunction of bladder, unspecified Patient Instructions: Imaging studies, laboratory and physical exam results were discussed and reviewed in detail. No major barriers to patient understanding were identified. An opportunity to ask questions regarding the treatment plan was provided. All questions were answered. The patient expressed understanding and agreement with the above treatment plan. The patient is aware they should contact our office by phone for worsening of their current condition or the appearance of new urologic symptoms. Compliance is encouraged with any medications and followup testing that is ordered. It is a privilege to participate in the urologic care of your patient. If you have any questions or concerns regarding treatment for the above conditions, or other urologic issues, please do not hesitate to contact me. The office telephone contact is [phone]. This note is constructed using voice recognition software. While every effort has been made to ensure accuracy apple checker errors may have been included. Yours sincerely, Dr Kofi Guardado MD, [facility] - Urology Providers of Expert, Compassionate Care for the Genitourinary System Coding Level of Care Code Est Pt Level 4 (88987) Diagnoses Bladder stones N21.0 Neurogenic bladder N31.9
== END 2023-12-13 13:41 | disposition home or self-care (01) ==
PROVIDERS: PCP Internal Medicine; Visit Provider Urology
DX: N21.0 Calculus in bladder (principal); N31.9 Neuromuscular dysfunction of bladder, unspecified
CPT/HCPCS: 99213

== ENCOUNTER → 2023-12-13 12:57 | Outpatient (BNVA) | payer MEDICARE, SELFPAY | PROVIDERS: PCP Internal Medicine; Visit Provider Urology | DX: N31.9 Neuromuscular dysfunction of bladder, unspecified (principal); N21.0 Calculus in bladder | CPT/HCPCS: 99212 ==

== ENCOUNTER 2024-06-22 10:14 | Outpatient (REF) | payer MEDICARE, SELFPAY ==
--- NOTE | ~2024-06-22 | US_ITS ---
EXAMINATION: US RETROPERITONEAL COMPLETE (RENAL) CLINICAL INFORMATION: Neuromuscular dysfunction of bladder, unspecified. COMPARISON: X-ray abdomen KUB 12/10/2023. CT abdomen and pelvis 08/11/2023. TECHNIQUE: Real-time imaging of the kidneys and bladder. FINDINGS: RIGHT KIDNEY: 8.7 x 4.9 x 4.8 cm (SAG x AP x TRV). The kidney is normal in size, contour, and echogenicity. Renal cortical thickness is normal. No calculi or focal parenchymal lesions. No hydronephrosis. LEFT KIDNEY: 9.5 x 4.1 x 3.4 cm (SAG x AP x TRV). The kidney is normal in size, contour, and echogenicity. Renal cortical thickness is normal. No focal parenchymal lesions. There is a left upper pole 2 mm echogenic focus with twinkle artifact consistent with a nonobstructing stone. There is no hydronephrosis. BLADDER: Well distended. Bilateral ureteral jets are not demonstrated. Prevoid bladder volume is 260 mL. Postvoid bladder volume is 152 mL. There is a large 5.8 x 2.1 x 4.5 cm stone in the bladder. US/US retroperitoneal comp IMPRESSION: 1. Large 5.8 cm bladder stone. 2. A 2 mm nonobstructing left upper pole renal calculus. 3. A 152 mL postvoid residual. Electronically signed by: Dima Silva MD 08/19/2024 11:38 PM EST
== END 2024-06-22 10:15 | disposition home or self-care (01) ==
LOC: HO.US 10:14
PROVIDERS: PCP Internal Medicine; Visit Provider Urology
DX: N31.9 Neuromuscular dysfunction of bladder, unspecified (principal)
CPT/HCPCS: 76770

== ENCOUNTER 2025-02-12 11:41 | Outpatient (AMB) | payer MEDICARE, SELFPAY ==
--- NOTE | 2025-02-12 11:46 | A.OFFVIS_ITS ---
Intake Visit Reasons: 6m/US Intake Note: Patient is present for 6M/US Urology Medication:BETHANECHOL CHLORIDE Antibiotic Allergy:NONE Blood Thinner:ASPIRIN Justice Of The Peace Required: No Allergies No Known Allergies (No Known Allergies*) Allergy (Verified 02/12/25 11:47) HPI Comments Details: Estella is a pleasant [place] speaking female. She is a patient of Dr. Ortega. She is seen for the following urologic conditions - neurogenic bladder - bladder stone Brought to appointment by son who is translating Complaining of leakage Using pads at night Trial Myrbetriq Bladder stone 07/08 Procedure Repeat KUB normal Creatinine normal Follow in 6 months with renal bladder ultrasound to ensure no hydronephrosis Given bethanechol to help with bladder emptying [facility] Medical History (Updated 12/13/23 @ 13:35 by Kofi Guardado MD) Bladder stones Osteoporosis History of urinary self-catheterization Neurogenic bladder PVD (peripheral vascular disease) HTN (hypertension) Grace catheter in place Diabetic neuropathy associated with diabetes mellitus due to underlying condition Mixed hyperlipidemia Essential hypertension Non-insulin dependent type 2 diabetes mellitus Lower back pain Physical deconditioning Fall Surgical History History of surgery on left wrist Hx of colonoscopy History of pubovaginal sling Social History Household Members: Family Housing: House Are you a primary primary health care nurse to a significant other at home: No Do you presently have visiting nurse or other home services: Yes (VNA, PT) Patient Tobacco Use Status: Never used Tobacco service: No Assessment & Plan Assessment & Plan (1) Neurogenic bladder: Code(s): N31.9 - Neuromuscular dysfunction of bladder, unspecified Category: Medical Plan Trial B agonist Orders: Orders XR KUB 3 Months N21.0 - Calculus in bladder Medications: New mirabegron ER 25 mg PO DAILY 30 tabs 2RF 30 days N31.9 - Neuromuscular dysfunction of bladder, unspecified Patient Instructions: This note is constructed using voice recognition software. While every effort has been made to ensure accuracy control system computer scientist errors may have been included. Imaging studies, laboratory and physical exam results were discussed and reviewed in detail. No major barriers to patient understanding were identified. An opportunity to ask questions regarding the treatment plan was provided. All questions were answered. The patient expressed understanding and agreement with the above treatment plan. The patient is aware they should contact our office by phone for worsening of their current condition or the appearance of new urologic symptoms. Compliance is encouraged with any medications and followup testing that is ordered. It is a privilege to participate in the urologic care of your patient. If you have any questions or concerns regarding treatment for the above conditions, or other urologic issues, please do not hesitate to contact me. The office telephone contact is [phone]. Sincerely, Dr Kofi Guardado MD, [facility] - Urology Compassionate Specialist Care for the Genitourinary System Coding Level of Care Code Est Pt Level 4 (31357) Diagnoses Neurogenic bladder N31.9
--- OUTSIDE RECORDS SUMMARY | 2025-02-12 12:34 | XMS_ITS ---
Author Organization [facility] Address [address] [place] [address] Care Team Providers Care Paper Gluing Operator Name Role Phone Tana Ortega Primary Care Provider Unavailab Radha Pop Unavailable [phone] Encounters Encounter Location Date Provider Diagnosis [address] [address] 09/17/2024 Radha Ingram Plan Of Treatment Next Appt Details Provider Name:Radha Ingram , 03/11/2025 09:15:00 AM, [address] [place], [address], Progress Notes * Estella NICOLEDOB:1940 (84 yo F)Acc No.[id number]:09/17/2024 Progress Note Patient:?Estella NICOLE Provider:?Radha Ingram DPM :1940???Age:84 Y???Sex:Female D ate:09/17/2024 Address:[address] [place], [place] [address] Pcp:Tana Ortega Subjective: * Chief Complaints: * ??? * Medical History:? Objective: * Vitals:? Assessment: Plan: * Treatment: * Images: * The named appointment provid er may or may not be the originator of this progress note, and it is not deemed complete until electronically signed by the appointment provider. Sign off status: Pending * Provider:Rodriguez Ingram DPM Date:?2024 Generated for Shaunna bernal/Minh/Thaoitting on:?02/12/2025 12:33 PM EDT
== END 2025-02-12 12:10 | disposition home or self-care (01) ==
LOC: HO.HUSH 11:41
PROVIDERS: PCP Internal Medicine; Visit Provider Urology
DX: N31.9 Neuromuscular dysfunction of bladder, unspecified (principal)
CPT/HCPCS: 99214

== ENCOUNTER → 2025-02-12 11:41 | Outpatient (BNVA) | payer MEDICARE, SELFPAY | PROVIDERS: PCP Internal Medicine; Visit Provider Urology | DX: N31.9 Neuromuscular dysfunction of bladder, unspecified (principal) | CPT/HCPCS: 99212 ==

== ENCOUNTER 2025-08-06 12:40 | Outpatient (AMB) | payer MEDICARE, SELFPAY ==
--- OUTSIDE RECORDS SUMMARY | 2024-09-17 06:00 | XMS_ITS ---
Author Organization [facility] Address [address] [place] [address] Care Team Providers Care Equal Opportunity Specialist Name Role Phone Tana Ortega Primary Care Provider Unavailab Radha Pop [phone] Encounters Encounter Location Date Provider Diagnosis [address] [address] 09/17/2024 Radha Ingram Plan Of Treatment No Information Progress Notes * Estella NICOLEDOB:1940 (85 yo F)Acc No.[id number]:09/17/2024 Progress Note Patient: Estella AGUILAR Provider: Pattie Ingram DPM :1940 A ge:84 Y S ex:Female Date:09/17/2024 Address:[address] [place], [place] [id number] Pcp:Tana Ortega Subjective: * Chief Complaints: * [...] 0 09/17/2024 Generated for Shaunna bernal/Minh/eTransmitting on: 10/06/2024 01:03 PM EST
--- OUTSIDE RECORDS SUMMARY | 2024-12-10 04:15 | XMS_ITS ---
Author Organization [facility] Address [address] [place] [address] Care Team Providers Care Bridge Worker Apprentice Name Role Phone Tana Ortega Primary Care Provider Unavailab Radha Pop [phone] Encounters Encounter Location Date Provider Diagnosis [address] [address] 12/10/2024 Radha Ingram Plan Of Treatment No Information Progress Notes * Estella NICOLEDOB:1940 (85 yo F)Acc No.[id number]:12/10/2024 Progress Note Patient: Estella AGUILAR Provider: Pattie Ingram DPM :1940 A ge:84 Y S ex:Female Date:12/10/2024 Address:[address] [place], [place] [id number] Pcp:Tana Ortega Subjective: * Chief Complaints: * [...] 0 12/10/2024 Generated for Shaunna bernal/Minh/eTransmitting on: 10/06/2024 01:04 PM EST
--- OUTSIDE RECORDS SUMMARY | 2025-03-11 04:15 | XMS_ITS ---
Author Organization [facility] Address [address] [place] [address] Care Team Providers Care Bi Architect Name Role Phone Tana Ortega Primary Care Provider Unavailab Radha Pop [phone] Encounters Encounter Location Date Provider Diagnosis [address] [address] 03/11/2025 Radha Ingram Plan Of Treatment No Information Progress Notes * Estella NICOLEDOB:1940 (85 yo F)Acc No.[id number]:03/11/2025 Progress Note Patient: Estella AGUILAR Provider: Pattie Ingram DPM :1940 A ge:84 Y S ex:Female Date:03/11/2025 Address:[address] [place], [place] [id number] Pcp:Tana Ortega Subjective: * Chief Complaints: * * Medical History: Objective: * Vitals: Assessment: Plan: * Treatment: * Images: * The named appointment provid er may or may not be the originator of this progress note, and it is not deemed complete until electronically signed by the appointment provider. Sign off status: Pending * Provider: Pattie Ingram DPM Date: 0 03/11/2025 Generated for Shaunna bernal/Minh/eThismitting on: 10/06/2024 01:04 PM EST
--- OUTSIDE RECORDS SUMMARY | 2025-05-27 03:30 | XMS_ITS ---
Author Organization [facility] Address [address] [place] [address] Care Team Providers Care Automotive Parts Counterperson Name Role Phone Tana Ortega Primary Care Provider Unavailab Radha Pop Unavailable [phone] Medications Medication SIG (Take, Route, Frequency, Duration) [...] Active Encounters Encounter Location Date Provider Diagnosis [facility] [address] [place] [address] 05/27/2025 Radha Ingram Plan Of Treatment No Information Progress Notes * Estella NICOLEDOB:1940 (85 yo F)Acc No.[id number]:05/27/2025 Progress Note Patient: Estella AGUILAR Provider: Pattie Ingram DPM :1940 A ge:85 Y S ex:Female Date:05/27/2025 Address:[address] [place], [place] [id number] Pcp:Tana Ortega Subjective: * Chief Complaints: * [...] 0 05/27/2025 Generated for Shaunna bernal/Minh/Higinio on: 10/06/2024 01:04 PM EST
--- NOTE | 2025-08-06 12:58 | A.OFFVIS_ITS ---
Intake Visit Reasons: Med Review/PVR Intake Note: Patient Is Present for PVR/Med Review Urology Med: Bethanechol, Myrbetriq (No longer on Myrbetriq) Antibiotic Allergy: None Blood Thinner: Clopidogrel, Aspirin Patient reports foul smelling Urine, she believes she may have a UTI PVR:6ml Rehabilitation Coordinator Required: No Extension Associate: Extension Associate Present Accompanied by: Son Allergies No Known Allergies (No Known Allergies*) Allergy (Verified 08/06/25 13:04) HPI Comments Details: Estella is a pleasant Estonian speaking female. She is a patient of Dr. Ortega. She is seen for the following urologic conditions - neurogenic bladder - bladder stone Brought to appointment by son who is translating Follow-up trial of Myrbetriq Did not really work Continue with bethanechol effective for bladder emptying Bladder ultrasound reviewed. Does show stone in place. Obtain KUB Antibiotics Plan intervention Complaining of leakage Using pads at night Bladder stone 07/08 Procedure Repeat KUB normal Creatinine normal Given bethanechol to help with bladder emptying PFSH Medical History Bladder stones Osteoporosis History of urinary self-catheterization Neurogenic bladder PVD (peripheral vascular disease) HTN (hypertension) Grace catheter in place Diabetic neuropathy associated with diabetes mellitus due to underlying condition Mixed hyperlipidemia Essential hypertension Non-insulin dependent type 2 diabetes mellitus Lower back pain Physical deconditioning Fall Surgical History History of surgery on left wrist Hx of colonoscopy History of pubovaginal sling Social History Household Members: Family Housing: House Are you a primary home care physical therapist to a significant other at home: No Do you presently have visiting nurse or other home services: Yes (VNA, PT) Patient Tobacco Use Status: Never used Tobacco service: No Review of Systems Const Denies chills and Denies fever(s) Card Reports no additional complaints and Denies syncope Resp Denies cough GI Denies abdominal pain and Denies heartburn Reports as per HPI and Denies change in libido Neuro Denies syncope Psych Denies change in libido Endo Denies change in libido Physical Exam Const General: cooperative, healthy appearing, comfortable and no acute distress Orientation/consciousness: patient oriented x3 HEENT Face and sinus: Yes normal facial exam Mouth: moist mucous membranes Neck Neck: Yes normal visual inspection, Yes full ROM and Yes trachea midline Chest Chest palpation & inspection: normal inspection of the chest Resp Effort & Inspection: normal respiratory effort, able to speak in complete sentences and no respiratory distress GI Inspection: Yes normal to inspection Back/Spine/Pelvis Cervical Spine: normal cervical lordosis Thoracic/Lumbar Spine: thoracic and lumbar spine normal to inspection Skin General skin exam: no rashes or lesions noted Neuro General: patient oriented x3, gait normal, tone normal and moves all extremities Extrem General: Yes normal to inspection and Yes capillary refill normal Office Procedures Post Void Residual Post Residual Void Post Void Residual (PVR): 6 73748-Kbba Void Residual by ultrasound Results AMB Urinalysis, Automated UA Leukoctes 500 Valdemar/uL Last Edit by Daksha Michelle [facility] on 08/06/25 13:23 UA Nitrite Negative Last Edit by Daksha Michelle [facility] on 08/06/25 13:23 UA Urobilinogen 0.2 mg/dL Last Edit by Daksha Michelle [facility] on 08/06/25 13:2 3 UA Protein 300 mg/dL Last Edit by Daksha Michelle [facility] on 08/06/25 13:23 UA pH 9.0 Last Edit by Daksha Michelle [facility] on 08/06/25 13:23 UA Blood 200 Samuel/uL Last Edit by Daksha Michelle [facility] on 08/06/25 13:23 UA Specific [place] 1.005 Last Edit by Daksha Michelle [facility] on 08/06/25 13: 23 UA Ketone Negative Last Edit by Daksha Michelle [facility] on 08/06/25 13:23 UA Bilirubin 0 mg/dL Last Edit by Daksha Michelle [facility] on 08/06/25 13:23 UA Glucose 0 mg/dL Last Edit by aDksha Michelle [facility] on 08/06/25 13:23 Results Reviewed Results Reviewed: Laboratory Last Values Urine pH (Auto) 9.0 08/06/25 13:05 Specific [place] (Auto) 1.005 08/06/25 13:05 Urine Protein (Auto) 300 mg/dL 08/06/25 13:05 Glucose (UA)(Auto) 0 mg/dL 08/06/25 13:05 Urine Ketones (Auto) Negative 08/06/25 13:05 Urine Blood (Auto) 200 Samuel/uL 08/06/25 13:05 Urine Nitrite (Auto) Negative 08/06/25 13:05 Urine Bilirubin (Auto) 0 mg/dL 08/06/25 13:05 Urine Urobilinogen (Auto) 0.2 mg/dL 08/06/25 13:05 Leukocyte Esterase (Auto) 500 Valdemar/uL 08/06/25 13:05 Assessment & Plan Assessment & Plan (1) Bladder stones: Code(s): N21.0 - Calculus in bladder Category: Medical Plan Current bladder stone Risks, benefits and alternatives to therapy were discussed. These include but are not limited to infection, bleeding, damage to local organs and tissues, need for further interventions. Anesthetic risks regarding cardiac arrhythmia, blood clots, and potential mortality were discussed. The patient understands the typical recovery time and the outpatient nature of the procedure. After consideration of these risks the patient gives full informed consent and they wish to move ahead with the procedure. Cysto litholapaxy Orders: Orders AMB Post Void Residual by ultrasound Today N31.9 - Neuromuscular dysfunction of bladder, unspecified AMB Urinalysis Automated Today Z13.9 - Encounter for screening, unspecified Urine Culture Today N39.0 - Urinary tract infection, site not specified XR KUB Today N21.0 - Calculus in bladder Medications: Refilled cefuroxime axetil 250 mg PO BID 14 tabs 0RF 7 days N21.0 - Calculus in bladder Patient Instructions: This note is constructed using voice recognition software. While every effort has been made to ensure accuracy speech language pathologist travel errors may have been included. Imaging studies, laboratory and physical exam results were discussed and reviewed in detail. No major barriers to patient understanding were identified. An opportunity to ask questions regarding the treatment plan was provided. All questions were answered. The patient expressed understanding and agreement with the above treatment plan. The patient is aware they should contact our office by phone for worsening of their current condition or the appearance of new urologic symptoms. Compliance is encouraged with any medications and followup testing that is ordered. It is a privilege to participate in the urologic care of your patient. If you have any questions or concerns regarding treatment for the above conditions, or other urologic issues, please do not hesitate to contact me. The office telephone contact is [phone]. Sincerely, Dr Kofi Guardado MD, [facility] - Urology Compassionate Specialist Care for the Genitourinary System Coding Level of Care Code Est Pt Level 4 (52231) Diagnoses Bladder stones N21.0 CPT Codes Post Residual Void - PVR CPT Code: 83840-Ttpo Void Residual by ultrasound ([id number])
--- OUTSIDE RECORDS SUMMARY | 2025-08-06 13:05 | XMS_ITS | Patient Health Record ---
Author [facility] Address [address] [place] [address] Care Team Providers Care Hydraulics Engineer Name Role Phone Jordan Tana Primary Care Provider Unavailab tiara IngramRadha Unavailable [phone] Allergies No Known Allergies Reason For Referral No Information Medications Medication SIG (Take, Route, Frequency, Duration) Notes Start Date End Date Status Plavix Active Lac-Hydrin Twelve No t-Taking glipiZIDE Not-Taking Lovastatin Active Lisinopril Active Lac-Hydrin Twelve 12 % 1 application Externally Twice a day; Duration: 30 days 08/10/2019 Active Atorvastatin Calcium Active Ammonium Lactate 12 % 1 application to affected area Externally Twice a day to dry areas of skin on feet; Duration: 30 days 03/09/2024 Active Clotrimazole-Betamethason e 1-0.05 % 1 application Externally Twice a day; Duration: 30 days 07/27/2021 Active metFORMIN HCl Active Immunizations Vaccine Route Administration Date Status Comme nts Influenza Unknown 07/27/2015 Administered Influenza Unknown 08/01/2017 Administered Influenza Unknown 05/18/2019 Administered Influenza Unknown 05/17/2023 Administered Social History Tobacco Use: Social History Observation Description Date Details (start date - stop date) Never Smoker NA - NA Tobacco Use/Smoking Question Answer Notes Are you a: nonsmoker Alcohol Screen Question Answer Notes Did you have a drink containing alcohol in the p ast year? No Points 0 Interpretation Negative Tobacco use other than smoking: Question Answer Notes Are you an other tobacco user? No Problems Problem Type SNOMED Code ICD Code Onset Dates Problem Status W/U Status Risk Notes Problem Non-pressure chronic ulcer of other part of right foot limited to breakdown of skin (L97.511) Active confirmed Problem Bilateral atherosclerosis of arteries of lower limbs (disorder) (97724595433007157 ) Unspecified atherosclerosis of [place] arteries of extremities, bilateral legs (I70.203) Active confirmed Problem Non-pressure chronic ulcer of other part of left foot limited to breakdown of skin (L97.521) Active confirmed Problem Polyneuropathy due to type 2 diabetes mellitus (631852989) Type 2 diabetes mellitus with diabetic polyneuropathy (E11.42) Active confirmed Problem Acquired hammer toe of right foot (5122835139426745) Hammer toe of right foot (M20.41) Active confirmed Problem Acquired hammer toe of left foot (0502695299379782) Hammer toe of left foot (M20.42) Active confirmed Problem PlantarFlexion o f metatarsal of left foot (M21.6X2) Active confirmed Problem Ulcer of right heel (disorder) (61285814931172510 ) Skin ulcer of right heel, limited to breakdown of skin (L97.411) Active confirmed Problem Neuropathic ulce r, limited to breakdown of skin (L98.491) Active confirmed Encounters Encounter Location Date Provider Diagnosis [facility] [address] [address] 09/11/2024 [facility] [address] 12/08/2024 [facility] [address] 03/09/2025 [facility] [address] 05/27/2025 [facility] [address] 05/27/2025 Radhabalbir Ingram Plan Of Treatment Pending Test Test Name Order Date X ray : Foot, left 3V 06/09/2020 X ray : Foot, right 3V 06/09/2020 51208-VAESIGO NAIL, 6 OR MORE 06/09/2020 84958-WMAQKMU NAIL, 6 OR MORE 08/10/2019 02298-OZHAVSB NAIL, 6 OR MORE 07/27/2021 14760-SJTBNMV NAIL, 6 OR MORE 04/01/2023 45391-DZPMRGG NAIL, 6 OR MORE 10/25/2022 93158-KAZIOMU NAIL, 6 OR MORE 03/09/2024 56600-RUIEGGS NAIL, 6 OR MORE 04/01/2012 91362-DZWEVXC NAIL, 6 OR MORE 10/15/2012 70013-GFEJUYS NAIL, 6 OR MORE 01/12/2013 79164-HVMTKFZ NAIL, 6 OR MORE 04/15/2013 46588-RKTEEMJ NAIL, 6 OR MORE 11/11/2013 13043-POJZPSU NAIL, 6 OR MORE 08/05/2013 73096-XQNXHFW NAIL, 6 OR MORE 05/19/2014 10100-RUKYIGF NAIL, 6 OR MORE 02/10/2014 34350-UJPKOGI NAIL, 6 OR MORE 11/29/2014 13525-EBOWHFT NAIL, 6 OR MORE 02/28/2015 88911-CSMARNK NAIL, 6 OR MORE 08/30/2014 02443-XZLSZFU NAIL, 6 OR MORE 09/26/2015 92270-EHOLGJE NAIL, 6 OR MORE 01/30/2016 08182-FDITVTH NAIL, 6 OR MORE 11/26/2016 36179-YTOHOKQ NAIL, 6 OR MORE 08/15/2017 60061-UOPKVTS NAIL, 6 OR MORE 04/17/2018 26649-Kflsonfi Plate 04/17/2018 73667-Tzbpkmfi Plate 08/15/2017 41544-Bntdstul Plate 11/26/2016 16191-Qmkcrntx Plate 09/26/2015 21927-Taozddzl Plate 01/30/2016 57675-Pyjqlxsx Plate 02/28/2015 60409-Ollvuseg Plate 11/29/2014 46601-Qofqnpco Plate 08/30/2014 17840-Umolibsf Plate 05/19/2014 36870-Pyoqbjyg Plate 02/10/2014 49358-Dteluxzb Plate 11/11/2013 38540-Vajzzkhf Plate 08/05/2013 71614-Geoguxza Plate 07/27/2021 51062-Qcmmfnzp Plate 10/25/2022 37486-Nzkbyenp Plate 08/10/2019 69460-Fiolxtpq Plate 06/09/2020 93016-Fzbbwcek Plate Each Additional 05421-Qrawvkkl Plate Each Additional 05/2023 27683-Tcxlkqzt Plate Each Additional 07/2021 85682-Bjjpaqpy Plate Each Additional 18080-Oowjuxxn Plate Each Additional 11/2013 42741-Gqncsgxs Plate Each Additional 72324-Vpvwfzgf Plate Each Additional 62301-Owcqfjze Plate Each Additional 52804- Debride <25 sq cm 10/15/2012 51380- Debride <25 sq cm 08/30/2014 98606- Debride <25 sq cm 02/28/2015 28466- Debride <25 sq cm 02/10/2014 76670- Debride <25 sq cm 11/29/2014 89944- Debride <25 sq cm 05/19/2014 75087- Debride <25 sq cm 08/05/2013 55978- Debride <25 sq cm 04/15/2013 16732- Debride <25 sq cm 11/11/2013 41210- Debride <25 sq cm 01/12/2013 98208- Debride <25 sq cm 10/25/2022 73770- Debride <25 sq cm 06/09/2020 18772- Debride <25 sq cm 08/10/2019 99057- Debride <25 sq cm 04/01/2023 41763- Debride <25 sq cm 03/09/2024 35899-JJSZ SKIN LESIONS, OVER 4 03/09/20 24 04806-FVCD SKIN LESIONS, OVER 4 04/01/20 23 95722-MNAK SKIN LESIONS, OVER 4 06/09/20 20 76336-ANOZ SKIN LESIONS, OVER 4 07/27/20 21 97011-JNQC SKIN LESIONS, OVER 4 10/25/19 23 54807-THNR SKIN LESIONS, OVER 4 01/13/20 13 82992-MODZ SKIN LESIONS, OVER 4 10/15/19 13 74303-ZFLQ SKIN LESIONS, OVER 4 04/01/20 12 15997-JVMG SKIN LESIONS, OVER 4 11/11/19 14 37061-GFXT SKIN LESIONS, OVER 4 04/15/20 13 47958-WUYZ SKIN LESIONS, OVER 4 05/19/20 14 51664-YRAL SKIN LESIONS, OVER 4 08/05/20 13 71592-CCDU SKIN LESIONS, OVER 4 11/30/19 15 99328-TJXM SKIN LESIONS, OVER 4 02/11/20 14 79694-IEDL SKIN LESIONS, OVER 4 02/29/20 15 74601-GPXP SKIN LESIONS, OVER 4 08/30/20 14 19580-ERZX SKIN LESIONS, OVER 4 08/10/20 19 49108-HVBZ SKIN LESIONS, OVER 4 08/15/20 17 28636-JHTJ SKIN LESIONS, OVER 4 04/17/20 18 02678-IVGK SKIN LESIONS, OVER 4 01/30/20 16 79990-RGYA SKIN LESIONS, OVER 4 09/26/19 16 89120-MPAB SKIN LESIONS, OVER 4 11/27/19 17 Insurance Providers Payer Name Payer Address Payer Phone Subscriber Number Group Number Insured Name Patient Relationship to Insured Coverage Start Date Coverage End Date [employer] Preferred [address] [place] [address] [id number] Estella Nicole Self - patient is the insured Medical (General) History Medical History History ICD Code chicken pox diabetic type two High blood pressure Surgical History Surgery Date(Month/Year) raised bladder and closed up vagina 2016 Stents put into left leg 04/05
== END 2025-08-06 13:47 | disposition home or self-care (01) ==
LOC: HO.HUSH 12:41
PROVIDERS: PCP Internal Medicine; Visit Provider Urology
DX: N21.0 Calculus in bladder (principal); Z13.9 Encounter for screening, unspecified
CPT/HCPCS: 99214

== ENCOUNTER 2025-08-06 12:40 | Outpatient (REF) | payer MEDICARE, SELFPAY | END 2025-08-06 12:41 | disposition home or self-care (01) | LOC: HO.LAB 12:40 | PROVIDERS: PCP Internal Medicine; Visit Provider Urology | DX: N21.0 Calculus in bladder (principal); N39.0 Urinary tract infection, site not specified | CPT/HCPCS: 51798; 81003; 87086; 99212 ==

== ENCOUNTER 2025-08-07 09:25 | Outpatient (REF) | payer MEDICARE, SELFPAY ==
--- OUTSIDE RECORDS SUMMARY | 2024-09-17 06:00 | XMS_ITS ---
Author Organization [facility] Address [address] [place] [address] Care Team Providers Care Plastering Supervisor Name Role Phone Tana Ortega Primary Care Provider Unavailab Radha Pop [phone] Encounters Encounter Location Date Provider Diagnosis [address] [address] 09/17/2024 Radha Ingram Plan Of Treatment No Information Progress Notes * Estella NICOLEDOB:1940 (85 yo F)Acc No.[id number]:09/17/2024 Progress Note Patient: Estella AGUILAR Provider: Pattie Ingram DPM :1940 A ge:84 Y S ex:Female Date:09/17/2024 Address:[address] [place], [place] [id number] Pcp:Tana Ortega Subjective: * Chief Complaints: * [...] 0 09/17/2024 Generated for Shaunna bernal/Minh/eTransmitting on: 10/07/2024 09:28 AM EST
--- OUTSIDE RECORDS SUMMARY | 2024-12-10 04:15 | XMS_ITS ---
Author Organization [facility] Address [address] [place] [address] Care Team Providers Care Outside Plant Engineer Name Role Phone Tana Ortega Primary Care Provider Unavailab Radha Pop [phone] Encounters Encounter Location Date Provider Diagnosis [address] [address] 12/10/2024 Radha Ingram Plan Of Treatment No Information Progress Notes * Estella NICOLEDOB:1940 (85 yo F)Acc No.[id number]:12/10/2024 Progress Note Patient: Estella AGUILAR Provider: Pattie Ingram DPM :1940 A ge:84 Y S ex:Female Date:12/10/2024 Address:[address] [place], [place] [address] Pcp:Tana Ortega Subjective: * Chief Complaints: * [...] 12/10/2024 Generated for Shaunna bernal/Minh/eTransmitting on: 1 10/07/2024 09:29 AM EST
--- OUTSIDE RECORDS SUMMARY | 2025-03-11 04:15 | XMS_ITS ---
Author Organization [facility] Address [address] [place] [address] Care Team Providers Care Umbrella Mender Name Role Phone Tana Ortega Primary Care Provider Unavailab Radha Pop [phone] Encounters Encounter Location Date Provider Diagnosis [address] [address] 03/11/2025 Radha Ingram Plan Of Treatment No Information Progress Notes * Estella NICOLEDOB:1940 (85 yo F)Acc No.[id number]:03/11/2025 Progress Note Patient: Estella AGUILAR Provider: Pattie Ingram DPM :1940 A ge:84 Y S ex:Female Date:03/11/2025 Address:[address] [place], [place] [address] Pcp:Tana Ortega Subjective: * Chief Complaints: * [...] 0 03/11/2025 Generated for Shaunna bernal/Minh/eTransmitting on: 10/07/2024 09:28 AM EST
--- OUTSIDE RECORDS SUMMARY | 2025-05-27 03:30 | XMS_ITS ---
Author Organization [facility] Address [address] [place] [address] Care Team Providers Care Stripper Cutter Machine Name Role Phone Tana Ortega Primary Care Provider Unavailab Radha Pop Unavailable [phone] Medications Medication SIG (Take, Route, Frequency, Duration) [...] Active Encounters Encounter Location Date Provider Diagnosis [facility] [address] [place] [address] 05/27/2025 Radha Ingram Plan Of Treatment No Information Progress Notes * Estella NICOLEDOB:1940 (85 yo F)Acc No.[id number]:05/27/2025 Progress Note Patient: Estella AGUILAR Provider: Pattie Ingram DPM :1940 A ge:85 Y S ex:Female Date:05/27/2025 Address:[address] [place], [place] [id number] Pcp:Tana Ortega Subjective: * Chief Complaints: * [...] 0 05/27/2025 Generated for Shaunna bernal/Minh/Higinio on: 10/07/2024 09:29 AM EST
--- NOTE | ~2025-08-07 | XR_ITS ---
CLINICAL HISTORY: N21.0 - Calculus in bladder 1 view abdomen Comparison: None provided Findings: No pneumoperitoneum or pneumatosis. Moderate colonic fecal retention. Rounded high density focus projecting over the bladder. No acute fractures. Advanced degenerative changes are present. IMPRESSION: Fecal retention within the colon. No bowel obstruction. Nonspecific rounded opacity projecting over the bladder. This document has been electronically signed by: Bob Wagner MD on 08/07/2025 10:47:44
--- OUTSIDE RECORDS SUMMARY | 2025-08-07 09:29 | XMS_ITS | Patient Health Record ---
[facility] Address [address] [place] [address] Care Team Providers Care Skull Chopper Name Role Phone Tana Ortega Primary Care Provider Unavailab tiara IngramRadha Unavailable [phone] Allergies No Known Allergies Reason For Referral [...] atherosclerosis of arteries of lower limbs (disorder) (54635656118870500 ) Unspecified atherosclerosis of [place] arteries of extremities, bilateral legs (I70.203) Active confirmed Problem Non-pressure chronic ulcer of other part of left foot limited to breakdown of skin (L97.521) Active confirmed Problem Polyneuropathy due to type 2 diabetes mellitus (426571941) Type 2 diabetes mellitus with diabetic polyneuropathy (E11.42) Active confirmed Problem Acquired hammer toe of right foot (1204923314376774) Hammer toe of right foot (M20.41) Active confirmed Problem Acquired hammer toe of left foot (9170922770767742) Hammer toe of left foot (M20.42) Active confirmed Problem PlantarFlexion o f metatarsal of left foot (M21.6X2) Active confirmed Problem Ulcer of right heel (disorder) (02050331939268673 ) Skin ulcer of right heel, limited to breakdown of skin (L97.411) Active confirmed Problem Neuropathic ulce r, limited to breakdown of skin (L98.491) Active confirmed Encounters Encounter Location Date Provider Diagnosis [facility] [address] [address] 09/11/2024 [facility] [address] 12/08/2024 [facility] [address] 03/09/2025 [facility] [address] 05/27/2025 [facility] [address] 05/27/2025 Radhabal[facility] Ingram Plan Of Treatment Pending Test Test Name Order Date X ray : Foot, left 3V 06/09/2020 X ray : Foot, right 3V 06/09/2020 65930-HIWJYQE NAIL, 6 OR MORE 07/27/2021 76023-YAMDSVT NAIL, 6 OR MORE 06/09/2020 01739-KQNECHY NAIL, 6 OR MORE 09/26/2015 79544-QLQLVME NAIL, 6 OR MORE 11/26/2016 41326-XLDIIBM NAIL, 6 OR MORE 11/11/2013 29902-TBPNDKI NAIL, 6 OR MORE 04/01/2023 28643-VWXOWSB NAIL, 6 OR MORE 08/05/2013 21938-USGTATG NAIL, 6 OR MORE 03/09/2024 91718-EGUARCG NAIL, 6 OR MORE 10/25/2022 35279-NNTFZLX NAIL, 6 OR MORE 08/10/2019 17266-FKWIXYP NAIL, 6 OR MORE 08/15/2017 26542-EHMNGMT NAIL, 6 OR MORE 01/30/2016 72559-DVSJALQ NAIL, 6 OR MORE 02/28/2015 13801-WGAPGTW NAIL, 6 OR MORE 04/17/2018 72315-NOVKLOF NAIL, 6 OR MORE 11/29/2014 63158-BVMJZBV NAIL, 6 OR MORE 08/30/2014 68874-EFCYEXH NAIL, 6 OR MORE 05/19/2014 03719-MXSDIRU NAIL, 6 OR MORE 02/10/2014 29542-XCGSZSL NAIL, 6 OR MORE 04/15/2013 25836-JIDOUBX NAIL, 6 OR MORE 01/12/2013 46497-JPIMCFI NAIL, 6 OR MORE 10/15/2012 11484-AAWXUUK NAIL, 6 OR MORE 04/01/2012 69292-Lkotmemh Plate 02/10/2014 39906-Nhwnjzco Plate 05/19/2014 93470-Ilmmakqo Plate 08/30/2014 28798-Hidarraa Plate 11/29/2014 87832-Yodnvkfh Plate 08/15/2017 69855-Fbvsdfaa Plate 04/17/2018 47941-Hrcbxzps Plate 02/28/2015 48231-Rpkbpycl Plate 01/30/2016 60222-Jshfbdwg Plate 10/25/2022 65027-Nzpsyffm Plate 08/10/2019 72524-Axsjpeyc Plate 08/05/2013 35493-Ynwkjgja Plate 11/11/2013 69815-Vqksgpkn Plate 11/26/2016 71478-Uiiezptb Plate 09/26/2015 49681-Gphqiiab Plate 06/09/2020 92425-Pxyjapml Plate 07/27/2021 83522-Gerhglnz Plate Each Additional 07/2021 71815-Vjteztlz Plate Each Additional 14197-Hdnouijv Plate Each Additional 05/2023 07089-Dfqdqfbw Plate Each Additional 56307-Vkjyyppz Plate Each Additional 90520-Saynrgsx Plate Each Additional 63324-Etxjoruz Plate Each Additional 11/2013 82474-Ffqsybzn Plate Each Additional 82097- Debride <25 sq cm 02/10/2014 13107- Debride <25 sq cm 01/12/2013 26310- Debride <25 sq cm 04/15/2013 07985- Debride <25 sq cm 05/19/2014 59864- Debride <25 sq cm 08/30/2014 71957- Debride <25 sq cm 10/15/2012 26581- Debride <25 sq cm 11/29/2014 38764- Debride <25 sq cm 02/28/2015 39231- Debride <25 sq cm 08/10/2019 71161- Debride <25 sq cm 10/25/2022 85172- Debride <25 sq cm 03/09/2024 82739- Debride <25 sq cm 06/09/2020 64228- Debride <25 sq cm 11/11/2013 47460- Debride <25 sq cm 08/05/2013 56586- Debride <25 sq cm 04/01/2023 41105-VCOI SKIN LESIONS, OVER 4 11/11/19 14 37067-CJKD SKIN LESIONS, OVER 4 08/05/20 13 01395-GKSH SKIN LESIONS, OVER 4 06/09/20 20 92091-THFX SKIN LESIONS, OVER 4 09/26/19 16 50494-YPCU SKIN LESIONS, OVER 4 11/27/19 17 21159-QCIT SKIN LESIONS, OVER 4 07/27/20 21 06730-ZLCN SKIN LESIONS, OVER 4 04/01/20 23 52923-GQDX SKIN LESIONS, OVER 4 03/09/20 24 29889-NWTW SKIN LESIONS, OVER 4 10/25/19 23 14152-MVHK SKIN LESIONS, OVER 4 08/10/20 19 65180-SRQR SKIN LESIONS, OVER 4 04/17/20 18 40545-MTNI SKIN LESIONS, OVER 4 02/29/20 15 88590-NORM SKIN LESIONS, OVER 4 01/30/20 16 64854-HTRX SKIN LESIONS, OVER 4 11/30/19 15 41186-KDGU SKIN LESIONS, OVER 4 08/15/20 17 24572-CXLS SKIN LESIONS, OVER 4 04/01/20 12 48598-QLLF SKIN LESIONS, OVER 4 10/15/19 13 15432-KXVG SKIN LESIONS, OVER 4 08/30/20 14 63271-KRVQ SKIN LESIONS, OVER 4 05/19/20 14 93567-LFEJ SKIN LESIONS, OVER 4 04/15/20 13 10299-HWGV SKIN LESIONS, OVER 4 01/13/20 13 30275-JKKZ SKIN LESIONS, OVER 4 02/11/20 14 Insurance Providers Payer Name Payer Address Payer Phone Subscriber Number Group Number Insured Name Patient Relationship to Insured Coverage Start Date Coverage End Date [employer] Preferred [address] [place] [address] [phone] [id number] Estella Nicole Self - patient is the insured Medical (General) History Medical History History ICD Code chicken pox diabetic type two High blood pressure Surgical History Surgery Date(Month/Year) raised bladder and closed up vagina 2016 Stents put into left leg 04/05
== END 2025-08-07 09:26 | disposition home or self-care (01) ==
LOC: HO.XRAY 09:25
PROVIDERS: PCP Internal Medicine; Visit Provider Urology
DX: N21.0 Calculus in bladder (principal)
CPT/HCPCS: 74018

== ENCOUNTER → 2025-08-07 09:32 | Outpatient (BNV) | payer MEDICARE, SELFPAY | PROVIDERS: PCP Internal Medicine; Visit Provider Radiology Vascular & Interventional Radiology | DX: K59.00 Constipation, unspecified (principal); N21.0 Calculus in bladder | CPT/HCPCS: 74018 ==

== ENCOUNTER 2025-09-06 07:05 | Day surgery (SDC) | payer MEDICARE, SELFPAY ==
--- OUTSIDE RECORDS SUMMARY | 2024-09-17 06:00 | XMS_ITS ---
Author Organization [facility] Address [address] [place] [address] Care Team Providers Care Manager Utilization Name Role Phone Tana Ortega Primary Care Provider Unavailab Radha Pop [phone] Encounters Encounter Location Date Provider Diagnosis [address] [address] 09/17/2024 Radha Ingram Plan Of Treatment No Information Progress Notes * Estella NICOLEDOB:1940 (85 yo F)Acc No.[id number]:09/17/2024 Progress Note Patient: Estella AGUILAR Provider: Pattie Ingram DPM :1940 A ge:84 Y S ex:Female Date:09/17/2024 Address:[address] [place], [place] [id number] Pcp:Tana Ortega Subjective: * Chief Complaints: * [...] DPM Date: 0 09/17/2024 Generated for Shaunna bernal/Minh/eThismitting on: 10/19/2024 06:15 PM EST
--- OUTSIDE RECORDS SUMMARY | 2024-12-10 04:15 | XMS_ITS ---
Author Organization [facility] Address [address] [place] [address] Care Team Providers Care Hand Almond Blancher Name Role Phone Tana Ortega Primary Care Provider Unavailab Radha Pop [phone] Encounters Encounter Location Date Provider Diagnosis [address] [address] 12/10/2024 Radha Ingram Plan Of Treatment No Information Progress Notes * Estella NICOLEDOB:1940 (85 yo F)Acc No.[id number]:12/10/2024 Progress Note Patient: Estella AGUILAR Provider: Pattie Ingram DPM :1940 A ge:84 Y S ex:Female Date:12/10/2024 Address:[address] [place], [place] [id number] Pcp:Tana Ortega Subjective: * Chief Complaints: * [...] 12/10/2024 Generated for Shaunna bernal/Minh/eTransmitting on: 1 10/19/2024 06:15 PM EST
--- OUTSIDE RECORDS SUMMARY | 2025-03-11 04:15 | XMS_ITS ---
Author Organization [facility] Address [address] [place] [address] Care Team Providers Care Salesperson Driver Name Role Phone Tana Ortega Primary Care Provider Unavailab Radha Pop [phone] Encounters Encounter Location Date Provider Diagnosis [address] [address] 03/11/2025 Radha Ingram Plan Of Treatment No Information Progress Notes * Estella NICOLEDOB:1940 (85 yo F)Acc No.[id number]:03/11/2025 Progress Note Patient: Estella AGUILAR Provider: Pattie Ingram DPM :1940 A ge:84 Y S ex:Female Date:03/11/2025 Address:[address] [place], [place] [phone] Pcp:Tana Ortega Subjective: * Chief Complaints: * [...] DPM Date: 0 03/11/2025 Generated for Shaunna bernal/Minh/eTransmitting on: 10/19/2024 06:15 PM EST
--- OUTSIDE RECORDS SUMMARY | 2025-05-27 03:30 | XMS_ITS ---
Author Organization [facility] Address [address] [place] [address] Care Team Providers Care Senior Marketing Specialist Name Role Phone Tana Ortega Primary Care Provider Unavailab Radha Pop Unavailable [phone] Medications Medication SIG (Take, Route, Frequency, Duration) [...] Active Encounters Encounter Location Date Provider Diagnosis [facility] [address] [place] [address] 05/27/2025 Radha Ingram Plan Of Treatment No Information Progress Notes * Estella NICOLEDOB:1940 (85 yo F)Acc No.[id number]:05/27/2025 Progress Note Patient: Estella AGUILAR Provider: Pattie Ingram DPM :1940 A ge:85 Y S ex:Female Date:05/27/2025 Address:[address] [place], [place] [address] Pcp:Tana Ortega Subjective: * Chief Complaints: * [...] 0 05/27/2025 Generated for Shaunna bernal/Minh/Higinio on: 10/19/2024 06:15 PM EST
--- OUTSIDE RECORDS SUMMARY | 2025-08-18 18:15 | XMS_ITS | Patient Health Record ---
Author [facility] Address [address] [place] [address] Care Team Providers Care Human Resource Consultant Name Role Phone Jordan Tana Primary Care Provider Unavailab tiara IngramRadha Unavailable [phone] Allergies No Known Allergies Reason For Referral [...] atherosclerosis of arteries of lower limbs (disorder) (33372598855231511 ) Unspecified atherosclerosis of [place] arteries of extremities, bilateral legs (I70.203) Active confirmed Problem Non-pressure chronic ulcer of other part of left foot limited to breakdown of skin (L97.521) Active confirmed Problem Polyneuropathy due to type 2 diabetes mellitus (325540877) Type 2 diabetes mellitus with diabetic polyneuropathy (E11.42) Active confirmed Problem Acquired hammer toe of right foot (1993530908230357) Hammer toe of right foot (M20.41) Active confirmed Problem Acquired hammer toe of left foot (7065872763839955) Hammer toe of left foot (M20.42) Active confirmed Problem PlantarFlexion o f metatarsal of left foot (M21.6X2) Active confirmed Problem Ulcer of right heel (disorder) (72718043402026411 ) Skin ulcer of right heel, limited to breakdown of skin (L97.411) Active confirmed Problem Neuropathic ulce r, limited to breakdown of skin (L98.491) Active confirmed Encounters Encounter Location Date Provider Diagnosis [facility] [address] [address] 09/11/2024 [facility] [address] 12/08/2024 [facility] [address] 03/09/2025 [facility] [address] 05/27/2025 [facility] [address] 05/27/2025 Radhabalbir Ingram Plan Of Treatment Pending Test Test Name Order Date X ray : Foot, left 3V 06/09/2020 X ray : Foot, right 3V 06/09/2020 65970-JVFUGAV NAIL, 6 OR MORE 06/09/2020 56630-GPSHEEM NAIL, 6 OR MORE 08/10/2019 14671-DKDTZKU NAIL, 6 OR MORE 07/27/2021 42798-EYPWSLU NAIL, 6 OR MORE 04/01/2023 31309-IVZGULU NAIL, 6 OR MORE 10/25/2022 21445-HALLVAE NAIL, 6 OR MORE 03/09/2024 29387-CGZYNCY NAIL, 6 OR MORE 04/01/2012 50570-PJGHBPN NAIL, 6 OR MORE 10/15/2012 87830-CZKRPGG NAIL, 6 OR MORE 01/12/2013 77050-BQTXQRM NAIL, 6 OR MORE 04/15/2013 65805-GLHFOGS NAIL, 6 OR MORE 11/11/2013 60649-IRITAMQ NAIL, 6 OR MORE 08/05/2013 28419-IJJNARG NAIL, 6 OR MORE 05/19/2014 08246-YAUIGFO NAIL, 6 OR MORE 02/10/2014 56102-YKQPYAV NAIL, 6 OR MORE 11/29/2014 54005-HKCFCGV NAIL, 6 OR MORE 02/28/2015 15239-CSFJUEP NAIL, 6 OR MORE 08/30/2014 06073-AMJGALX NAIL, 6 OR MORE 09/26/2015 31430-RLTBQHF NAIL, 6 OR MORE 01/30/2016 81334-IEGUDZT NAIL, 6 OR MORE 11/26/2016 46967-WHQKLPB NAIL, 6 OR MORE 08/15/2017 34859-OPEHAKA NAIL, 6 OR MORE 04/17/2018 88794-Uhkjnjjc Plate 04/17/2018 96616-Vjgexwzs Plate 08/15/2017 26789-Ioyqwmno Plate 11/26/2016 88025-Wwlcwenb Plate 09/26/2015 97372-Hfknemlr Plate 01/30/2016 81878-Nqjasuil Plate 02/28/2015 65566-Nykktllr Plate 11/29/2014 20842-Xqhpwioo Plate 08/30/2014 91842-Ylfheqel Plate 05/19/2014 71904-Zgsdctuf Plate 02/10/2014 83796-Kpwpcomu Plate 11/11/2013 07190-Xnjzkanw Plate 08/05/2013 93583-Ttbugsgv Plate 07/27/2021 91697-Fgxdhfxt Plate 10/25/2022 03699-Knaidfzh Plate 08/10/2019 62184-Mxzylalt Plate 06/09/2020 45614-Psfxogtr Plate Each Additional 10107-Tjzuxceb Plate Each Additional 05/2023 76509-Rzyqcerg Plate Each Additional 07/2021 44923-Uddxuuwx Plate Each Additional 43080-Rsweckgz Plate Each Additional 11/2013 33193-Uvqkmrwt Plate Each Additional 66588-Czuceutf Plate Each Additional 11196-Ixttpsrh Plate Each Additional 40127- Debride <25 sq cm 10/15/2012 68571- Debride <25 sq cm 08/30/2014 46481- Debride <25 sq cm 02/28/2015 68671- Debride <25 sq cm 02/10/2014 54322- Debride <25 sq cm 11/29/2014 44992- Debride <25 sq cm 05/19/2014 55276- Debride <25 sq cm 08/05/2013 97534- Debride <25 sq cm 04/15/2013 77100- Debride <25 sq cm 11/11/2013 15611- Debride <25 sq cm 01/12/2013 01800- Debride <25 sq cm 10/25/2022 30367- Debride <25 sq cm 06/09/2020 39943- Debride <25 sq cm 08/10/2019 88721- Debride <25 sq cm 04/01/2023 17970- Debride <25 sq cm 03/09/2024 25351-HJOD SKIN LESIONS, OVER 4 03/09/20 24 85688-MOCZ SKIN LESIONS, OVER 4 04/01/20 23 27953-URFS SKIN LESIONS, OVER 4 06/09/20 20 18651-ZRVN SKIN LESIONS, OVER 4 07/27/20 21 33882-GAAH SKIN LESIONS, OVER 4 10/25/19 23 08043-TNTA SKIN LESIONS, OVER 4 01/13/20 13 13903-HVMO SKIN LESIONS, OVER 4 10/15/19 13 85971-DTQL SKIN LESIONS, OVER 4 04/01/20 12 54106-ZTBL SKIN LESIONS, OVER 4 11/11/19 14 14447-HDGZ SKIN LESIONS, OVER 4 04/15/20 13 77837-XJVX SKIN LESIONS, OVER 4 05/19/20 14 50211-YENP SKIN LESIONS, OVER 4 08/05/20 13 13989-RODC SKIN LESIONS, OVER 4 11/30/19 15 85675-UVKT SKIN LESIONS, OVER 4 02/11/20 14 43288-TPIB SKIN LESIONS, OVER 4 02/29/20 15 25297-IVFO SKIN LESIONS, OVER 4 08/30/20 14 59898-USJD SKIN LESIONS, OVER 4 08/10/20 19 86702-KZXW SKIN LESIONS, OVER 4 08/15/20 17 09682-ZGEI SKIN LESIONS, OVER 4 04/17/20 18 53181-HIWU SKIN LESIONS, OVER 4 01/30/20 16 02081-QKIY SKIN LESIONS, OVER 4 09/26/19 16 09138-XSDD SKIN LESIONS, OVER 4 11/27/19 17 Insurance Providers Payer Name Payer Address Payer Phone Subscriber Number Group Number Insured Name Patient Relationship to Insured Coverage Start Date Coverage End Date [employer] Preferred [address] [place] [address] [id number] Estella Nicole Self - patient is the insured Medical (General) History Medical History History ICD Code chicken pox diabetic type two High blood pressure Surgical History Surgery Date(Month/Year) raised bladder and closed up vagina 2016 Stents put into left leg 04/05
--- NOTE | 2025-09-01 13:58 | HO.ANESPROP2 ---
Documented by User: Maryam Roman NP 09/01/25 14:01 HPI - Anesthesia Eval Consult details Narrative: 85yo F for Cystoscopy Bladder Stone Removal PVD - asa/plavix Anesthesia Pre-Procedure Meds Is the patient on any of the following meds?: GLP1/DPP4 PMFSH Active Problems Active Problems: All Active Problems Neurogenic bladder (Acute) Bladder stones (Acute) Mixed hyperlipidemia (Acute) Past Medical History Medical History Bladder stones Osteoporosis History of urinary self-catheterization Neurogenic bladder PVD (peripheral vascular disease) HTN (hypertension) Grace catheter in place Diabetic neuropathy associated with diabetes mellitus due to underlying condition Mixed hyperlipidemia Essential hypertension Non-insulin dependent type 2 diabetes mellitus Lower back pain Physical deconditioning Fall Family History Family history of problems with anesthesia: No Surgical History Surgical History History of surgery on left wrist Hx of colonoscopy History of pubovaginal sling History of Problems with Anesthesia: No Social History Social History Household Members: Family Housing: House Are you a primary in home caregiver to a significant other at home: No Do you presently have visiting nurse or other home services: Yes (VNA, PT) Patient Tobacco Use Status: Never used Tobacco Have you been hit, kicked, punched, or otherwise hurt by someone within the past year? If so, by whom?: No Are you DNR?: No Advance Directives: No Advance Directives Information Provided: Yes service: No Meds Allergies Allergy/AdvReac Type Severity Reaction Status Date / Time No Known Allergies (No Known Allergy Verified 08/06/25 13:04 Allergies*) Home Medications ?Medication ?Instructions ?Recorded ?Confirmed ?Last Taken ?Type atorvastatin 40 mg tablet 40 mg PO DAILY 08/06/23 09/02/25 Unknown History clopidogrel 75 mg tablet 75 mg PO DAILY 08/06/23 09/02/25 08/29/25 History metformin 1,000 mg tablet 1,000 mg PO DAILY 08/06/23 09/02/25 08/29/25 History sitagliptin phosphate 100 mg 100 mg PO DAILY 08/06/23 09/02/25 08/29/25 History tablet (Januvia) aspirin 81 mg chewable tablet 81 mg PO DAILY 08/29/23 09/02/25 08/29/25 History multivitamin 1 tab PO DAILY 08/29/23 09/02/25 08/29/23 History Assessment and Plan Assessment Anesthesia Assessment: Chart Reviewed Final Anesthetic Review Family History of Problems with Anesthesia: No History of Problems with Anesthesia: No Documented by User: Nando Basilio MD 09/06/25 08:36 [facility] Past Medical History Medical History Bladder stones Osteoporosis History of urinary self-catheterization Neurogenic bladder PVD (peripheral vascular disease) HTN (hypertension) Grace catheter in place Diabetic neuropathy associated with diabetes mellitus due to underlying condition Mixed hyperlipidemia Essential hypertension Non-insulin dependent type 2 diabetes mellitus Lower back pain Physical deconditioning Fall Functional capacity: wheelchair bound Surgical History Surgical History History of surgery on left wrist Hx of colonoscopy History of pubovaginal sling Social History Social History Household Members: Family Housing: House Are you a primary in home caregiver to a significant other at home: No Do you presently have visiting nurse or other home services: Yes (VNA, PT) Patient Tobacco Use Status: Never used Tobacco Have you been hit, kicked, punched, or otherwise hurt by someone within the past year? If so, by whom?: No Are you DNR?: No Advance Directives: No Advance Directives Information Provided: Yes service: No Meds Allergies Allergy/AdvReac Type Severity Reaction Status Date / Time No Known Allergies (No Known Allergy Verified 08/06/25 13:04 Allergies*) Home Medications ?Medication ?Instructions ?Recorded ?Confirmed ?Last Taken ?Type atorvastatin 40 mg tablet 40 mg PO DAILY 08/06/23 09/02/25 Unknown History clopidogrel 75 mg tablet 75 mg PO DAILY 08/06/23 09/02/25 08/29/25 History metformin 1,000 mg tablet 1,000 mg PO DAILY 08/06/23 09/02/25 08/29/25 History sitagliptin phosphate 100 mg 100 mg PO DAILY 08/06/23 09/02/25 08/29/25 History tablet (Januvia) aspirin 81 mg chewable tablet 81 mg PO DAILY 08/29/23 09/02/25 08/29/25 History multivitamin 1 tab PO DAILY 08/29/23 09/02/25 08/29/23 History Exam Airway Mallampati Class: III TM Dist: >3cm Neck ROM: Full Loose/Missing/Broken Teeth: Upper and Lower (edentulous) Assessment and Plan Final Anesthetic Review NPO: Yes ASA Class: III Final Preanesthetic Review: No Changes in Pt Med Stat, Meds/Allgs Chart Reviewed, Consent Obtained/Reviewed and Anes Risks/Benef Reviewed Patient Risk: Low Procedure Risk: Low Anesthetic Plan Anesthetic Plan: GA Disposition: Standard PACU
[2025-09-06 07:25] LABS: Glucose, Whole Blood 150 mg/dL (60-115)
[2025-09-06] MEDS: Lactated Ringers 1,000 ML 100 ML IVCONT (07:37)
[2025-09-06 07:40] VITALS: BP 165/77; PULSE 83; RESP 20; TEMP 36.9; O2SAT 97; BMI 19.8
--- NOTE | 2025-09-06 08:48 | MHC.SHP ---
Pre-Procedural Eval Section A - 24 Hr Update-Section A only Date of Service: 09/06/25 The patient is an INPATIENT: No Changes since office visit: No Cold of Flu in the past 2 weeks, No New Medical Problems, No Changes in Medication and No Patient answered all questions The patient has been examined within 24 hours of the surgical procedure. The History & Physical has been completed within 30 days and I have reviewed it.: Yes Section B - Complete if H&P > 30 days Chief Complaint: Calculus in bladder Details of Present Illness: Laser bladder calculus Allergies: Allergies Allergy/AdvReac Type Severity Reaction Status Date / Time No Known Allergies (No Known Allergy Verified 08/06/25 13:04 Allergies*) Plan I have reviewed the history and physical and performed a pertinent physical examination on my patient. No changes have occurred unless specified. Time Spent With Patient Time: Total time managing care of this patient today ____ minutes.
--- NOTE | 2025-09-06 11:51 | W.PM.OPN ---
Operative Note Operative Note Date of Service: 09/06/25 Narrative: PreOperative Diagnosis: Bladder Stone Post Operative Diagnosis: Bladder Stone - 8 cm Procedure: 1) Cystoscopy 2) Bladder Stone Laser - modifier 22 - 200% longer than typical - 2 hours lasering time vs typical 30 min Surgeon: Dr Kofi Guardado Anesthesia: LMA Indications for procedure: Recurrent UTI with hematuria. Imaging shows 8 cm bladder stone Procedure: After informed consent was verified the patient was brought to the operating room and placed in a supine position. Anesthesia was administered per protocol. The patient was placed in modified dorsal lithotomy position and prepped and draped in a sterile fashion. Safety pause time-out was performed. Antibiotics being given. Cystoscopy was performed. Laser bridge resectoscope placed. Bladder entered. Large stone as previously documented on imaging was seen. Bladder irritation. Stone almost took up entire bladder. Using a 980nm holmium laser with bladder stones settings the stone was slowly broken into small pieces - 35 w of energy between joules and hertz. The small pieces were irrigated from the bladder. Procedure time approximately 2-1/2 hours. 2 hours of lasering time. Total joules used proximally 250,000. Both the total amount of energy in the total lasering time was about 200% longer than typical. Three time standard. Irrigation of stones was difficult. Upon examination it was determined her vagina had a prior colpocleisis procedure which was distorting the anatomy of the bladder. This allowed pooling. Upon completion the resectoscope was removed. Twenty-two [place] Grace catheter with 10 cc balloon was placed. The patient tolerated the procedure well. They were extubated in operating room and transferred in stable conditions recovery area. Pathology: Bladder Stones Drains: Catheter was above
[2025-09-06 12:00] VITALS: BP 149/55; PULSE 79; RESP 20; TEMP 36.2; O2SAT 96
[2025-09-06 12:15] VITALS: BP 134/59; PULSE 75; RESP 16; TEMP 36.1; O2SAT 97
== END 2025-09-06 13:33 | disposition home or self-care (01) ==
PROVIDERS: PCP Internal Medicine; Visit Provider Urology
PROC: 0TCB8ZZ Extirpation of Matter from Bladder, Via Natural or Artificial Opening Endoscopic (ICD-10-PCS; CPT 52352; principal; 2025-09-06 08:40)
DX: N21.0 Calculus in bladder (principal); N39.0 Urinary tract infection, site not specified; R31.9 Hematuria, unspecified; N31.9 Neuromuscular dysfunction of bladder, unspecified; N39.43 Post-void dribbling; I10 Essential (primary) hypertension; E78.2 Mixed hyperlipidemia; E11.40 Type 2 diabetes mellitus with diabetic neuropathy, unspecified; I73.9 Peripheral vascular disease, unspecified; M81.0 Age-related osteoporosis without current pathological fracture; Z79.899 Other long term (current) drug therapy; Z79.82 Long term (current) use of aspirin; Z79.84 Long term (current) use of oral hypoglycemic drugs; Z79.02 Long term (current) use of antithrombotics/antiplatelets
CPT/HCPCS: 52325; 52318; 82947; J1100; J1956; J2003; J2704; J3010

== ENCOUNTER → 2025-09-06 07:05 | Outpatient (BNV) | payer MEDICARE, SELFPAY | PROVIDERS: PCP Internal Medicine; Visit Provider Urology | DX: N21.0 Calculus in bladder (principal); N02.9 Recurrent and persistent hematuria with unspecified morphologic changes | CPT/HCPCS: 52318 ==

== ENCOUNTER 2025-09-10 11:45 | Emergency (ER) | payer MEDICARE, SELFPAY ==
--- OUTSIDE RECORDS SUMMARY | 2024-09-17 06:00 | XMS_ITS ---
Author Organization [facility] Address [address] [place] [address] Care Team Providers Care Blindstitch Hemmer Name Role Phone Tana Ortega Primary Care Provider Unavailab Radha Pop [phone] Encounters Encounter Location Date Provider Diagnosis [address] [address] 09/17/2024 Radha Ingram Plan Of Treatment No Information Progress Notes * Estella NICOLEDOB:1940 (85 yo F)Acc No.[id number]:09/17/2024 Progress Note Patient: Estella AGUILAR Provider: Pattie Ingram DPM :1940 A ge:84 Y S ex:Female Date:09/17/2024 Address:[address] [place], [place] [id number] Pcp:Tana Ortega Subjective: * Chief Complaints: * * Medical History: Objective: * Vitals: Assessment: Plan: * Treatment: * Images: * The named appointment provid er may or may not be the originator of this progress note, and it is not deemed complete until electronically signed by the appointment provider. Sign off status: Pending * Provider: Pattie Ingram DPM Date: 0 09/17/2024 Generated for Shaunna bernal/Minh/eTransmitting on: 11/11/2024 12:13 PM EST
--- OUTSIDE RECORDS SUMMARY | 2024-12-10 04:15 | XMS_ITS ---
Author Organization [facility] Address [address] [place] [address] Care Team Providers Care Supervisor Finishing Department Name Role Phone Tana Ortega Primary Care Provider Unavailab Radha Pop [phone] Encounters Encounter Location Date Provider Diagnosis [address] [address] 12/10/2024 Radha Ingram Plan Of Treatment No Information Progress Notes * Estella NICOLEDOB:1940 (85 yo F)Acc No.[id number]:12/10/2024 Progress Note Patient: Estella AGUILAR Provider: Pattie Ingram DPM :1940 A ge:84 Y S ex:Female Date:12/10/2024 Address:[address] [place], [place] [address] Pcp:Tana Ortega Subjective: * Chief Complaints: * * Medical History: Objective: * Vitals: Assessment: Plan: * Treatment: * Images: * The named appointment provid er may or may not be the originator of this progress note, and it is not deemed complete until electronically signed by the appointment provider. Sign off status: Pending * Provider: Pattie Ingram DPM Date: 0 12/10/2024 Generated for Shaunna bernal/Minh/eTransmitting on: 1 11/11/2024 12:13 PM EST
--- OUTSIDE RECORDS SUMMARY | 2025-03-11 04:15 | XMS_ITS ---
Author Organization [facility] Address [address] [place] [address] Care Team Providers Care Integrity Specialist Name Role Phone Tana Ortega Primary Care Provider Unavailab Radha Pop [phone] Encounters Encounter Location Date Provider Diagnosis [address] [address] 03/11/2025 Radha Ingram Plan Of Treatment No Information Progress Notes * Estella NICOLEDOB:1940 (85 yo F)Acc No.[id number]:03/11/2025 Progress Note Patient: Estella AGUILAR Provider: Pattie Ingram DPM :1940 A ge:84 Y S ex:Female Date:03/11/2025 Address:[address] [place], [place] [address] Pcp:Tana Ortega Subjective: * Chief Complaints: * [...] 0 03/11/2025 Generated for Shaunna bernal/Minh/eTransmitting on: 1 11/11/2024 12:13 PM EST
--- OUTSIDE RECORDS SUMMARY | 2025-05-27 03:30 | XMS_ITS ---
Author Organization [facility] Address [address] [place] [address] Care Team Providers Care Retail And Restaurant Name Role Phone Tana Ortega Primary Care Provider Unavailab Radha Pop Unavailable [phone] Medications Medication SIG (Take, Route, Frequency, Duration) Notes Start Date End Date Status Lac-Hydrin Twelve No t-Taking glipiZIDE Not-Taking Ammonium Lactate 12 % 1 application to affected area Externally Twice a day to dry areas of skin on feet; Duration: 30 days 03/09/2024 Active Clotrimazole-Betamethason e 1-0.05 % 1 application Externally Twice a day; Duration: 30 days 07/27/2021 Active metFORMIN HCl Active Plavix Active Lovastatin Active Lisinopril Active Lac-Hydrin Twelve 12 % 1 application Externally Twice a day; Duration: 30 days 08/10/2019 Active Atorvastatin Calcium Active Encounters Encounter Location Date Provider Diagnosis [facility] [address] [place] [address] 05/27/2025 Radha Ingram Plan Of Treatment No Information Progress Notes * Estella NICOLEDOB:1940 (85 yo F)Acc No.[id number]:05/27/2025 Progress Note Patient: Estella AGUILAR Provider: Pattie Ingram DPM :1940 A ge:85 Y S ex:Female Date:05/27/2025 Address:[address] [place], [place] [id number] Pcp:Tana Ortega Subjective: * Chief Complaints: * * Medical History: C hicken pox, Diabetic type two, High blood pressure. * Medications: T aking Plavix , Taking Atorvastatin Calcium , Taking Lac-Hydrin Twelve 12 % Lotion 1 application Externally Twice a day , Taking Lisinopril , Taking Lovastatin , Taking metFORMIN HCl , Taking Clotrimazole-Betamethasone 1-0.05 % Cream 1 application Externally Twice a day , Taking Ammonium Lactate 12 % Cream 1 application to affected area Externally Twice a day to dry areas of skin on feet , Not-Taking/PRN glipiZIDE , Not-Taking/PRN Lac-Hydrin Twelve Objective: * Vitals: Assessment: Plan: * Treatment: * Images: * The named appointment provid er may or may not be the originator of this progress note, and it is not deemed complete until electronically signed by the appointment provider. Sign off status: Pending * Provider: Pattie Ingram DPM Date: 0 05/27/2025 Generated for Shaunna bernal/Minh/Higinio on: 1 11/11/2024 12:13 PM EST
[2025-09-10 11:51] VITALS: BP 138/72; BP 157/68; PULSE 67; PULSE 70; RESP 17; TEMP 36.9; O2SAT 97; O2SAT 99; BMI 18.9
--- NOTE | 2025-09-10 12:09 | MHC.EDTECH ---
2000 ml emptied from brewer catheter. Urine dark/foul smelling. RN aware.
--- OUTSIDE RECORDS SUMMARY | 2025-09-10 12:13 | XMS_ITS | Patient Health Record ---
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, bilateral legs (I70.203) Active confirmed Problem Non-pressure chronic ulcer of other part of left foot limited to breakdown of skin (L97.521) Active confirmed Problem Polyneuropathy due to type 2 diabetes mellitus (958966617) Type 2 diabetes mellitus with diabetic polyneuropathy (E11.42) Active confirmed Problem Acquired hammer toe of right foot (8845955500474496) Hammer toe of right foot (M20.41) Active confirmed Problem Acquired hammer toe of left foot (1411908582227944) Hammer toe of left foot (M20.42) Active confirmed Problem PlantarFlexion o f metatarsal of left foot (M21.6X2) Active confirmed Problem Ulcer of right heel (disorder) (34071789530552124 ) Skin ulcer of right heel, limited to breakdown of skin (L97.411) Active confirmed Problem Neuropathic ulce r, limited to breakdown of skin (L98.491) Active confirmed Encounters Encounter Location Date Provider Diagnosis [facility] [address] [address] 09/11/2024 [facility] [address] 12/08/2024 [facility] [address] 03/09/2025 [facility] [address] 05/27/2025 [facility] [address] 05/27/2025 Radhabalbir Ingram Plan Of Treatment Pending Test Test Name Order Date X ray : Foot, left 3V 06/09/2020 X ray : Foot, right 3V 06/09/2020 80563-BSHLKPM NAIL, 6 OR MORE 06/09/2020 73321-JABBOKH NAIL, 6 OR MORE 08/10/2019 95963-EEAYYYX NAIL, 6 OR MORE 07/27/2021 02345-FTRUVVO NAIL, 6 OR MORE 04/01/2023 52285-NHIEQTL NAIL, 6 OR MORE 10/25/2022 71816-UHZDHMQ NAIL, 6 OR MORE 03/09/2024 88820-AFWDGJT NAIL, 6 OR MORE 04/01/2012 90356-GVEOGQZ NAIL, 6 OR MORE 10/15/2012 55966-WEFFIBB NAIL, 6 OR MORE 01/12/2013 91885-NPSWQRT NAIL, 6 OR MORE 04/15/2013 06670-TMRNDAD NAIL, 6 OR MORE 11/11/2013 73183-EIUOGLJ NAIL, 6 OR MORE 08/05/2013 86380-CGIENSS NAIL, 6 OR MORE 05/19/2014 33916-NTUDFVA NAIL, 6 OR MORE 02/10/2014 49278-IIAGNIF NAIL, 6 OR MORE 11/29/2014 62348-NABYVSG NAIL, 6 OR MORE 02/28/2015 47309-ZKRIFIW NAIL, 6 OR MORE 08/30/2014 21452-KAVNUAM NAIL, 6 OR MORE 09/26/2015 11058-GZODLKB NAIL, 6 OR MORE 01/30/2016 44624-DXQEERH NAIL, 6 OR MORE 11/26/2016 81704-HQSIXMH NAIL, 6 OR MORE 08/15/2017 38336-VYEZQIW NAIL, 6 OR MORE 04/17/2018 05229-Zbuvfgck Plate 04/17/2018 73275-Tghranqu Plate 08/15/2017 46364-Batmezka Plate 11/26/2016 03741-Nhxuuopv Plate 09/26/2015 01328-Rlziqbst Plate 01/30/2016 94086-Jelmtiaa Plate 02/28/2015 97229-Sqgnbavb Plate 11/29/2014 75020-Iqiywphb Plate 08/30/2014 13867-Hoagiddi Plate 05/19/2014 92213-Xkrauspr Plate 02/10/2014 28411-Jugqpbzn Plate 11/11/2013 14479-Pmsykpse Plate 08/05/2013 29615-Yspkgoov Plate 07/27/2021 71772-Etuwrgvg Plate 10/25/2022 72304-Qushzufq Plate 08/10/2019 54589-Algbfkds Plate 06/09/2020 75190-Ecibjdrx Plate Each Additional 12105-Yoonbuzn Plate Each Additional 05/2023 97718-Shordvzq Plate Each Additional 07/2021 42323-Xqjyhlrf Plate Each Additional 50741-Scvtunqs Plate Each Additional 11/2013 71175-Uhlokitg Plate Each Additional 80705-Ggyngmzn Plate Each Additional 04622-Umhzsfmy Plate Each Additional 24033- Debride <25 sq cm 10/15/2012 47854- Debride <25 sq cm 08/30/2014 98550- Debride <25 sq cm 02/28/2015 10865- Debride <25 sq cm 02/10/2014 70146- Debride <25 sq cm 11/29/2014 26335- Debride <25 sq cm 05/19/2014 61260- Debride <25 sq cm 08/05/2013 06425- Debride <25 sq cm 04/15/2013 24000- Debride <25 sq cm 11/11/2013 66622- Debride <25 sq cm 01/12/2013 52080- Debride <25 sq cm 10/25/2022 17077- Debride <25 sq cm 06/09/2020 79714- Debride <25 sq cm 08/10/2019 61122- Debride <25 sq cm 04/01/2023 43773- Debride <25 sq cm 03/09/2024 49240-KQDL SKIN LESIONS, OVER 4 03/09/20 24 85911-BLHM SKIN LESIONS, OVER 4 04/01/20 23 45115-DADB SKIN LESIONS, OVER 4 06/09/20 20 03327-LOVF SKIN LESIONS, OVER 4 07/27/20 21 42393-OKSI SKIN LESIONS, OVER 4 10/25/19 23 97110-VTTM SKIN LESIONS, OVER 4 01/13/20 13 85726-MZCL SKIN LESIONS, OVER 4 10/15/19 13 59421-RIVJ SKIN LESIONS, OVER 4 04/01/20 12 91477-IJVW SKIN LESIONS, OVER 4 11/11/19 14 48918-SJQD SKIN LESIONS, OVER 4 04/15/20 13 60306-HAYA SKIN LESIONS, OVER 4 05/19/20 14 62856-WXHT SKIN LESIONS, OVER 4 08/05/20 13 60172-EYNU SKIN LESIONS, OVER 4 11/30/19 15 47590-IGBP SKIN LESIONS, OVER 4 02/11/20 14 24115-RKFT SKIN LESIONS, OVER 4 02/29/20 15 35717-DZQA SKIN LESIONS, OVER 4 08/30/20 14 73852-RQBO SKIN LESIONS, OVER 4 08/10/20 19 88376-WDEK SKIN LESIONS, OVER 4 08/15/20 17 24636-DAZS SKIN LESIONS, OVER 4 04/17/20 18 48937-KDMB SKIN LESIONS, OVER 4 01/30/20 16 17106-XYSM SKIN LESIONS, OVER 4 09/26/19 16 71083-GHTN SKIN LESIONS, OVER 4 11/27/19 17 Insurance Providers Payer Name Payer Address Payer Phone Subscriber Number Group Number Insured Name Patient Relationship to Insured Coverage Start Date Coverage End Date [employer] Pref[employer] [address] [place] [address] [id number] Estella Nicole Self - patient is the insured Medical (General) History Medical History History ICD Code chicken pox diabetic type two High blood pressure Surgical History Surgery Date(Month/Year) raised bladder and closed up vagina 2016 Stents put into left leg 04/05
--- NOTE | 2025-09-10 12:38 | ED.FEMALEGU ---
HPI - Female Genitourinary General Chief complaint: Urogenital-Female Stated complaint: BLOOD IN CATHETER BAG Time Seen by Provider: 09/10/25 12:38 History of Present Illness ED Provider: Wilmar DANIELLE Narrative: The patient is an 85-year-old woman who came to the hospital 4 days ago on Saturday for surgery with Dr. Guardado for a bladder stone. She received IV antibiotics at the time of surgery and she was discharged with a urinary catheter in place and also she was discharged with nitrofurantoin 100 mg daily. She has been at home. Her sons has been helping to look after her. Today the sons were concerned that there might has been blood in the catheter bag. The patient does not have any other symptoms. She has not had any fevers, sweats, chills. No nausea or vomiting. No abdominal pain or back pain. Her son says that she has been taking the nitrofurantoin. Here in the emergency room the patient looks entirely well. She seems to be a somewhat frail 85-year-old. Her abdomen is benign. No CVA percussion tenderness. Investigations in the emergency room include a normal white count and differential. Renal function is stable. urinalysis shows 3+ blood but only 6-10 red cells on microscopy. She has 3+ leukocyte esterase, greater than 50 white cells, and 4+ bacteria. The patient does not appear ill or toxic. She has normal vital signs. I communicated by text with Dr. Guardado. Ultimately I decided that the patient looked well enough to return home. I will prescribe cephalexin has a an alternative antibiotic. It is not clear to me whether this abnormal urinalysis represents an acute infection. perhaps this is simply an abnormal urinalysis associated with the indwelling urinary catheter. Since the patient does not seem ill otherwise I think she may be discharged. The catheter seems to be functioning appropriately. Related Data Home Medications ?Medication ?Instructions ?Recorded ?Confirmed atorvastatin 40 mg tablet 40 mg PO DAILY 08/06/23 09/02/25 clopidogrel 75 mg tablet 75 mg PO DAILY 08/06/23 09/02/25 metformin 1,000 mg tablet 1,000 mg PO DAILY 08/06/23 09/02/25 sitagliptin phosphate 100 mg 100 mg PO DAILY 08/06/23 09/02/25 tablet (Januvia) aspirin 81 mg chewable tablet 81 mg PO DAILY 08/29/23 09/02/25 multivitamin 1 tab PO DAILY 08/29/23 09/02/25 Previous Rx's ?Medication ?Instructions ?Recorded famotidine 20 mg tablet 20 mg PO BEDTIME #30 tabs 08/13/23 bethanechol chloride 50 mg tablet 50 mg PO BID 90 days #180 tabs 07/06/25 ascorbic acid (vitamin C) 1,000 mg 1,000 mg PO DAILY 90 days #90 caps 09/06/25 capsule nitrofurantoin 100 mg PO DAILY 30 days #30 caps 09/06/25 monohydrate/macrocrystals 100 mg capsule (Macrobid) cephalexin 500 mg capsule 500 mg PO BID 7 days #14 caps 09/10/25 Allergies Allergy/AdvReac Type Severity Reaction Status Date / Time No Known Allergies (No Known Allergy Verified 09/10/25 12:00 Allergies*) [facility] Past Medical History Medical History Bladder stones Osteoporosis History of urinary self-catheterization Neurogenic bladder PVD (peripheral vascular disease) HTN (hypertension) Grace catheter in place Diabetic neuropathy associated with diabetes mellitus due to underlying condition Mixed hyperlipidemia Essential hypertension Non-insulin dependent type 2 diabetes mellitus Lower back pain Physical deconditioning Fall Surgical History History of surgery on left wrist Hx of colonoscopy History of pubovaginal sling Social History Social History Household Members: Family Housing: House Are you a primary career information specialist to a significant other at home: No Do you presently have visiting nurse or other home services: Yes (VNA, PT) Patient Tobacco Use Status: Never used Tobacco Smoked in Last 30 Days: No Use of substances other than those prescribed or required for medical reasons: No Advance Directives: No Advance Directives Information Provided: No Do you have a plan to hurt others: No Plan service: No Physical Exam Vital Signs: Vital Signs: Last Vital Signs Temp 98 F 09/10/25 18:11 Pulse 61 09/10/25 18:11 Resp 15 09/10/25 18:11 BP 160/58 H 09/10/25 18:11 Pulse Ox 98 09/10/25 18:11 O2 Del Method Room Air 09/10/25 18:11 BMI result Body Mass Index 18.9 Medications Administered Discontinued Medications Generic Name Dose Route Start Last Admin Trade Name Freq PRN Reason Stop Dose Admin Cephalexin HCl 1,000 mg 09/10/25 16:56 09/10/25 17:50 Cephalexin 500 Mg Capsule PO 09/10/25 16:57 1,000 mg ONCE ONE Administration Medical Decision Making Lab Data 09/10/25 12:46 09/10/25 12:46 Labs: Lab Results 09/10/25 09/10/25 Range/Units 12:46 14:12 WBC 6.7 (4.8-10.8) X10*3/uL RBC 4.12 L (4.20-5.50) X10*6/uL Hgb 12.0 (12.0-16.0) g/dl Hct 37.0 (37.0-47.0) % MCV 89.8 (80.0-98.0) fL MCH 29.1 (27.0-33.0) pg MCHC 32.4 (31.0-35.0) g/dl RDW 13.7 (11.0-16.0) % Plt Count 297 D (160-400) X10*3/uL MPV 9.8 (9.4-12.3) fL Immature Gran % (Auto) 0.3 (0.0-0.4) % Neut % (Auto) 45.7 (45-73) % Lymph % (Auto) 38.8 (20-40) % Kings % (Auto) 11.1 H (2-11) % Eos % (Auto) 3.5 (0-4) % Baso % (Auto) 0.6 (0-2) % Lymph # (Auto) 2.6 (1.2-4.9) X10*3/uL Kings # (Auto) 0.7 (0.1-1.2) X10*3/uL Eos # (Auto) 0.2 (0.0-0.4) X10*3/uL Baso # (Auto) 0.0 (0.0-0.2) X10*3/uL Abs Immat Gran (auto) 0.02 (0.00-0.03) X10*3/uL Absolute Neuts (auto) 3.0 (2.0-8.3) x10*3/uL Absolute Nucleated RBC 0.000 (0.0-0.012) X10*3/uL Nucleated RBC % (auto) 0.0 (0.0-0.2) /100WBC PT 13.2 (11.2-13.5) SEC INR 1.1 (0.9-1.1) Sodium 140 (135-145) mmol/L Potassium 3.7 (3.3-5.1) mmol/L Chloride 109 H (96-108) mmol/L Carbon Dioxide 23 (22-29) mmol/L Anion Gap 12 (12-20) BUN 16 (9-16) mg/dL Creatinine 0.77 (0.5-1.4) mg/dL Estim Creat Clear Calc 40.1 Estimated GFR > 60 Random Glucose 172 H (60-115) mg/dL Calcium 9.2 (8.4-10.2) mg/dL Total Bilirubin 0.2 (0.0-1.0) mg/dL AST 21 (5-31) U/L ALT 13 (0-31) U/L Alkaline Phosphatase 71 (39-117) U/L Total Protein 6.4 L (6.5-8.0) g/dL Albumin 3.5 (3.5-5.0) g/dL Urine Color Yellow Urine Appearance Turbid Urine pH 6.5 (5.0-9.0) Ur Specific Rowland <= 1.005 (1.005-1.025) Urine Protein 100 (2+) H (Neg-Trace) mg/dL Urine Glucose (UA) Negative (Negative) mg/dL Urine Ketones Negative (Negative) mg/dL Urine Blood Large (3+) H (Negative) Urine Nitrite Negative (Negative) Ur Leukocyte Esterase Large (3+) H (Negative) Urine RBC 6-10 H (0-2) /HPF Urine WBC >50 H (0-5) /HPF Ur Squamous Epith Cells >20 (0-2) /HPF Urine Bacteria 4+ (None Seen) Hyaline Casts 0-2 (0-2) /LPF Discharge Plan Discharge Clinical Impression: Abnormal urinalysis, Indwelling urinary catheter present Patient Disposition: Home, Self-Care Instructions: Grace Catheter Placement and Care (ED), How to Change a Catheter Drainage Bag (DC) Additional Instructions: Your blood testing was very reassuring today. There was no significant amount of blood in your urine. It is not clear whether there is a urine infection or not. I think it would be reasonable to switch the antibiotics you has been taking to see if this has any benefit. Therefore please stop taking the nitrofurantoin for now. Please take the cephalexin 2 times a day as prescribed for 1 week. After finishing the cephalexin you may resume the nitrofurantoin although I hope that you will follow up with Dr. Guardado soon for any possible additional advice. Therefore please call Dr. Guardado's office on Saturday for a prompt follow up appointment. Return to the emergency room if significantly worse. Prescriptions: New cephalexin 500 mg capsule 500 mg PO BID 7 Days Qty: 14 0RF No Action bethanechol chloride 50 mg tablet 50 mg PO BID 90 Days Qty: 180 1RF atorvastatin 40 mg tablet 40 mg PO DAILY clopidogrel 75 mg tablet 75 mg PO DAILY metformin 1,000 mg tablet 1,000 mg PO DAILY Januvia 100 mg tablet 100 mg PO DAILY famotidine 20 mg tablet 20 mg PO BEDTIME Qty: 30 0RF multivitamin Tablet 1 tab PO DAILY aspirin 81 mg Tablet,Chewable 81 mg PO DAILY nitrofurantoin monohyd/m-cryst [Macrobid] 100 mg capsule 100 mg PO DAILY 30 Days Qty: 30 0RF Rx Instructions: must administer with a meal/food ascorbic acid (vitamin C) 1,000 mg capsule 1,000 mg PO DAILY 90 Days Qty: 90 0RF Referrals: Kofi Guardado MD [Physician, Urology] Interventions: ED Discharge Assessment Last Done: 09/10/25 18:11 Discharge Date/Time: 09/10/25 18:12 Print Language: Luxembourger
[2025-09-10 12:51] LABS: MANUAL DIFF FLAG NO
[2025-09-10 12:52] LABS: Hematocrit 37.0 % (37.0-47.0); Hemoglobin 12.0 g/dl (12.0-16.0); Imm Gran Abs Auto 0.02 X10*3/uL (0.00-0.03); Imm Gran Pct Auto 0.3 % (0.0-0.4); Lymphocytes Absolute Auto 2.6 X10*3/uL (1.2-4.9); Mean Corpuscular HGB Conc 32.4 g/dl (31.0-35.0); Mean Corpuscular Hemoglobin 29.1 pg (27.0-33.0); Mean Corpuscular Volume 89.8 fL (80.0-98.0); NRBC Abs Auto 0.000 X10*3/uL (0.0-0.012); NRBC Pct Auto 0.0 /100WBC (0.0-0.2); Platelet Count 297 X10*3/uL (160-400); Red Blood Count 4.12 X10*6/uL (4.20-5.50); White Blood Count 6.7 X10*3/uL (4.8-10.8)
[2025-09-10 12:57] LABS: INTERNATIONAL NORM RATIO 1.1 (0.9-1.1); Prothrombin Time 13.2 SEC (11.2-13.5)
[2025-09-10 13:12] LABS: Alanine Aminotransferase 13 U/L (0-31); Albumin Level 3.5 g/dL (3.5-5.0); Alkaline Phosphatase 71 U/L (39-117); Anion Gap 12 (12-20); Aspartate Amino Transferase 21 U/L (5-31); Blood Urea Nitrogen 16 mg/dL (9-16); Calcium 9.2 mg/dL (8.4-10.2); Carbon Dioxide 23 mmol/L (22-29); Chloride 109 mmol/L (96-108); Creatinine Clr Calc Pharmacy 40.1; Estimated Glomerular Filt Rate > 60; Potassium 3.7 mmol/L (3.3-5.1); Sodium 140 mmol/L (135-145); Total Protein 6.4 g/dL (6.5-8.0)
[2025-09-10 14:06] VITALS: BP 152/59; PULSE 63; RESP 15; TEMP 36.6; O2SAT 96
[2025-09-10 14:17] LABS: Appearance Urine Turbid; Glucose Urine UA Negative (Negative); PH 6.5 (5.0-9.0); Specific Gravity - Urine <= 1.005 (1.005-1.025); UMIC TRIGGER UACC YES
[2025-09-10 14:31] LABS: UACC Culture Trigger YES
[2025-09-10 15:50] VITALS: BP 153/66; PULSE 62; RESP 15; TEMP 36.7; O2SAT 98
--- NOTE | 2025-09-10 16:45 | PC.NURSE ---
new drainage bag placed as patient's original catheter bag was noted to have a leak. no difficulties in transition noted.
[2025-09-10 17:29] VITALS: BP 160/58; PULSE 61; RESP 15; TEMP 36.6; O2SAT 98
--- NOTE | 2025-09-10 18:10 | PC.NURSE ---
patient and family member educated on how to empty indwelling catheter drainage bag. teachback method applied prior to discharge. patient and family also provided w/ additional instructions on discharge paperwork.
[2025-09-10 18:11] VITALS: BP 160/58; PULSE 61; RESP 15; TEMP 36.6; O2SAT 98
== END 2025-09-10 18:12 | disposition home or self-care (01) ==
PROVIDERS: Physician Assistant Medical; Emergency Provider Emergency Medicine; PCP Internal Medicine
DX: R82.90 Unspecified abnormal findings in urine (principal); Z96.0 Presence of urogenital implants; I10 Essential (primary) hypertension; E11.9 Type 2 diabetes mellitus without complications; E78.5 Hyperlipidemia, unspecified; Z98.890 Other specified postprocedural states
CPT/HCPCS: 36415; 80053; 81001; 85025; 85610; 87086; 99283; 99284